=== PATIENT | female | born 1990 | race Hispanic/Latino ===

== ENCOUNTER 2020-05-08 03:12 | Inpatient (IN) | payer SELFPAY ==
[2020-05-08 03:58] LABS: Urine Blood NEGATIVE (NEG); Urine Glucose NEGATIVE (NEG); Urine Protein NEGATIVE (NEG); Urine Specific Gravity 1.025 (1.005-1.030)
[2020-05-08] MEDS ORDERED: ONDANSETRON 4 MG/2 ML VIAL ONE ×3 (05:06→11:17)
[2020-05-08] MEDS ORDERED: NA CHLORIDE 0.9% 1,000 ML ONE ×2 (05:06→07:31)
[2020-05-08] MEDS ORDERED: MORPHINE 4 MG/ML SYR ONE (05:06)
[2020-05-08 05:09] LABS: Absolute Lymphocytes (CBC) 1.4 K/uL (0.7-4.9); Basophils % 1.4 % (0-1.3); Hematocrit 41.4 % (36.0-45.0); Lymphocytes % 8.1 % (15.3-44.8); MPV 8.5 fL (7.6-11.3); RBC Red Blood Cell Count 4.55 M/uL (3.86-4.86)
[2020-05-08 05:38] LABS: ALT/SGPT 68 U/L (12-78); AST/SGOT 27 U/L (15-37); Albumin 3.5 g/dL (3.4-5.0); Alkaline Phosphatase 112 U/L (45-117); BUN Blood Urea Nitrogen 8 mg/dL (7-18); Bicarbonate 22 mmol/L (21-32); Bilirubin Direct 0.2 mg/dL (0-0.2); Bilirubin Total 0.8 mg/dL (0.2-1.0); Glucose Level 134 mg/dL (74-106); Lipase 130 U/L (73-393); Potassium 3.3 mmol/L (3.5-5.1); Protein, Total 7.9 g/dL (6.4-8.2); Sodium Level 137 mmol/L (136-145)
[2020-05-08] MEDS ORDERED: CIPROFLOXACIN 400mg IV 400 MG/200 ML BAG IV ONE (07:31)
[2020-05-08] MEDS ORDERED: METRONIDAZOLE 500mg IVPB 500 MG/100 ML BAG IV ONE (07:31)
--- NOTE | 2020-05-08 07:47 | ER ---
Nurse's Notes [facility] Name: Shamika Sam Age: 30 yrs Sex: Female : 1990 Arrival Date: 05/08/2020 Time: 03:15 Bed 7 Private MD: Diagnosis: Abdominal tenderness;Fever, unspecified;Diverticulitis of large intestine without perforation or abscess without bleeding-sigmoid;Obesity, unspecified;Elevated white blood cell count Presentation: 05/08 03:27 Chief complaint: Patient states: lower pelvic pain that began 2 days ago; Denies lp1 burning with urination, fever; Reports some episodes of diarrhea. Coronavirus screen: Client denies travel out of the [place] in the last 14 days. At this time, the client does not indicate any symptoms associated with coronavirus-19. Ebola Screen: No symptoms or risks identified at this time. Risk Assessment: Do you want to hurt yourself or someone else? Patient reports no desire to harm self or others. Onset of symptoms was May 06, 2020. 03:27 Method Of Arrival: Ambulatory lp1 03:27 Acuity: JEANNETTE 3 lp1 03:32 Initial Sepsis Screen: Does the patient meet any 2 criteria? HR > 90 bpm. Does the lp1 patient have a suspected source of infection? No. Patient's initial sepsis screen is negative. 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 - Social history:: Smoking status: Patient denies any tobacco usage or history of. Screenin:35 Abuse screen: Denies threats or abuse. Denies injuries from another. Nutritional lp1 screening: No deficits noted. Tuberculosis screening: No symptoms or risk factors identified. Fall Risk None identified. Assessment: 04:55 General: Appears in no apparent distress. comfortable, Behavior is calm, cooperative. mg2 Pain: Complains of pain in left lower quadrant and suprapubic area Pain does not radiate. Pain currently is 8 out of 10 on a pain scale. Neuro: Level of Consciousness is awake, alert, obeys commands, Oriented to person, place, time, situation. Cardiovascular: Capillary refill < 3 seconds Patient's skin is warm and dry. Respiratory: Airway is patent Respiratory effort is even, unlabored, Respiratory pattern is regular, symmetrical. GI: Bowel sounds present X 4 quads. Abd is soft Reports lower abdominal pain. : Reports pain in suprapubic area. EENT: No signs and/or symptoms were reported regarding the EENT system. Derm: Skin is intact, is healthy with good turgor, Skin is pink, warm \T\ dry. normal. Musculoskeletal: Circulation, motion, and sensation intact. Capillary refill < 3 seconds. 05:47 Reassessment: Patient appears in no apparent distress at this time. Patient and/or mg2 family updated on plan of care and expected duration. Pain level reassessed. Patient is alert, oriented x 3, equal unlabored respirations, skin warm/dry/pink. 07:30 General: Appears in no apparent distress. uncomfortable, Behavior is calm, cooperative. em Pain: Complains of pain in right lower quadrant and left lower quadrant Pain currently is 9 out of 10 on a pain scale. Neuro: Level of Consciousness is awake, alert, obeys commands, Oriented to person, place, time, situation, Appropriate for age. Cardiovascular: Capillary refill < 3 seconds Patient's skin is warm and dry. Respiratory: Airway is patent Respiratory effort is even, unlabored, Respiratory pattern is regular, symmetrical. GI: Abdomen is round non-distended. Derm: Skin is intact, is healthy with good turgor, Skin is pink, warm \T\ dry. Musculoskeletal: Capillary refill < 3 seconds, Range of motion: intact in all extremities. 08:25 Reassessment: Patient appears in no apparent distress at this time. Patient and/or em family updated on plan of care and expected duration. Pain level reassessed. Patient is alert, oriented x 3, equal unlabored respirations, skin warm/dry/pink. 11:00 Reassessment: Patient appears in no apparent distress at this time. Patient and/or em family updated on plan of care and expected duration. Pain level reassessed. Patient is alert, oriented x 3, equal unlabored respirations, skin warm/dry/pink. reports pain is coming back, Dr. Valdez notified, received VO to repeat Zofran and Dilaudid. Vital Signs: 03:32 BP 155 / 101; Pulse 130; Resp 20; Temp 99.7(O); Pulse Ox 100% on R/A; Weight 122.47 kg lp1 (R); Height 5 ft. 1 in. (154.94 cm); Pain 9/10; 05:47 BP 133 / 94; Pulse 106; Resp 18; Pulse Ox 100% on R/A; mg2 05:48 BP 136 / 85; Pulse 109; Resp 18; Pulse Ox 96% on R/A; ea 07:30 BP 124 / 73; Pulse 103; Resp 20; Pulse Ox 98% on R/A; Pain 9/10; em 09:00 BP 126 / 82; Pulse 101; Resp 20; Pulse Ox 98% on R/A; Pain 6/10; em 10:30 BP 126 / 82; Pulse 97; Resp 18; Temp 98.2; Pulse Ox 97% on R/A; Pain 8/10; em 03:32 Body Mass Index 51.02 (122.47 kg, 154.94 cm) lp1 ED Course: 03:15 Patient arrived in ED. am2 03:31 Triage completed. lp1 03:31 Arm band placed on. lp1 04:29 Enrike Oates MD is Attending Physician. 7 04:36 Rola Núñez, CAT is Primary Nurse. ea 04:45 Inserted saline lock: 22 gauge in right forearm, using aseptic technique. Blood ds4 collected. 04:56 Patient has correct armband on for positive identification. Pulse ox on. NIBP on. mg2 04:56 No provider procedures requiring assistance completed. mg2 06:13 CT Abd/Pelvis - IV Contrast Only In Process Unspecified. EDMS 07:17 Attending Physician role handed off by Enrike Oates MD faisal 07:17 Francis Valdez MD is Attending Physician. faisal 07:44 Baljeet Raymundo MD is Hospitalizing Provider. faisal 11:08 Patient admitted, IV remains in place. em Administered Medications: 04:54 Drug: morphine 4 mg Route: IVP; Site: right forearm; mg2 05:47 Follow up: Response: No adverse reaction; Marked relief of symptoms mg2 04:54 Drug: Zofran (Ondansetron) 4 mg Route: IVP; Site: right forearm; mg2 05:47 Follow up: Response: No adverse reaction; Marked relief of symptoms mg2 04:55 Drug: NS 0.9% 1000 ml Route: IV; Rate: 1000 ml; Site: right forearm; mg2 05:45 Follow up: Response: No adverse reaction; IV Status: Completed infusion; IV Intake: mg2 1000ml 07:29 Drug: Flagyl 500 mg Volume: 100 ml; Route: IVPB; Rate: 200 ml/hr; Infused Over: 30 em mins; Site: right antecubital; 08:02 Follow up: Response: No adverse reaction; IV Status: Completed infusion; IV Intake: em 100ml 07:29 Drug: NS 0.9% 1000 ml Route: IV; Rate: 1000 ml; Site: right antecubital; em 09:47 Follow up: IV Status: Completed infusion; IV Intake: 1000ml em 07:42 Drug: Zofran (Ondansetron) 4 mg Route: IVP; Site: right antecubital; em 08:30 Follow up: Response: No adverse reaction em 07:45 Drug: Dilaudid 1 mg Route: IVP; Site: right antecubital; em 08:30 Follow up: Response: No adverse reaction; Marked relief of symptoms; Pain is decreased; em RASS: Alert and Calm (0) 08:03 Drug: Cipro 400 mg Volume: 200 ml; Route: IVPB; Infused Over: 60 mins; Site: right em antecubital; 09:46 Follow up: Response: No adverse reaction; IV Status: Completed infusion; IV Intake: em 200ml 09:46 Drug: Rocephin 2 grams Route: IV; Rate: per protocol; Site: right antecubital; em 10:30 Follow up: Response: No adverse reaction; IV Status: Completed infusion; IV Intake: 20mlem 11:08 Drug: Zofran (Ondansetron) 4 mg Route: IVP; Site: right antecubital; em 11:23 Follow up: Response: No adverse reaction em 11:10 Drug: Dilaudid 1 mg Route: IVP; Site: right antecubital; em 11:23 Follow up: Response: No adverse reaction em Intake: 05:45 IV: 1000ml; Total: 1000ml. mg2 08:02 IV: 100ml; Total: 1100ml. em 09:46 IV: 200ml; Total: 1300ml. em 09:47 IV: 1000ml; Total: 2300ml. em 10:30 IV: 20ml; Total: 2320ml. em Outcome: 07:47 Decision to Hospitalize by Provider. [facility] 11:07 Admitted to Med/surg accompanied by tech, via wheelchair, room 206, Report called to zeyad Martin RN 11:07 Condition: stable 11:07 Instructed on the need for admit, Demonstrated understanding of instructions. 11:23 Patient left the ED. em Signatures: Dispatcher [employer] EDFrancis Aguayo MD MD cha Munoz, Edgar, RN RN María Colon RN RN lp1 Zac Schulz ds4 Ana Paula Hassan Elena RN Aftab Andres ea, RN RN mg2 Holmes, Maurice, MD MD 7
--- NOTE | 2020-05-08 07:48 | EDPHYS ---
Physician Documentation [facility] Name: Shamika Sam Age: 30 yrs Sex: Female : 1990 Arrival Date: 05/08/2020 Time: 03:15 Bed 7 Private MD: ED Physician Francis Valdez HPI: 05/08 04:43 This 30 yrs old Female presents to ER via Ambulatory with complaints of mh7 Abdominal Pain - low, Pain With Urination. 04:43 The patient presents with abdominal pain in the lower abdomen. Onset: The mh7 symptoms/episode began/occurred 2 day(s) ago. The symptoms do not radiate. Associated signs and symptoms: Pertinent negatives: nausea, vomiting, and diarrhea, anorexia, blood in stools, chest pain, constipation, diarrhea, dysuria, fever, headache, hematuria, nausea, palpitations, shortness of breath, vaginal discharge, vomiting, vomiting blood. The symptoms are described as intermittent, vague, waxing/waning. Modifying factors: The symptoms are alleviated by nothing, the symptoms are aggravated by movement. Severity of pain: At its worst the pain was moderate yesterday, in the emergency department the pain is unchanged. 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 - Social history:: Smoking status: Patient denies any tobacco usage or history of. ROS: 04:43 Constitutional: Negative for fever, chills, and weight loss, Eyes: Negative for injury, mh7 pain, redness, and discharge, ENT: Negative for injury, pain, and discharge, Neck: Negative for injury, pain, and swelling, Cardiovascular: Negative for chest pain, palpitations, and edema, Respiratory: Negative for shortness of breath, cough, wheezing, and pleuritic chest pain, Back: Negative for injury and pain, : Negative for injury, bleeding, discharge, and swelling, MS/Extremity: Negative for injury and deformity, Skin: Negative for injury, rash, and discoloration, Neuro: Negative for headache, weakness, numbness, tingling, and seizure, Psych: Negative for depression, anxiety, suicide ideation, homicidal ideation, and hallucinations, Allergy/Immunology: Negative for hives, rash, and allergies, Endocrine: Negative for neck swelling, polydipsia, polyuria, polyphagia, and marked weight changes, Hematologic/Lymphatic: Negative for swollen nodes, abnormal bleeding, and unusual bruising. Exam: 04:43 Head/Face: Normocephalic, atraumatic. Eyes: Pupils equal round and reactive to light, mh7 extra-ocular motions intact. Lids and lashes normal. Conjunctiva and sclera are non-icteric and not injected. Cornea within normal limits. Periorbital areas with no swelling, redness, or edema. Neck: Trachea midline, no thyromegaly or masses palpated, and no cervical lymphadenopathy. Supple, full range of motion without nuchal rigidity, or vertebral point tenderness. No Meningismus. Chest/axilla: Normal chest wall appearance and motion. Nontender with no deformity. No lesions are appreciated. Cardiovascular: Regular rate and rhythm with a normal S1 and S2. No gallops, murmurs, or rubs. Normal PMI, no JVD. No pulse deficits. Respiratory: Lungs have equal breath sounds bilaterally, clear to auscultation and percussion. No rales, rhonchi or wheezes noted. No increased work of breathing, no retractions or nasal flaring. 04:43 Back: No spinal tenderness. No costovertebral tenderness. Full range of motion. Skin: Warm, dry with normal turgor. Normal color with no rashes, no lesions, and no evidence of cellulitis. MS/ Extremity: Pulses equal, no cyanosis. Neurovascular intact. Full, normal range of motion. Neuro: Awake and alert, GCS 15, oriented to person, place, time, and situation. Cranial nerves II-XII grossly intact. Motor strength 5/5 in all extremities. Sensory grossly intact. Cerebellar exam normal. Normal gait. Psych: Awake, alert, with orientation to person, place and time. Behavior, mood, and affect are within normal limits. 04:43 Constitutional: The patient appears in no acute distress, alert, awake, uncomfortable. 04:43 Abdomen/GI: Inspection: obese Bowel sounds: normal, in all quadrants, Palpation: moderate abdominal tenderness, in the suprapubic area and left lower quadrant, Rectal exam: the exam is deferred, because of patient request, Indicators: McBurney's point is not tender, Vidales's sign is negative, Rovsing's sign is negative, Obturator sign is negative, Psoas sign is negative, Liver: no appreciated palpable abnormalities, Hernia: not appreciated. Vital Signs: 03:32 BP 155 / 101; Pulse 130; Resp 20; Temp 99.7(O); Pulse Ox 100% on R/A; Weight 122.47 kg lp1 (R); Height 5 ft. 1 in. (154.94 cm); Pain 9/10; 05:47 BP 133 / 94; Pulse 106; Resp 18; Pulse Ox 100% on R/A; mg2 05:48 BP 136 / 85; Pulse 109; Resp 18; Pulse Ox 96% on R/A; ea 07:30 BP 124 / 73; Pulse 103; Resp 20; Pulse Ox 98% on R/A; Pain 9/10; em 09:00 BP 126 / 82; Pulse 101; Resp 20; Pulse Ox 98% on R/A; Pain 6/10; em 10:30 BP 126 / 82; Pulse 97; Resp 18; Temp 98.2; Pulse Ox 97% on R/A; Pain 8/10; em 03:32 Body Mass Index 51.02 (122.47 kg, 154.94 cm) lp1 MDM: 07:17 Patient medically screened. faisal 07:26 Differential diagnosis: bowel obstruction, diverticulitis, Irritable bowel syndrome, faisal non-specific abd pain, pancreatitis, Peritonitis, Ureterolithiasis, urinary tract infection. Data reviewed: vital signs, nurses notes, lab test result(s), EKG, radiologic studies, CT scan. Data interpreted: front desk monitor: rate is 109 beats/min, rhythm is regular, Pulse oximetry: on room air is 96 %. Test interpretation: by ED physician or midlevel provider:. Counseling: I had a detailed discussion with the patient and/or guardian regarding: the historical points, exam findings, and any diagnostic results supporting the discharge/admit diagnosis, lab results, radiology results. 05/08 03:44 Order name: Urine --Ancillary (enter results); Complete Time: 04:30 tt3 05/08 03:44 Order name: Urine Dipstick--Ancillary (enter results); Complete Time: 04:30 tt3 05/08 04:36 Order name: Basic Metabolic Panel; Complete Time: 05:47 ea 05/08 04:36 Order name: CBC with Diff 05/08 04:36 Order name: Hepatic Function; Complete Time: 05:47 ea 05/08 04:36 Order name: Lipase; Complete Time: 05:47 ea 05/08 04:42 Order name: CT Abd/Pelvis - IV Contrast Only [facility] 05/08 05:26 Order name: Manual Differential EDMS 05/08 05:53 Order name: Lactate; Complete Time: 07:03 [facility] 05/08 05:53 Order name: Procalcitonin; Complete Time: 07:03 [facility] 05/08 03:44 Order name: Urine Dipstick-Ancillary (obtain specimen); Complete Time: 03:47 tt3 05/08 03:44 Order name: Urine Test (obtain specimen); Complete Time: 03:47 tt3 05/08 04:36 Order name: IV Saline Lock; Complete Time: 04:49 05/08 04:36 Order name: Labs collected and sent; Complete Time: 04:49 ea Administered Medications: 04:54 Drug: morphine 4 mg Route: IVP; Site: right forearm; mg2 05:47 Follow up: Response: No adverse reaction; Marked relief of symptoms mg2 04:54 Drug: Zofran (Ondansetron) 4 mg Route: IVP; Site: right forearm; mg2 05:47 Follow up: Response: No adverse reaction; Marked relief of symptoms mg2 04:55 Drug: NS 0.9% 1000 ml Route: IV; Rate: 1000 ml; Site: right forearm; mg2 05:45 Follow up: Response: No adverse reaction; IV Status: Completed infusion; IV Intake: mg2 1000ml 07:29 Drug: Flagyl 500 mg Volume: 100 ml; Route: IVPB; Rate: 200 ml/hr; Infused Over: 30 em mins; Site: right antecubital; 08:02 Follow up: Response: No adverse reaction; IV Status: Completed infusion; IV Intake: em 100ml 07:29 Drug: NS 0.9% 1000 ml Route: IV; Rate: 1000 ml; Site: right antecubital; em 09:47 Follow up: IV Status: Completed infusion; IV Intake: 1000ml em 07:42 Drug: Zofran (Ondansetron) 4 mg Route: IVP; Site: right antecubital; em 08:30 Follow up: Response: No adverse reaction em 07:45 Drug: Dilaudid 1 mg Route: IVP; Site: right antecubital; em 08:30 Follow up: Response: No adverse reaction; Marked relief of symptoms; Pain is decreased; em RASS: Alert and Calm (0) 08:03 Drug: Cipro 400 mg Volume: 200 ml; Route: IVPB; Infused Over: 60 mins; Site: right em antecubital; 09:46 Follow up: Response: No adverse reaction; IV Status: Completed infusion; IV Intake: em 200ml 09:46 Drug: Rocephin 2 grams Route: IV; Rate: per protocol; Site: right antecubital; em 10:30 Follow up: Response: No adverse reaction; IV Status: Completed infusion; IV Intake: 20mlem 11:08 Drug: Zofran (Ondansetron) 4 mg Route: IVP; Site: right antecubital; em 11:23 Follow up: Response: No adverse reaction em 11:10 Drug: Dilaudid 1 mg Route: IVP; Site: right antecubital; em 11:23 Follow up: Response: No adverse reaction em Disposition: 05/08/20 07:47 Hospitalization ordered by Baljeet Raymundo for Inpatient Admission. Preliminary diagnosis are Abdominal tenderness, Fever, unspecified, Diverticulitis of large intestine without perforation or abscess without bleeding - sigmoid, Obesity, unspecified, Elevated white blood cell count. - Bed requested for Telemetry/MedSurg (Inpatient). - Status is Inpatient Admission. em - Condition is Stable. - Problem is new. - Symptoms have improved. Signatures: Dispatcher [employer] EDUT Francis Valdez MD MD cha Munoz, Edgar RN María Johnson RN RN lp1 Rola Núñez RN Jose Sanz ea, RN RN ja1 Aftab Limon RN RN mg2 Holmes, Maurice, MD MD mh7 Trim, Tyler tt3 Corrections: (The following items were deleted from the chart) 10:25 07:47 Hospitalization Ordered by Baljeet Raymundo MD for Inpatient Admission. Preliminary ja1 diagnosis is Abdominal tenderness; Fever, unspecified; Diverticulitis of large intestine without perforation or abscess without bleeding - sigmoid; Obesity, unspecified; Elevated white blood cell count. Bed requested for Telemetry/MedSurg (Inpatient). Status is Inpatient Admission. Condition is Stable. Problem is new. Symptoms have improved. faisal 11:23 10:25 05/08/2020 07:47 Hospitalization Ordered by Baljeet Raymundo MD for Inpatient em Admission. Preliminary diagnosis is Abdominal tenderness; Fever, unspecified; Diverticulitis of large intestine without perforation or abscess without bleeding - sigmoid; Obesity, unspecified; Elevated white blood cell count. Bed requested for Telemetry/MedSurg (Inpatient). Status is Inpatient Admission. Condition is Stable. Problem is new. Symptoms have improved. ja1
[2020-05-08] MEDS ORDERED: CEFTRIAXONE/SWI 1gm 2 GM/20 ML SYR ONE (07:53)
[2020-05-08] MEDS ORDERED: HYDROMORPHONE HCL 1 MG/ML INJ ONE ×2 (07:53→11:17)
--- NOTE | 2020-05-08 08:35 | P.HP ---
Certification for Inpatient Patient admitted to: Inpatient With expected LOS: >2 Midnights Practitioner: I am a practitioner with admitting privileges, knowledge of patient current condition, hospital course, and medical plan of care. Services: Services provided to patient in accordance with Admission requirements found in Title 42 Section 412.3 of the Code of Federal Regulations Patient History Date of Service: 05/08/20 Primary Care Provider: none Reason for admission: acute diverticulitis History of Present Illness: 30yo morbidly obese female, no significant PMH presents to ED with 2-3 days of worsening lower abdominal pain, associated with chills and nausea. Pain is worsened with movement and becomes nauseous when pain is severe. Most severe in LLQ. She reports otherwise in her usual state of health before this occurred. No recent illness / sick contacts, no diarrhea. CT abd/pelvis in ED revealed acute diverticulitis without perforation, leukocytosis: 16k. Patient does not appear septic. She was given pain medication but continued with pain and some nausea. Allergies No Known Allergie Allergy (Uncoded 11/22/16 14:48) Unknown Home medications list reviewed: Yes - Past Medical/Surgical History Diabetic: No Past Medical History: Patient denies medical history -: umbilical hernia repaired - Family History Family History: Reviewed- Non-Contributory (denies immediate family history - 2 maternal aunts with h/o diverticulitis) - Social History Smoking Status: Never smoker Alcohol use: Yes Place of Residence: Home Review of Systems 10-point ROS is otherwise unremarkable Physical Examination - Physical Exam General: Alert, Mild distress, Obese HEENT: Sclerae nonicteric Neck: Supple Respiratory: Clear to auscultation bilaterally Cardiovascular: No edema, Regular rate/rhythm, No murmurs Gastrointestinal: Non-distended, Tenderness (left-side, most severe in LLQ, +guarding) Musculoskeletal: No tenderness Integumentary: No rashes, No significant lesion Neurological: Normal speech, Normal affect - Studies Laboratory Data (last 24 hrs) 05/08/20 04:46: WBC 16.9 H, Hgb 13.8, Hct 41.4, Plt Count 327 05/08/20 04:46: Sodium 137, Potassium 3.3 L, BUN 8, Creatinine 0.64, Glucose 134 H, Total Bilirubin 0.8, AST 27, ALT 68, Alkaline Phosphatase 112, Lipase 130 Assessment and Plan - Advance Directives Does patient have a Living Will: No Does patient have a Durable POA for Healthcare: No Physician Review Additional Text: Acute Sigmoid Diverticulitis SIRS 2/4 - tachycardia, leukocytosis, afebrile, no tachypnea; qSOFA: 0 tachycardia secondary to acute sigmoid diverticulitis. improved with IVF bolus no evidence of perforation on exam continues with significant pain NPO with sips/ice chips, IVF pain control serial abdominal exams VTE: heparin Dispo: anticipate discharge home in ~48hrs Time Spent Managing Pts Care (In Minutes): 55
[2020-05-08 09:42] LABS: Blood Morphology Comment NOT SEEN (NOT SEEN); Platelet Estimate ADEQ
[2020-05-08 11:52] VITALS: BMI 51.0
[2020-05-08] MEDS: NA CHLORIDE 0.9% 1,000 ML IV SCH (12:08)
[2020-05-08] MEDS: HEPARIN 5000 UNIT/ML 1 ML VIAL SQ SCH ×2 (12:58→17:27)
--- NOTE | 2020-05-08 13:38 | RAD REPORT ---
EXAM DESCRIPTION: CT abdomen and pelvis with IV contrast CLINICAL HISTORY: 30 years Female ABD PAIN, lower pelvic pain that began 2 days ago TECHNIQUE: Axial CT imaging of the abdomen and pelvis was performed following the administration of intravenous contrast.. Oral contrast was not administered. Sagittal and coronal reconstructed image s were then performed. The CT study is performed according to ALARA (as low as reasonably achievabl e) or ALARA/IMAGE GENTLY, with automatic adjustment of mA and/or kV according to patient size. Performed on: 05/08/2020 at 6:02 AM. COMPARISON: No prior studies were available for comparison. FINDINGS: Lung bases: The lung bases are clear. There is minimal bibasilar atelectasis and/or fibros is. Liver: The liver is enlarged and measures 20 cm in craniocaudal dimension. No focal hepatic abnormali ties are identified. There is decreased attenuation of the liver which is commonly due to fatty infil tration. The hepatic and portal veins are patent. Spleen: The spleen is normal is size, configuration and attenuation. Gallbladder and bile duct: The gallbladder is well distended and unremarkable. There is no biliary ductal dilatation. Pancreas: The pancreas is grossly normal in size and configuration. Adrenal Glands: The adrenal glands are normal in size and configuration. Kidneys: The kidneys are normal in size and configuration. There is no evidence of hydronephrosis. Th ere is a punctate nonobstructing left renal calculus. No definite solid or cystic renal mass lesions are identified. Stomach: The stomach is grossly normal. There is no definite hiatal hernia. Bowel: The bowel gas pattern is non specific and non obstructive. There is mild colonic wall thickeni ng involving the sigmoid portion of the colon with surrounding pericolonic inflammation and edema lik katie due to acute diverticulitis. There is minimal colonic diverticulosis. There is no evidence of per foration or peridiverticular abscess. Appendix: The appendix is normal. Free air: There is no evidence of free air. Free fluid: There is no evidence of free fluid. Vasculature: The aorta is normal in caliber and contour. The inferior vena cava is grossly unremarkab le. Lymphadenopathy: No pathologic lymphadenopathy is identified. Bladder: The bladder is well distended and smooth in contour. Reproductive: The uterus is grossly within normal limits. The adnexal regions are grossly unremarkabl e. Bones: No acute osseous abnormalities are identified. Soft tissues: No acute soft tissue abnormalities are identified. There is a small fat-containing vent ral umbilical hernia. IMPRESSION: 1. CT findings most consistent with acute sigmoid colon diverticulitis without evidence of perforation or peridiverticular abscess. 2. Punctate nonobstructing left renal calculus. 3. Hepatomegaly and decreased attenuation of the liver commonly due to fatty infiltration. 4. Small fat-containing ventral umbilical hernia. Electronically signed by: Yessenia Mobley DO 05/08/2020 6:36 AM [employer] Due to temporary technical issues with the PACS/Fluency reporting system, reports are being signed by the in house radiologists without review as a courtesy to insure prompt reporting. The interpreting radiologist is fully responsible for the content of the report.
[2020-05-08] MEDS ORDERED: POTASSIUM CL SA 10 MEQ TAB PO ONE (14:00)
[2020-05-08] MEDS: MORPHINE 4 MG/ML SYR IV PRN ×2 (14:32→23:57)
[2020-05-08] MEDS: METRONIDAZOLE 500mg IVPB 500 MG/100 ML BAG IV SCH (17:26)
[2020-05-08] MEDS: CIPROFLOXACIN 400mg IV 400 MG/200 ML BAG IV SCH (20:20)
[2020-05-09] MEDS: METRONIDAZOLE 500mg IVPB 500 MG/100 ML BAG IV SCH ×3 (00:19→16:57)
[2020-05-09] MEDS: HEPARIN 5000 UNIT/ML 1 ML VIAL SQ SCH ×3 (00:19→16:58)
[2020-05-09] MEDS: ONDANSETRON 4 MG/2 ML VIAL IV PRN (00:23)
[2020-05-09] MEDS: NA CHLORIDE 0.9% 1,000 ML IV SCH ×3 (04:53→15:27)
[2020-05-09 05:27] LABS: Absolute Lymphocytes (CBC) 1.9 K/uL (0.7-4.9); Basophils % 0.5 % (0-1.3); Hematocrit 36.3 % (36.0-45.0); MPV 8.9 fL (7.6-11.3); RBC Red Blood Cell Count 3.98 M/uL (3.86-4.86)
[2020-05-09 05:49] LABS: ALT/SGPT 45 U/L (12-78); AST/SGOT 16 U/L (15-37); Albumin 2.9 g/dL (3.4-5.0); Alkaline Phosphatase 97 U/L (45-117); BUN Blood Urea Nitrogen 5 mg/dL (7-18); Bicarbonate 24 mmol/L (21-32); Bilirubin Total 0.8 mg/dL (0.2-1.0); Glucose Level 104 mg/dL (74-106); Potassium 3.4 mmol/L (3.5-5.1); Protein, Total 6.9 g/dL (6.4-8.2); Sodium Level 139 mmol/L (136-145)
[2020-05-09] MEDS: CIPROFLOXACIN 400mg IV 400 MG/200 ML BAG IV SCH ×2 (08:42→21:00)
[2020-05-09] MEDS: KCL 20 MEQ/100 mL IVPB 20 MEQ/100 ML BAG IV SCH ×2 (09:53→12:00)
--- NOTE | 2020-05-09 12:32 | P.PN ---
Subjective Date of Service: 05/09/20 Primary Care Provider: none Chief Complaint: acute diverticulitis Subjective: Improving (reports some improvement in pain. no nausea/vomiting. had BM yesterday, was loose. continues with LLQ pain, requiring pain medication. tolerating sips of water / ice chips) Review of Systems 10-point ROS is otherwise unremarkable Physical Examination - Vital Signs Temperature: 98.3 F Blood Pressure: 110/55 Pulse: 98 Respirations: 18 Pulse Ox (%): 97 - Physical Exam General: Alert, In no apparent distress HEENT: Sclerae nonicteric Respiratory: Clear to auscultation bilaterally Cardiovascular: No edema, Regular rate/rhythm Gastrointestinal: Soft and benign, Non-distended, No rebound, No guarding, Tenderness (LLQ) Musculoskeletal: No tenderness Integumentary: No rashes Neurological: Normal speech, Normal affect Assessment & Plan Physician Review Additional Text: Acute Sigmoid Diverticulitis SIRS 2/4 - tachycardia, leukocytosis, afebrile, no tachypnea; qSOFA: 0 - on admission patient with some improvement overnight WBC improved continue IV cipro & flagyl continue IVF, will advance to [facility] for dinner pain control with morphine continue serial abdominal exams VTE: heparin Dispo: anticipate discharge home in ~24-48hrs Time Spent Managing Pts Care (In Minutes): 35
[2020-05-09 22:32] VITALS: O2SAT 99
[2020-05-10] MEDS: METRONIDAZOLE 500mg IVPB 500 MG/100 ML BAG IV SCH ×2 (00:59→08:13)
[2020-05-10] MEDS: HEPARIN 5000 UNIT/ML 1 ML VIAL SQ SCH ×2 (00:59→08:14)
[2020-05-10] MEDS ORDERED: ACETAMINOPHEN 500 MG TAB PO ONE (01:32)
[2020-05-10] MEDS: ONDANSETRON 4 MG/2 ML VIAL IV PRN (01:40)
[2020-05-10 06:01] LABS: Absolute Lymphocytes (CBC) 1.6 K/uL (0.7-4.9); Basophils % 0.5 % (0-1.3); Hematocrit 37.4 % (36.0-45.0); Lymphocytes % 16.7 % (15.3-44.8); MPV 8.3 fL (7.6-11.3); RBC Red Blood Cell Count 4.11 M/uL (3.86-4.86)
[2020-05-10] MEDS: NA CHLORIDE 0.9% 1,000 ML IV SCH ×2 (06:03→12:18)
[2020-05-10 06:25] LABS: ALT/SGPT 47 U/L (12-78); AST/SGOT 29 U/L (15-37); Albumin 3.1 g/dL (3.4-5.0); Alkaline Phosphatase 124 U/L (45-117); BUN Blood Urea Nitrogen 5 mg/dL (7-18); Bicarbonate 24 mmol/L (21-32); Bilirubin Total 0.6 mg/dL (0.2-1.0); Glucose Level 102 mg/dL (74-106); Magnesium 2.3 mg/dL (1.8-2.4); Potassium 3.4 mmol/L (3.5-5.1); Protein, Total 7.6 g/dL (6.4-8.2); Sodium Level 140 mmol/L (136-145)
[2020-05-10] MEDS: CIPROFLOXACIN 400mg IV 400 MG/200 ML BAG IV SCH (08:14)
[2020-05-10] MEDS ORDERED: POTASSIUM CL SA 10 MEQ TAB PO ONE (09:00)
[2020-05-10 12:51] VITALS: BP 144/98; TEMP 97.4
--- NOTE | 2020-05-10 14:30 | P.DS ---
Admission Date: 05/08/20 Discharge Date: 05/10/20 Primary Care Provider: none Disposition: ROUTINE DISCHARGE Discharge Condition: GOOD Reason for Admission: acute diverticulitis Procedures: CT Abd/ Pelvis (05/08): findings most consistent with acute sigmoid colon diverticulitis without evidence of perforation or pediverticular abscess. Punctate nonobstructing left renal calculus. Hepatomegaly and decreased a ttenuation of the liver commony due to fatty infiltration. Small fat-containing ventral umbilical hernia Problem List Acute Sigmoid Diverticulitis Morbid Obesity Brief History of Present Illness: 30yo morbidly obese female, no significant PMH presents to ED with 2-3 days of worsening lower abdominal pain, associated with chills and nausea. Pain is worsened with movement and becomes nauseous when pain is severe. Most severe in LLQ. She reports otherwise in her usual state of health before this occurred. No recent illness / sick contacts, no diarrhea. CT abd/pelvis in ED revealed acute diverticulitis without perforation, leukocytosis: 16k. Patient does not appear septic. She was given pain medication but continued with pain and some nausea in the ED so she was admitted for further management. Hospital Course: She was treated with IV Antibiotics, IVF, and diet was slowly advanced. Her symptoms significantly improved throughout her hospitalization. On day of discharge her pain was 0-1/10, she did not require any pain medication, tolerated a soft diet without nausea, and was having formed bowel movements. She was discharged home to continue Cipro & Flagyl PO for 10 days. She was instructed to follow up with PCP and consider seeing GI given family history of colitis/diverticulitis. Vital Signs/Physical Exam: Temp Pulse Resp BP Pulse Ox 97.4 F 95 H 16 144/98 H 95 05/10/20 12:00 05/10/20 12:00 05/10/20 12:00 05/10/20 12:00 05/10/20 12:00 General: Alert, In no apparent distress, Obese HEENT: Sclerae nonicteric Respiratory: Clear to auscultation bilaterally, Normal air movement Cardiovascular: No edema, Regular rate/rhythm Gastrointestinal: Soft and benign, Non-distended, No tenderness Musculoskeletal: No tenderness Integumentary: No rashes Neurological: Normal speech, Normal affect Laboratory Data at Discharge: WBC 9.8 K/uL (4.3-10.9) D 05/10/20 05:39 Hgb 12.6 g/dL (12.0-15.0) 05/10/20 05:39 Hct 37.4 % (36.0-45.0) 05/10/20 05:39 Plt Count 343 K/uL (152-406) D 05/10/20 05:39 Sodium 140 mmol/L (136-145) 05/10/20 05:39 Potassium 3.4 mmol/L (3.5-5.1) L 05/10/20 05:39 BUN 5 mg/dL (7-18) L 05/10/20 05:39 Creatinine 0.54 mg/dL (0.55-1.3) L 05/10/20 05:39 Glucose 102 mg/dL (74-106) 05/10/20 05:39 Magnesium 2.3 mg/dL (1.8-2.4) 05/10/20 05:39 Total Bilirubin 0.6 mg/dL (0.2-1.0) 05/10/20 05:39 AST 29 U/L (15-37) 05/10/20 05:39 ALT 47 U/L (12-78) 05/10/20 05:39 Alkaline Phosphatase 124 U/L (45-117) H 05/10/20 05:39 Lipase 130 U/L (73-393) 05/08/20 04:46 Home Medications: Ciprofloxacin HCl [Cipro 500 MG Tablet] 500 mg PO BID 10 Days #20 tab 05/10/20 Ondansetron [Zofran] 4 mg PO Q6H PRN #10 tab 05/10/20 metroNIDAZOLE [Flagyl] 500 mg PO Q8H 10 Days #30 tablet 05/10/20 New Medications: Ciprofloxacin HCl [Cipro 500 MG Tablet] 500 mg PO BID 10 Days #20 tab metroNIDAZOLE [Flagyl] 500 mg PO Q8H 10 Days #30 tablet Ondansetron [Zofran] 4 mg PO Q6H PRN #10 tab PRN Reason: Nausea / Vomiting Patient Discharge Instructions: You had acute diverticulitis, new medications on discharge: 10 days of ciprofloxacin and metronidazole (antibiotics). Continues with bland diet for next few days. Follow up with your PCP within 1 week. Consider following up with GI doctor as well. Diet: Cullen Activity: Ad teresita Followup: NONE,NONE [Primary Care Provider] - Dru Abraham MD [ASSOCIATE-ACTIVE - CAN ADMIT] - Time spent managing pt's care (in minutes): 40
== END 2020-05-10 15:30 | disposition home or self-care (01) | DRG 392 ==
LOC: ER 03:12 → ERHOLD 08:25 → 2ND 11:16
PROVIDERS: ADMIT Hospitalist; ATTEND Hospitalist
DX: K57.32 Diverticulitis of large intestine without perforation or abscess without bleeding (principal); Z68.43 Body mass index [BMI] 50.0-59.9, adult; E66.01 Morbid (severe) obesity due to excess calories; Z79.899 Other long term (current) drug therapy; Z20.828 Contact with and (suspected) exposure to other viral communicable diseases
CPT/HCPCS: 36415; 74177; 80048; 80053; 80076; 81003; 81025; 82947; 83605; 83690; 83735; 84132; 84145; 85025; 94760; 99285; J0696; J0744; J1170; J1644; J2405; J3480; J7030; Q9967; U0002

== ENCOUNTER 2021-04-03 11:07 | Inpatient (IN) | payer SELFPAY ==
--- OUTSIDE RECORDS SUMMARY | 2021-04-03 11:11 | XMS REPORT | Continuity of Care Document ---
:1990 Author Organization [facility] t Address [address] [place] [address] Care Team Providers Name Role Phone Pcp, Does Not Have A Primary Care Physician Avni REILLY Attending Clinician Ivan CARLOS Attending Clinician Mike GUTIERREZ Attending Clinician Doctor Unassigned, Name Attending Clinician Unavailable Mike GUTIERREZ Admitting Clinician Payers Payer Name Policy Type Policy Number Effective Date Expiration Date S ource Problems Condition Condition Condition Status Onset Resolution Last Treating Co mments Source Name Details Category Date Date Treatment Clinician Date Perforated 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 0-15 it y of um of um of 00:00: [place] large large 00 Medical intestine intestine Bran ch BV BV Disease Active Univers (bacterial (bacterial 6-10 it y of vaginosis) vaginosis[place] 00 [place] Yeast Yeast Disease Active Univers infection infection 6-10 ity of of the of the 00:00: [place] vagina vagina 00 Medical Branch Morbid Morbid Disease Active Univers obesity obesity 6-10 ity of 00:00: [place] [address] Medical Branch Absence of Absence of Disease Active U nivers menstruati menstruati 6-10 it y of on on 00:00: [place] [address] Medical Branch Dyspareuni Dyspareuni Disease Active U nivers a a 6-10 ity of 00:00: [place] 00 Medical Branch Allergies, Adverse Reactions, Alerts Allergy Allergy Status Severity Reaction(s) Onset Inactive Treating Comm ents Source Name Type Date Date Clinician NO KNOWN Drug Active Univers ALLERGIE Class ity of S [facility] Social History Social Habit Start Date Stop Date Quantity Comments Source Exposure to Not sure [facility] SARS-CoV-2 [facility] (event) Branch Alcohol intake 2021-02-25 2021-02-25 Current University of 00:00:00 00:00:00 non-drinker of [facility] alcohol Branch (finding) Sex Ass[birth year] At [birth year] Universit y of 00:00:00 00:00:00 [facility] Smoking Status Start Date Stop Date Source Never smoker [facility] Medications Ordered Filled Start Stop Current Ordering Indication Dosage Frequency Signature Comments Components Source Medication Medication Date Date Medication? Clinician (SIG) Name Name phentermine 2020-05 Yes 37.5mg Take 37.5 Univers 37.5 mg 0-18 mg by ity of capsule 15:00: mouth [place] 43 every Medical morning. Branch phentermine 2020-05 Yes 37.5mg Take 37.5 Univers 37.5 mg 0-18 mg by ity of capsule 15:00: mouth [place] 43 every Medical morning. Branch enoxaparin 2020-05 Yes 40mg 40 mg, Unive rs (LOVENOX) 0-18 Subcutaneo ity of injection 14:15: us, Q24H, Feng as 40 mg 00 First dose Medical on Sun Branch 02/28/21 at 0915, Until Discontinu ed, Routine amoxicillin 2020-05 Yes 1{tbl} 1 tablet, Univers -clavulanat 0-18 Oral, ity of e 13:30: Q12H, [place] (AUGMENTIN) 00 First dose Me dical 875-125 mg on Sun Branch per tablet 02/28/21 1 tablet at 0830, Until Discontinu ed, Routine
Reason for Anti-Infec tive: Documented Infection< br>Documen cholo Infection Site: Abdominal< br>Duratio n of Therapy: 10 days amoxicillin 2020-05 202- Yes [id number] 1{tbl} Take 1 Univers -clavulanat 0-18 10-29 tablet by it y of e 875-125 00:00: 04:59 mouth [place] mg per 00 :00 every 12 Medical tablet (twelve) Branch hours for 10 days. Take one tablet today (02/28/21) in the evening. Starting tomorrow (03/01/21) take 1 tablet every 12 hours (twice daily). amoxicillin 2020-05- Yes [id number] 1{tbl} Take 1 Univers -clavulanat 0-18 10- tablet by it y of e 875-125 00:00: 04:59 mouth [place] mg per 00 :00 every 12 Medical tablet (twelve) Branch hours for 10 days. Take one tablet today (02/28/21) in the evening. Starting tomorrow (03/01/21) take 1 tablet every 12 hours (twice daily). ondansetron 2020-05 Yes 4mg 4 mg, Slow Univers (ZOFRAN 0-16 IV Push, ity of (PF)) 01:01: Q6HPRN, [place] injection 4 46 Starting Medi keith mg on Sun Branch 02/25/21 at 2001, Until Discontinu ed, Routine, Nausea and Vomiting (N/V) acetaminoph 2020-05 Yes 650mg 650 mg, Un luís en 0-15 Oral, Q6H, ity of (TYLENOL) 23:00: [place] tablet 650 00 on Sun Medical mg 02/25/21 Branch at 1800, Until Discontinu ed, Routine ibuprofen 2020-05 Yes 400mg 400 mg, Univ ers (IBU) 0-15 Oral, TID ity of tablet 400 22:00: MEALS, [place] mg 00 First dose Medical on Sun Branch 02/25/21 at 1700, Until Discontinu ed, Routine piperacilli 2020-05- No 3.375g 3.375 g, Univers n-tazobacta 0-15 10-18 IV ity of m (ZOSYN) 21:30: 13:22 [place]back, [place] 3.375 g in 00 :44 Q6H ABX, Medic al NaCl 0.9% First dose Bran ch (NS) 100 mL (after MINI-BAG last modificati on) on Sun02/25/21 at 1630, Until Discontinu ed, Administer over 30 Minutes, 100 mL
Reas on for Anti-Infec tive: Documented Infection< br>Documen cholo Infection Site: Abdominal< br>Duratio n of Therapy: Other (see Comments) D5W 0.45% 2020-05- No IV Univers NaCl 0-15 10-18 Infusion, ity of (1/2NS) 1 L 21:15: 13:15 at 125 [place] as + KCL 20 00 :18 mL/hr, Medical mEq CONTINUOUS Branch , Starting on Sun02/25/21 at 1615, Until Sun02/28/21 at 0815, Routine ASPIRIN/MAHESH 2020-05- No Take by Shaji stiles TAMINOPHEN/ 0-15 10-15 mouth. ity o f CAFFEINE 18:12: 00:00 [place] (EXCEDRIN 36 :00 Medical MIGRAINE Branch ORAL) FENTanyl PF 2020-05- No 100ug 100 mcg, Univers (SUBLIMAZE 0-15 10-15 Slow IV ity o f (PF)) 17:30: 16:24 Push, [place] injection 00 :00 ONCE, 1 Medical 100 mcg dose, On Branch 02/25/21 at 1230, STAT iopamidol 2020-05- No [id number] 120mL 120 mL, Univers (ISOVUE 0-15 10-15 Intravenou ity o f 370-500 mL) 17:00: 15:46 s, ONCE, 1 [place] injection 00 :00 dose, On Medica l 120 mL Fri Branch 02/25/21 at 1200, Routine piperacilli 2020-05- No 3.375g 3.375 g, Univers n-tazobacta 0-15 10-15 IV ity of m (ZOSYN) 16:30: 16:00 [place]back, [place] 3.375 g in 00 :00 ONCE, 1 Medica l NaCl 0.9% dose, On Branch (NS) 100 mL Fri MINI-BAG 02/25/21 at 1130, Administer over 30 Minutes, 100 mL
Reas on for Anti-Infec tive: Documented Infection< br>Documen cholo Infection Site: Abdominal& lt;br>Dura tion of Therapy: Other (see Comments) ondansetron 2020-05- No 4mg 4 mg, Slow Univers (ZOFRAN 0-15 10-15 IV Push, ity of (PF)) 15:45: 14:40 ONCE, 1 [place] injection 4 00 :00 dose, On Medi keith mg Fri Branch 02/25/21 at 1045, CARROL FENTanyl PF 2020-05- No 75ug 75 mcg, Un luís (SUBLIMAZE 0-15 10-15 Slow IV ity o f (PF)) 15:45: 14:41 Push, [place] injection 00 :00 ONCE, 1 Medical 75 mcg dose, On Branch 02/25/21 at 1045, STAT NaCl 0.9% 2020-05- No 1000mL at 999 Uni vers (NS) bolus 0-15 10-15 mL/hr, ity of infusion 15:45: 14:39 1,000 mL, Feng as 1,000 mL 00 :00 IV Medical Infusion, Branch ONCE, 1 dose, On 02/25/21 at 1045, CARROL ASPIRIN/MAHESH 2014- Yes Take by Un luís TAMINOPHEN/ 6-10 mouth. ity of CAFFEINE 09:33: [place] (EXCEDRIN 23 Medical MIGRAINE Branch ORAL) Immunizations Ordered Filled Immunization Date Status Comments [facility] e Immunization Name Name [facility] 2014-10-21 Completed University 00:00:00 [facility] TDAP 2014-10-21 Completed [facility] Com[facility] 00:00:00 [facility] Vital Signs Vital Name Observation Time Observation Value Comments Source Systolic blood 2021-02-28 13:14:00 129 mm[Hg] Univer sity of pressure [facility] Diastolic blood 2021-02-28 13:14:00 84 mm[Hg] Unive rsity of pressure [facility] Heart rate 2021-02-28 13:14:00 85 /min [facility] Body temperature 2021-02-28 13:14:00 36.06 [facility] 2021-02-28 13:14:00 18 /min [facility] Oxygen saturation in 2021-02-28 13:14:00 98 /min [facility] Arterial blood by [place] Medi keith Pulse oximetry Branch Body height 2021-02-25 19:38:00 154.9 cm [facility] Body weight 2021-02-25 19:38:00 114.488 kg [facility] BMI 2021-02-25 19:38:00 47.69 kg/m2 [facility] Procedures Procedure Date / Time Performing Clinician Source Performed BASIC METABOLIC PANEL 2021-02-28 09:15:00 [facility] ([facility], K, CL, CO2, GLUCOSE, Medica l Branch BUN, CREATININE, CA) CBC WITH DIFF 2021-02-28 09:15:00 Corrine [facility] COMP. METABOLIC PANEL 2021-02-27 09:01:00 Manpreet [facility] ([id number]) [facility] Branch CBC WITH DIFF 2021-02-27 09:01:00 Katherine [facility] PHOSPHORUS 2021-02-26 11:56:00 Roque [facility] MAGNESIUM 2021-02-26 11:56:00 Roque [facility] BASIC METABOLIC PANEL 2021-02-26 11:56:00 Roque [facility] (NA, K, CL, CO2, GLUCOSE, Medica l Branch BUN, CREATININE, CA) CBC WITH DIFF 2021-02-26 11:55:00 Roque [facility] CT ABDOMEN PELVIS W 2021-02-25 15:55:32 Fuad Love [facility] CONTRAST [facility] BLOOD CULTURE SCREEN 2021-02-25 15:29:00 Fuad Love [facility] LACTIC ACID WHOLE BLOOD 2021-02-25 15:29:00 Fuad Love [facility] BLOOD CULTURE SCREEN 2021-02-25 15:14:00 Fuad Love [facility] COVID-19 (ID NOW RAPID 2021-02-25 14:37:00 Fuad Love [facility] TESTING) Medical [place] LAB ONLY COVID 2021-02-25 14:37:00 Fuad Love [facility] INTERPRETATION [facility] CBC WITH DIFF 2021-02-25 14:36:00 Fuad Love [facility] PROTHROMBIN TIME / INR 2021-02-25 14:36:00 [facility] ACTIVATED PARTIAL 2021-02-25 14:36:00 Fuad Love [facility] THRMPLAS LIV [facility] URINALYSIS 2021-02-25 14:36:00 Fuad Love [facility] URINE CULTURE 2021-02-25 14:36:00 Fuad Love [facility] LIPASE 2021-02-25 14:36:00 Fuad Love [facility] COMP. METABOLIC PANEL 2021-02-25 14:36:00 Fuad Love [facility] ([id number]) [facility] POCT TEST 2021-02-25 14:35:00 Fuad Love [facility] NOTICE OF PRIVACY 2021-02-25 13:56:50 Doctor Yuliya [facility] PRACTICES [place] [facility] CONSENT/REFUSAL FOR 2021-02-25 13:55:56 Doctor Yuliya [facility] DIAGNOSIS AND TREATMENT [place] [facility] Encounters Start End Encounter Admission Attending Care Care Encounter Source Date/Time Date/Time Type Type Clinicians Facility Department ID 2021-03-01 2021-03-01 Transition Ammon Holly [id number] Univers 00:00:00 00:00:00 of Care Mona Hammer [id number] ity [id number] [id number] [facility] 403 Branch 2021-02-25 2021-02-28 Hospital Fuad Love [place] [id number] Univers 09:14:00 15:00:00 Encounter Miguel Mckeon [id number] ity [id number] [id number] [facility] 081 Branch 2021-02-25 2021-02-25 Emergency X RUST ERT [id number] Univers 08:56:00 08:56:00 ity [facility] 2021-02-25 2021-02-25 Orders Doctor MITCHELL [id number] Univers 00:00:00 00:00:00 Only TiffanissZAID gurrola [id number] ity of [place] [id number] Feng as [id number] Medi keith 009 Branch Results Test Description Test Time Test Comments Results Result Comments Source BASIC METABOLIC PANEL (NA, K, CL, CO2, GLUCOSE, BUN, 2021-02 12:17:07 CREATININE, CA) Test Item Value Reference Range Interpretation Comme nts NA (test code = 8370523946) 140 mmol/L 135-145 K (test code = 0153843625) 4.1 mmol/L 3.5-5.0 CL (test code = 2057765940) 110 mmol/L 98-108 H CO2 TOTAL (test code = 2405290355) 23 mmol/L 23-31 AGAP (test code = 4750455191) 2-16 BUN (test code = 0534455588) 2 mg/dL 7-23 L GLUCOSE (test code = 5319353144) 120 mg/dL 70-110 H CREATININE (test code = 0.52 mg/dL 0.50-1.04 0014191981) CALCIUM (test code = 7537524353) 9.2 mg/dL 8.6-10.6 eGFR (test code = 9156152589) mL/min/1.73m2 BRIAN (test code = BRIAN) Association of Glomerular Filtration Rate (GFR) and Staging of Kidney Disease* + +-------- + ------+| GFR (mL/min/1.73 m2) ?| With Kidney Damage ?| ?Without Kidney Damage+ +-- + +| ?>90 ?| ?Stage one ?| ? Normal ?+ +------- + -------+| ?60-89 ?| ?Stage two ?| ? Decreased GFR ? + +-------- + ------+| ?30-59 ?| ?Stage three ?| ? Stage three ? + +-------- + ------+| ?15-29 ?| ?Stage four ? | ? Stage four ?+ +------- + -------+| ?<15 (or dialysis) ? ?| ?Stage five ? | ? Stage five ?+ +------- + -------+ *Each stage assumes the associated GFR level has been in effect for at least three months. ?Stages 1 to 5, with or without kidney disease, indicate chronic kidney disease. Notes: Determination of stages one and two (with eGFR >59mL/min/1.73 m2) requires estimation of kidney damage for at least three months as defined by structural or functional abnormalities of the kidney, manifested by either:Pathological abnormalities or Markers of kidney damage (including abnormalities in the composition of the blood or urine or abnormalities in imaging tests). Lab Interpretation (test code = Abnormal 09607-8) [facility] WITH [id number] 11:24:33 Test Item Value Reference Range Interpretation Comments WBC (test code = See_Comment [Automated 6690-2) message] The sy stem which generated this result transmitted reference range : 4.30 - 11.10 10*3/?L. The reference range was not used to interpret this result as normal/abnormal . RBC (test code = See_Comment L [Automated 789-8) message] The sy stem which generated this result transmitted reference range : 3.93 - 5.25 10*6/?L. The reference range was not used to interpret this result as normal/abnormal . HGB (test code = 9.9 g/dL 11.6-15.0 L 718-7) HCT (test code = 31.1 % 35.7-45.2 L 4544-3) MCV (test code = 85.4 fL 80.6-95.5 787-2) MCH (test code = 27.2 pg 25.9-32.8 785-6) MCHC (test code = 31.8 g/dL 31.6-35.1 786-4) RDW-SD (test code = 44.0 fL 39.0-49.9 58365-7) RDW-CV (test code = 14.1 % 12.0-15.5 788-0) PLT (test code = See_Comment H [Automated 777-3) message] The sy stem which generated this result transmitted reference range : 166 - 358 10*3/ ?L. The reference r jalen was not used to interpret this result as normal/abnormal . MPV (test code = 10.1 fL 9.5-12.9 64376-8) NRBC/100 WBC (test See_Comment [Automat ed code = 5437764919) message] The system which generated this result transmitted reference range : 0.0 - 10.0 /100 WBCs. The refer ence range was not u sed to interpret th is result as normal/abnormal . NRBC x10^3 (test code <0.01 See_Comment [Auto mated = 4421191181) message] The s ystem which generated this result transmitted reference range : 10*3/?L. The reference range was not used to interpret this result as normal/abnormal . GRAN MAT (NEUT) % 64.2 % (test code = 770-8) IMM GRAN % (test code 0.30 % = 1355875869) LYMPH % (test code = 21.6 % 736-9) MONO % (test code = 10.1 % 5905-5) EOS % (test code = 3.2 % 713-8) BASO % (test code = 0.6 % 706-2) GRAN MAT x10^3(ANC) 4.45 10*3/uL 1.88-7.09 (test code = 7020551144) IMM GRAN x10^3 (test <0.03 0.00-0.06 code = 2945733811) LYMPH x10^3 (test code 1.50 10*3/uL 1.32-3.29 = 731-0) MONO x10^3 (test code 0.70 10*3/uL 0.33-0.92 = 742-7) EOS x10^3 (test code = 0.22 10*3/uL 0.03-0.39 711-2) BASO x10^3 (test code 0.04 10*3/uL 0.01-0.07 = 704-7) Lab Interpretation Abnormal (test code = 58561-2) [facility]6895[facility]20[facility]-27 10:03:46 Test Item Value Reference Range Interpretation Comments NA (test code = 139 mmol/L 135-145 5326497108) K (test code = 4.2 mmol/L 3.5-5.0 7172412615) CL (test code = 111 mmol/L 98-108 H 2997621357) CO2 TOTAL (test code = 23 mmol/L 23-31 9043258173) AGAP (test code = 2-16 5026319719) BUN (test code = 5 mg/dL 7-23 L 5539689334) GLUCOSE (test code = 106 mg/dL 70-110 1709976986) CREATININE (test code = 0.49 mg/dL 0.50-1.04 L 3029781683) TOTAL BILI (test code = 1.1 mg/dL 0.1-1.2 9452243131) CALCIUM (test code = 8.9 mg/dL 8.6-10.6 0640774509) T PROTEIN (test code = 6.3 g/dL 6.3-8.2 8474263501) ALBUMIN (test code = 3.3 g/dL 3.5-5.0 L 0501853666) ALK PHOS (test code = 84 U/L 34-122 5497656768) ALTv (test code = 14 U/L 5-35 1742-6) AST(SGOT) (test code = 21 U/L 13-40 4327161354) eGFR (test code = mL/min/1.73m2 4051663581) BRIAN (test code = BRIAN) Association of Glomerular Filtration Rate (GFR) and Staging of Kidney Disease* + --+ --+ ------+| GFR (mL/min/1.73 m2) ?| With Kidney Damage ?| ?Without Kidney Damage+ --------+ --------+ +| ?>90 ?| ?Stage one ?| ? Normal ?+ ---+ ---+ -------+| ?60-89 ?| ?Stage two ?| ? Decreased GFR ? + --+ --+ ------+| ?30-59 ?| ?Stage three ?| ? Stage three ? + --+ --+ ------+| ?15-29 ?| ?Stage four ? | ? Stage four ?+ ---+ ---+ -------+| ?<15 (or dialysis) ? ?| ?Stage five ? | ? Stage five ?+ ---+ ---+ -------+ *Each stage assumes the associated GFR level has been in effect for at least three months. ?Stages 1 to 5, with or without kidney disease, indicate chronic kidney disease. Notes: Determination of stages one and two (with eGFR >59mL/min/1.73 m2) requires estimation of kidney damage for at least three months as defined by structural or functional abnormalities of the kidney, manifested by either:Pathological abnormalities or Markers of kidney damage (including abnormalities in the composition of the blood or urine or abnormalities in imaging tests). Lab Interpretation Abnormal (test code = 40638-9) [facility] WITH [id number] 09:52:45 Test Item Value Reference Range Interpretation Comments WBC (test code = See_Comment [Automated 6690-2) message] The sy stem which generated this result transmitted reference range : 4.30 - 11.10 10*3/?L. The reference range was not used to interpret this result as normal/abnormal . RBC (test code = See_Comment L [Automated 789-8) message] The sy stem which generated this result transmitted reference range : 3.93 - 5.25 10*6/?L. The reference range was not used to interpret this result as normal/abnormal . HGB (test code = 9.4 g/dL 11.6-15.0 L 718-7) HCT (test code = 30.1 % 35.7-45.2 L 4544-3) MCV (test code = 86.2 fL 80.6-95.5 787-2) MCH (test code = 26.9 pg 25.9-32.8 785-6) MCHC (test code = 31.2 g/dL 31.6-35.1 L 786-4) RDW-SD (test code = 44.8 fL 39.0-49.9 21577-2) RDW-CV (test code = 14.5 % 12.0-15.5 788-0) PLT (test code = See_Comment [Automated 777-3) message] The sy stem which generated this result transmitted reference range : 166 - 358 10*3/ ?L. The reference r jalen was not used to interpret this result as normal/abnormal . MPV (test code = 10.9 fL 9.5-12.9 89594-1) NRBC/100 WBC (test See_Comment [Automat ed code = 8951841844) message] The system which generated this result transmitted reference range : 0.0 - 10.0 /100 WBCs. The refer ence range was not u sed to interpret th is result as normal/abnormal . NRBC x10^3 (test code <0.01 See_Comment [Auto mated = 6827037421) message] The s ystem which generated this result transmitted reference range : 10*3/?L. The reference range was not used to interpret this result as normal/abnormal . GRAN MAT (NEUT) % 67.2 % (test code = 770-8) IMM GRAN % (test code 0.20 % = 8583741630) LYMPH % (test code = 19.5 % 736-9) MONO % (test code = 10.2 % 5905-5) EOS % (test code = 2.4 % 713-8) BASO % (test code = 0.5 % 706-2) GRAN MAT x10^3(ANC) 5.49 10*3/uL 1.88-7.09 (test code = 6137221770) IMM GRAN x10^3 (test <0.03 0.00-0.06 code = 7619055292) LYMPH x10^3 (test code 1.59 10*3/uL 1.32-3.29 = 731-0) MONO x10^3 (test code 0.83 10*3/uL 0.33-0.92 = 742-7) EOS x10^3 (test code = 0.20 10*3/uL 0.03-0.39 711-2) BASO x10^3 (test code 0.04 10*3/uL 0.01-0.07 = 704-7) Lab Interpretation Abnormal (test code = 58170-0) [facility] METABOLIC PANEL (NA, K, CL, CO2, GLUCOSE, BUN, CREATININE, CA)2021-02-26 13:38:52 Test Item Value Reference Range Interpretation Comments NA (test code = 139 mmol/L 135-145 6881747589) K (test code = 3.9 mmol/L 3.5-5.0 3366249833) CL (test code = 109 mmol/L 98-108 H 4280097300) CO2 TOTAL (test code = 25 mmol/L 23-31 9857614537) AGAP (test code = 2-16 9109198906) BUN (test code = 6 mg/dL 7-23 L 5032951043) GLUCOSE (test code = 112 mg/dL 70-110 H 4330153885) CREATININE (test code = 0.53 mg/dL 0.50-1.04 6120753752) CALCIUM (test code = 8.7 mg/dL 8.6-10.6 6132902368) eGFR (test code = mL/min/1.73m2 2993348821) BRIAN (test code = BRIAN) Association of Glomerular Filtration Rate (GFR) and Staging of Kidney Disease* + --+ --+ ------+| GFR (mL/min/1.73 m2) ?| With Kidney Damage ?| ?Without Kidney Damage+ --------+ --------+ +| ?>90 ?| ?Stage one ?| ? Normal ?+ ---+ ---+ -------+| ?60-89 ?| ?Stage two ?| ? Decreased GFR ? + --+ --+ ------+| ?30-59 ?| ?Stage three ?| ? Stage three ? + --+ --+ ------+| ?15-29 ?| ?Stage four ? | ? Stage four ?+ ---+ ---+ -------+| ?<15 (or dialysis) ? ?| ?Stage five ? | ? Stage five ?+ ---+ ---+ -------+ *Each stage assumes the associated GFR level has been in effect for at least three months. ?Stages 1 to 5, with or without kidney disease, indicate chronic kidney disease. Notes: Determination of stages one and two (with eGFR >59mL/min/1.73 m2) requires estimation of kidney damage for at least three months as defined by structural or functional abnormalities of the kidney, manifested by either:Pathological abnormalities or Markers of kidney damage (including abnormalities in the composition of the blood or urine or abnormalities in imaging tests). Lab Interpretation Abnormal (test code = 59439-1) [facility] 13:38:52 Test Item Value Reference Range Interpretation Comments MAGNESIUM (test code = 4698557272) 2.0 mg/dL 1.7-2.4 Lab Interpretation (test code = Normal 10930-2) [facility] 13:38:26 Test Item Value Reference Range Interpretation Comments PHOSPHORUS (test code = 0287412442) 3.4 mg/dL 2.5-5.0 Lab Interpretation (test code = Normal 54492-1) [facility] WITH [id number] 12:44:41 Test Item Value Reference Range Interpretation Comments WBC (test code = See_Comment H [Automated 6690-2) message] The sy stem which generated this result transmitted reference range : 4.30 - 11.10 10*3/?L. The reference range was not used to interpret this result as normal/abnormal . RBC (test code = See_Comment L [Automated 789-8) message] The sy stem which generated this result transmitted reference range : 3.93 - 5.25 10*6/?L. The reference range was not used to interpret this result as normal/abnormal . HGB (test code = 9.7 g/dL 11.6-15.0 L 718-7) HCT (test code = 30.8 % 35.7-45.2 L 4544-3) MCV (test code = 86.0 fL 80.6-95.5 787-2) MCH (test code = 27.1 pg 25.9-32.8 785-6) MCHC (test code = 31.5 g/dL 31.6-35.1 L 786-4) RDW-SD (test code = 45.5 fL 39.0-49.9 32366-9) RDW-CV (test code = 14.6 % 12.0-15.5 788-0) PLT (test code = See_Comment [Automated 777-3) message] The sy stem which generated this result transmitted reference range : 166 - 358 10*3/ ?L. The reference r jalen was not used to interpret this result as normal/abnormal . MPV (test code = 10.4 fL 9.5-12.9 90742-0) NRBC/100 WBC (test See_Comment [Automat ed code = 3693983066) message] The system which generated this result transmitted reference range : 0.0 - 10.0 /100 WBCs. The refer ence range was not u sed to interpret th is result as normal/abnormal . NRBC x10^3 (test code <0.01 See_Comment [Auto mated = 5233231092) message] The s ystem which generated this result transmitted reference range : 10*3/?L. The reference range was not used to interpret this result as normal/abnormal . GRAN MAT (NEUT) % 77.3 % (test code = 770-8) IMM GRAN % (test code 0.30 % = 5001839029) LYMPH % (test code = 11.3 % 736-9) MONO % (test code = 10.0 % 5905-5) EOS % (test code = 0.8 % 713-8) BASO % (test code = 0.3 % 706-2) GRAN MAT x10^3(ANC) 8.99 10*3/uL 1.88-7.09 H (test code = 1697243740) IMM GRAN x10^3 (test 0.04 10*3/uL 0.00-0.06 code = 1674774932) LYMPH x10^3 (test code 1.31 10*3/uL 1.32-3.29 L = 731-0) MONO x10^3 (test code 1.16 10*3/uL 0.33-0.92 H = 742-7) EOS x10^3 (test code = 0.09 10*3/uL 0.03-0.39 711-2) BASO x10^3 (test code 0.04 10*3/uL 0.01-0.07 = 704-7) Lab Interpretation Abnormal (test code = 89921-3) [facility] WITH [id number] 15:19:47 Test Item Value Reference Range Interpretation Comments WBC (test code = See_Comment H [Automated 2090-2) message] The system which generated this result transmit cholo reference range : 4.30 - 11.10 10*3/?L. The reference range was not used to interpret this result as normal/abnormal . RBC (test code = See_Comment [Automated 893-8) message] The system which generated this result transmit cholo reference range : 3.93 - 5.25 10*6/?L. The reference range was not used to interpret this result as normal/abnormal . HGB (test code = 11.8 g/dL 11.6-15.0 718-7) HCT (test code = 36.0 % 35.7-45.2 4544-3) MCV (test code = 82.8 fL 80.6-95.5 787-2) MCH (test code = 27.1 pg 25.9-32.8 785-6) MCHC (test code = 32.8 g/dL 31.6-35.1 786-4) RDW-SD (test code = 42.9 fL 39.0-49.9 05617-4) RDW-CV (test code = 14.3 % 12.0-15.5 788-0) PLT (test code = See_Comment H [Automated 777-3) message] The system which generated this result transmit cholo reference range : 166 - 358 10*3/ ?L. The reference range was not u sed to interpret th is result as normal/abnormal . MPV (test code = 9.5 fL 9.5-12.9 86970-1) NRBC/100 WBC (test See_Comment [Automat ed code = 2907687127) message] The system which generated this result transmit cholo reference range : 0.0 - 10.0 /100 WBCs. The reference range was not used to interpret this result as normal/abnormal . NRBC x10^3 (test code <0.01 See_Comment [Auto mated = 1987001287) message] The system which generated this result transmit cholo reference range : 10*3/?L. The reference range was not used to interpret this result as normal/abnormal . GRAN MAT (NEUT) % 82.4 % (test code = 770-8) IMM GRAN % (test code 0.40 % = 4476417415) LYMPH % (test code = 8.7 % 736-9) MONO % (test code = 8.1 % 5905-5) EOS % (test code = 0.1 % 713-8) BASO % (test code = 0.3 % 706-2) GRAN MAT x10^3(ANC) 15.71 10*3/uL 1.88-7.09 H (test code = 5936634672) IMM GRAN x10^3 (test 0.08 10*3/uL 0.00-0.06 H code = 9461083382) LYMPH x10^3 (test code 1.66 10*3/uL 1.32-3.29 = 731-0) MONO x10^3 (test code 1.54 10*3/uL 0.33-0.92 H = 742-7) EOS x10^3 (test code = <0.03 0.03-0.39 L 711-2) BASO x10^3 (test code 0.06 10*3/uL 0.01-0.07 = 704-7) Lab Interpretation Abnormal (test code = 33599-1) [facility]. METABOLIC PANEL (70543)2021-02-25 15:12:40 Test Item Value Reference Range Interpretation Comments NA (test code = 138 mmol/L 135-145 4123250909) K (test code = 4.0 mmol/L 3.5-5.0 6094040490) CL (test code = 105 mmol/L 98-108 9023293222) CO2 TOTAL (test code = 23 mmol/L 23-31 2920594437) AGAP (test code = 2-16 9006207655) BUN (test code = 9 mg/dL 7-23 0034786538) GLUCOSE (test code = 143 mg/dL 70-110 H 2448806860) CREATININE (test code = 0.55 mg/dL 0.50-1.04 9722739386) TOTAL BILI (test code = 1.7 mg/dL 0.1-1.1 H 6708311576) CALCIUM (test code = 9.8 mg/dL 8.6-10.6 6832213748) T PROTEIN (test code = 7.8 g/dL 6.3-8.2 8110321762) ALBUMIN (test code = 4.4 g/dL 3.5-5.0 2794548635) ALK PHOS (test code = 86 U/L 34-122 0605240272) ALTv (test code = 18 U/L 5-35 1742-6) AST(SGOT) (test code = 20 U/L 13-40 3256799322) eGFR (test code = mL/min/1.73m2 8536257534) BRIAN (test code = BRIAN) Association of Glomerular Filtration Rate (GFR) and Staging of Kidney Disease* + --+ --+ ------+| GFR (mL/min/1.73 m2) ?| With Kidney Damage ?| ?Without Kidney Damage+ --------+ --------+ +| ?>90 ?| ?Stage one ?| ? Normal ?+ ---+ ---+ -------+| ?60-89 ?| ?Stage two ?| ? Decreased GFR ? + --+ --+ ------+| ?30-59 ?| ?Stage three ?| ? Stage three ? + --+ --+ ------+| ?15-29 ?| ?Stage four ? | ? Stage four ?+ ---+ ---+ -------+| ?<15 (or dialysis) ? ?| ?Stage five ? | ? Stage five ?+ ---+ ---+ -------+ *Each stage assumes the associated GFR level has been in effect for at least three months. ?Stages 1 to 5, with or without kidney disease, indicate chronic kidney disease. Notes: Determination of stages one and two (with eGFR >59mL/min/1.73 m2) requires estimation of kidney damage for at least three months as defined by structural or functional abnormalities of the kidney, manifested by either:Pathological abnormalities or Markers of kidney damage (including abnormalities in the composition of the blood or urine or abnormalities in imaging tests). Lab Interpretation Abnormal (test code = 20964-3) [facility] Test Item Value Reference Range Interpretation Comments LIPASE (test code = 9143966035) 102 U/L 0-220 Lab Interpretation (test code = Normal 43357-9) [facility] [id number] 14:56:54 Test Item Value Reference Range Interpretation Comments APTT Patient (test See_Comment [Automat ed code = 3173-2) message] The system which generated this result transmitted reference range : 23 - 38 Seconds . The reference range was not used to interpr et this result as normal/abnormal . BRIAN (test code = BRIAN) The RUST patient population mean normal value for aPTT is 30 seconds. Lab Interpretation Normal (test code = 08162-1) [facility] / [id number] 14:54:37 Test Item Value Reference Range Interpretation Comments PROTIME PATIENT (test See_Comment [Auto mated message] code = 5964-2) The system wh ich generated this result transmitted ref erence range: 12.0 - 1 4.7 Seconds. The re ference range was not u sed to interpret this result as normal/abnor mal. INR (test code = 6301-6) Nor mal INR <1.1; Warfarin Therap eutic range 2.0 to 3. 0 or 2.5 to 3.5, dep ending upon the indica tions. Lab Interpretation (test Normal code = 35804-6) [facility] [id number] 14:35:00 Test Item Value Reference Range Interpretation Comments POCT PREG (test code = 1605) negative On board controls acceptable with C present Line (test code = 3574) Lab Interpretation (test code = Normal 17163-0) [facility]"
[2021-04-03 11:39] LABS: Urine Blood Negative (Negative); Urine Glucose Negative (Negative); Urine Protein Negative (Negative)
[2021-04-03 12:00] LABS: Urine Bacteria NONE SEEN /HPF (<20); Urine RBC <5 /HPF (NONE SEEN)
[2021-04-03] MEDS ORDERED: NA CHLORIDE 0.9% 1,000 ML ONE ×2 (12:06→15:36)
[2021-04-03] MEDS ORDERED: MEPERIDINE HCL 25 MG/ML SYR ONE ×2 (12:06→14:39)
[2021-04-03] MEDS ORDERED: ONDANSETRON 4 MG/2 ML VIAL ONE ×2 (12:06→17:49)
[2021-04-03 12:12] LABS: Absolute Lymphocytes (CBC) 1.5 K/uL (0.7-4.9); Basophils % 0.3 % (0-1.3); Hematocrit 38.8 % (36.0-45.0); Lymphocytes % 8.6 % (15.3-44.8); MPV 7.7 fL (7.6-11.3); RBC Red Blood Cell Count 4.76 M/uL (3.86-4.86)
[2021-04-03 12:30] LABS: ALT/SGPT 24 U/L (12-78); AST/SGOT 16 U/L (15-37); Albumin 3.3 g/dL (3.4-5.0); Alkaline Phosphatase 90 U/L (45-117); BUN Blood Urea Nitrogen 8 mg/dL (7-18); Bicarbonate 21 mmol/L (21-32); Bilirubin Direct 0.1 mg/dL (0-0.2); Bilirubin Total 0.6 mg/dL (0.2-1.0); Glucose Level 107 mg/dL (74-106); Lipase 101 U/L (73-393); Potassium 3.6 mmol/L (3.5-5.1); Protein, Total 7.7 g/dL (6.4-8.2); Sodium Level 138 mmol/L (136-145)
--- NOTE | 2021-04-03 12:54 | RAD REPORT ---
EXAM DESCRIPTION: CT - Abdomen Pelvis W Contrast - 04/03/2021 12:17 pm CLINICAL HISTORY: LLQ abd pain, recurrent diverticulitis, microperf ;Abd pain COMPARISON: Abdomen Pelvis W Contrast dated 05/08/2020 TECHNIQUE: Biphasic, helical CT imaging of the abdomen and pelvis was performed following 100 ml non -ionic IV contrast. No oral contrast administered. All CT scans are performed using dose optimization technique as appropriate and may include automated exposure control or mA/KV adjustment according to patient size. FINDINGS: No suspicious findings in the lung bases. The liver, spleen, and pancreas show no suspicious findings. Liver is borderline fatty infiltrated . No gallbladder or biliary tree abnormality. Symmetric renal function is seen with no hydronephrosis or suspicious renal mass. No pyelonephritis o r acute parenchymal process. Contracted bladder shows no gross abnormality. No adrenal abnormalities. Uterus and ovaries show no primary abnormality. No stomach or small bowel abnormality. Appendix is normal. Colon from cecum to splenic flexure shows no acute findings. There is mild wall thickening along the descending colon with trace amount of stra nding in the adjacent fat. Patient has a 12 centimeter long segment of sigmoid colon showing prominen t circumferential wall thickening with edema and stranding in the adjacent fat. Stranding abuts the a nterior margin of the left ovary and there could be secondary involvement by the inflammatory process with the left ovary. No fallopian tube dilatation. Two punctate air densities are present outside of the lumen of the colon position between colon and left ovary. No abscess is identified. No distant f ree air. No bowel pneumatosis identified. Patient has a few sigmoid diverticula present. Acute diver ticulitis is favored over a nonspecific colitis. No hernia, mass or bulky lymphadenopathy. No suspicious bony findings. IMPRESSION: Mildly prominent acute sigmoid diverticulitis with 2 punctate air densities in the extra luminal fat between the involved colon and the left ovary. No abscess or drainable fluid collections seen. No distant free air or other surgically emergent find ing. There is significant stranding in the surrounding fatty tissues with the inflammatory stranding abutt ing the anterior margin of the left ovary.
--- NOTE | 2021-04-03 13:12 | EDPHYS ---
Physician Documentation [facility] Name: Sahmika Sam Age: 31 yrs Sex: Female : 1990 Arrival Date: 04/03/2021 Time: 11:10 Bed 23 Private MD: ED Physician Juve Raymundo HPI: 04/03 11:38 This 31 yrs old Female presents to ER via Ambulatory with complaints of rn Abdominal Pain. 11:38 The patient presents with abdominal pain in the left lower quadrant. rn 11:38 Onset: The symptoms/episode began/occurred last night. The symptoms do not radiate. rn Associated signs and symptoms: Pertinent positives: constipation, nausea, Pertinent negatives: blood in stools, fever. The symptoms are described as sharp, stabbing. Modifying factors: The symptoms are alleviated by nothing, the symptoms are aggravated by movement, touching the area. Severity of pain: At its worst the pain was moderate in the emergency department the pain is unchanged. The patient has experienced similar episodes in the past. The patient has been recently seen by a physician:. Patient reports left lower quadrant abdominal pain that began last night. Reports recent admission a month ago at [facility] for perforated diverticulitis that was not operated on. No current antibiotics or medication. No history of inflammatory bowel disease. States has had 3 or 4 episodes of diverticulitis in the past and this feels similar. No fever. No blood in stool. No trauma.. 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 - Social history:: Smoking status: Patient denies any tobacco usage or history of. - Family history:: not pertinent. - Hospitalizations: : Patient was recently seen at. ROS: 11:38 Constitutional: Negative for fever, chills, and weight loss, Eyes: Negative for injury, rn pain, redness, and discharge, Neck: Negative for injury, pain, and swelling, Cardiovascular: Negative for chest pain, palpitations, and edema, Respiratory: Negative for shortness of breath, cough, wheezing, and pleuritic chest pain, Abdomen/GI: Positive for abdominal pain and nausea Back: Negative for injury and pain, : Negative for injury, bleeding, discharge, and swelling, MS/Extremity: Negative for injury and deformity, Skin: Negative for injury, rash, and discoloration, Neuro: Negative for headache, weakness, numbness, tingling, and seizure. Exam: 11:38 Constitutional: This is a well developed, well nourished patient who is awake, alert, rn appears uncomfortable Head/Face: Normocephalic, atraumatic. Eyes: Periorbital areas with no swelling, redness, or edema. Cardiovascular: Tachycardic, regular. No pulse deficits. Respiratory: No increased work of breathing, no retractions or nasal flaring. Abdomen/GI: Soft, mild left lower quadrant tenderness. No rebound. Skin: Warm, dry MS/ Extremity: Pulses equal, no cyanosis. Neuro: Awake and alert, GCS 15 Vital Signs: 11:19 BP 131 / 83; Pulse 115; Resp 18; Temp 98.8(O); Pulse Ox 100% ; Weight 113.4 kg; Height vg1 5 ft. 1 in. (154.94 cm); Pain 8/10; 12:58 BP 140 / 88; Pulse 65; Resp 18 S; Pulse Ox 97% on R/A; as6 14:44 BP 145 / 85; Pulse 100; Resp 18 S; Pulse Ox 99% on R/A; as6 11:19 Body Mass Index 47.24 (113.40 kg, 154.94 cm) vg1 MDM: 11:24 Patient medically screened. rn 13:08 Differential diagnosis: bowel obstruction, diverticulitis, Endometriosis, non-specific rn abd pain, Ureterolithiasis, urinary tract infection. Data reviewed: vital signs, nurses notes, lab test result(s), radiologic studies, CT scan, and as a result, I will admit patient. Counseling: I had a detailed discussion with the patient and/or guardian regarding: the historical points, exam findings, and any diagnostic results supporting the discharge/admit diagnosis, lab results, radiology results, the need for further work-up and treatment in the hospital. Response to treatment: the patient's symptoms have mildly improved after treatment, and as a result, I will admit patient. Admission orders: after a detailed discussion of the patient's condition and case, the admit orders are written by me. ED course: Consulted with Dr. Hartman, will admit to hospitalist service under Dr. Hubbard with IV antibiotics and surgical consult. No free fluid or abscess, not likely surgical at this point.. 04/03 11:29 Order name: Basic Metabolic Panel rn 04/03 11:29 Order name: CBC with Diff; Complete Time: 13: rn 04/03 11:29 Order name: Hepatic Function; Complete Time: 13: rn 04/03 11:29 Order name: Lipase; Complete Time: 13: rn 04/03 11:29 Order name: Urine Microscopic Only; Complete Time: 13: rn 04/03 11:29 Order name: Basic Metabolic Panel; Complete Time: 13: EDNY 04/03 11:40 Order name: Urine Dipstick-Ancillary; Complete Time: 13: EDNY 04/03 11:41 Order name: Urine --Ancillary (enter results); Complete Time: 13: bd 04/03 14:36 Order name: SARS-COV-2 RT PCR EDNY 04/03 14:48 Order name: Comprehensive Metabolic Panel EDNY 04/03 14:48 Order name: Comprehensive Metabolic Panel EDNY 04/03 14:49 Order name: CBC with Automated Diff EDNY 04/03 14:49 Order name: CBC with Automated Diff EDNY 04/03 11:37 Order name: CT Abd/Pelvis - IV Contrast Only; Complete Time: 13: rn 04/03 14:49 Order name: CONS Physician Consult EDNY 04/03 14:49 Order name: Lactate EDNY 04/03 14:49 Order name: Lactate EDMS 04/03 14:49 Order name: Magnesium EDMS 04/03 14:49 Order name: Magnesium EDMS 04/03 14:49 Order name: NT PRO-BNP EDNY 04/03 14:49 Order name: NT PRO-BNP EDNY 04/03 14:49 Order name: Phosphorus EDMS 04/03 14:49 Order name: Phosphorus EDMS 04/03 14:49 Order name: Urinalysis EDNY 04/03 11:29 Order name: IV Saline Lock; Complete Time: 11:59 rn 04/03 11:29 Order name: Labs collected and sent; Complete Time: 11:59 rn 04/03 11:29 Order name: Urine Dipstick-Ancillary (obtain specimen); Complete Time: 11:41 rn 04/03 11:29 Order name: Urine Test (obtain specimen); Complete Time: 11:41 rn 04/03 14:49 Order name: Heart Healthy EDMS Administered Medications: 12:34 Drug: Zofran (Ondansetron) 4 mg Route: IVP; Site: right antecubital; jd3 13:34 Follow up: Response: No adverse reaction as6 12:34 Drug: NS 0.9% 1000 ml Route: IV; Rate: 1000 ml; Site: right antecubital; jd3 13:34 Follow up: Response: No adverse reaction; IV Status: Completed infusion; IV Intake: as6 1000ml 12:35 Drug: Demerol (meperidine) 25 mg Route: IVP; Site: right antecubital; jd3 13:34 Follow up: Response: No adverse reaction; RASS: Alert and Calm (0) as6 13:24 Drug: Zosyn (piperacillin-tazobactam) 3.375 grams Route: IVPB; Infused Over: 60 mins; as6 Site: right forearm; 14:13 Follow up: Response: No adverse reaction; IV Status: Completed infusion; IV Intake: as6 100ml 14:44 Drug: Demerol (meperidine) 25 mg Route: IVP; Site: right forearm; as6 14:45 Follow up: Response: No adverse reaction; RASS: Alert and Calm (0) as6 Disposition Summary: 04/03/21 13:11 Hospitalization Ordered Hospitalization Status: Inpatient Admission rn Provider: Felipa Hubbard rn Condition: Stable rn Problem: new rn Symptoms: have improved rn Bed/Room Type: Standard rn Location: Telemetry/MedSurg (Inpatient)(04/03/21 18:51) dw Room Assignment: 223(04/03/21 18:51) dw Diagnosis - Acute diverticulitis with perforation, no abscess rn Forms: - Medication Reconciliation Form rn - SBAR form rn Signatures: Dispatcher [employer] EDRomina Fields RN Juve Callejas MD MD rn Calderon, Audri, RN RN [email or web address] Alon Ivory RN RN Charlotte Kilpatrick, RN RN [email or web address] Gonzalo Pino RN RN as6 Corrections: (The following items were deleted from the chart) 14:36 14:15 CORONAVIRUS+ ordered. EDMS EDMS 15:45 13:11 Telemetry/MedSurg (Inpatient) rn aa5 15:45 13:11 rn aa5 18:51 15:[address] [facility] ER HOLD aa5 dw 18:51 15:45 ERHOLD- aa5 dw
--- NOTE | 2021-04-03 13:12 | ER ---
Nurse's Notes [facility] Name: Shamika Sam Age: 31 yrs Sex: Female : 1990 Arrival Date: 04/03/2021 Time: 11:10 Bed 23 Private MD: Diagnosis: Acute diverticulitis with perforation, no abscess Presentation: 04/03 11:19 Chief complaint: Patient states: Lower ABD pain began last night, states pain is vg1 pressure and at times sharp pain. States nausea and diarrhea, denies vomiting. Also states urine frequency. Coronavirus screen: Vaccine status: Patient reports being unvaccinated. Client denies travel out of the [place] in the last 14 days. Ebola Screen: Patient negative for fever greater than or equal to 101.5 degrees Fahrenheit, and additional compatible Ebola Virus Disease symptoms. Initial Sepsis Screen: Does the patient meet any 2 criteria? HR > 90 bpm. Yes Does the patient have a suspected source of infection? No. Patient's initial sepsis screen is negative. Risk Assessment: Do you want to hurt yourself or someone else? Patient reports no desire to harm self or others. Onset of symptoms was April 02, 2021. 11:19 Method Of Arrival: Ambulatory vg1 11:19 Acuity: JEANNETTE 3 vg1 Triage Assessment: 11:22 General: Appears in no apparent distress. uncomfortable, Behavior is calm, cooperative, vg1 crying. Pain: Complains of pain in right lower quadrant and left lower quadrant Pain currently is 8 out of 10 on a pain scale. Pain began 1 day ago. Also complains of nausea. GI: Abdomen is round non-distended, obese, Reports diarrhea, nausea. 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 - Social history:: Smoking status: Patient denies any tobacco usage or history of. - Family history:: not pertinent. - Hospitalizations: : Patient was recently seen at. Screenin:02 Abuse screen: Denies threats or abuse. Nutritional screening: No deficits noted. as6 Tuberculosis screening: No symptoms or risk factors identified. Fall Risk None identified. Assessment: 12:00 General: Appears in no apparent distress. uncomfortable, Behavior is calm, cooperative. as6 Pain: Complains of pain in left lower quadrant. Neuro: Level of Consciousness is awake, alert, obeys commands, Oriented to person, place, time, situation. Cardiovascular: Capillary refill < 3 seconds Patient's skin is warm and dry. Respiratory: Airway is patent Trachea midline Respiratory effort is even, unlabored, Respiratory pattern is regular, symmetrical. GI: Abdomen is tender to palpation in left lower quadrant Reports lower abdominal pain, diarrhea, nausea. : Reports urinary frequency. Derm: Skin is intact, is healthy with good turgor. 13:06 Reassessment: Patient and/or family updated on plan of care and expected duration. Pain as6 level reassessed. Patient is alert, oriented x 3, equal unlabored respirations, skin warm/dry/pink. Vital Signs: 11:19 BP 131 / 83; Pulse 115; Resp 18; Temp 98.8(O); Pulse Ox 100% ; Weight 113.4 kg; Height vg1 5 ft. 1 in. (154.94 cm); Pain 8/10; 12:58 BP 140 / 88; Pulse 65; Resp 18 S; Pulse Ox 97% on R/A; as6 14:44 BP 145 / 85; Pulse 100; Resp 18 S; Pulse Ox 99% on R/A; as6 11:19 Body Mass Index 47.24 (113.40 kg, 154.94 cm) vg1 ED Course: 11:10 Patient arrived in ED. mr 11:22 Triage completed. vg1 11:22 Arm band placed on. vg1 11:24 Juve Raymundo MD is Attending Physician. rn 11:30 Gonzalo Pino RN is Primary Nurse. as6 12:01 Inserted saline lock: 22 gauge in right forearm, using aseptic technique. Blood as6 collected. Missed attempt(s): 22 gauge in left antecubital area. Bleeding controlled, band aid applied, catheter tip intact. 12:02 Placed in gown. Bed in low position. Call light in reach. Side rails up X2. Adult w/ as6 patient. Pulse ox on. NIBP on. 12:18 CT Abd/Pelvis - IV Contrast Only In Process Unspecified. EDMS 13:10 Felipa Hubbard MD is Hospitalizing Provider. rn Administered Medications: 12:34 Drug: Zofran (Ondansetron) 4 mg Route: IVP; Site: right antecubital; jd3 13:34 Follow up: Response: No adverse reaction as6 12:34 Drug: NS 0.9% 1000 ml Route: IV; Rate: 1000 ml; Site: right antecubital; jd3 13:34 Follow up: Response: No adverse reaction; IV Status: Completed infusion; IV Intake: as6 1000ml 12:35 Drug: Demerol (meperidine) 25 mg Route: IVP; Site: right antecubital; jd3 13:34 Follow up: Response: No adverse reaction; RASS: Alert and Calm (0) as6 13:24 Drug: Zosyn (piperacillin-tazobactam) 3.375 grams Route: IVPB; Infused Over: 60 mins; as6 Site: right forearm; 14:13 Follow up: Response: No adverse reaction; IV Status: Completed infusion; IV Intake: as6 100ml 14:44 Drug: Demerol (meperidine) 25 mg Route: IVP; Site: right forearm; as6 14:45 Follow up: Response: No adverse reaction; RASS: Alert and Calm (0) as6 Intake: 13:34 IV: 1000ml; Total: 1000ml. as6 14:13 IV: 100ml; Total: 1100ml. as6 Outcome: 13:11 Decision to Hospitalize by Provider. rn 20:09 Patient left the ED. lp1 Signatures: Dispatcher [employer] EDVA Olena Silveira Roman, MD MD rn Pena, Laura, RN RN lp1 Alon Ivory RN RN Charlotte Kilpatrick RN RN vg1 Gonzalo Pino RN RN as6
[2021-04-03] MEDS ORDERED: PIPERACIL/TAZO 3.375 GM VIAL IV ONE (13:13)
[2021-04-03] MEDS ORDERED: NA CHLORIDE 0.9% 100 ML ONE (13:13)
[2021-04-03] MEDS ORDERED: MEPERIDINE HCL 50 MG/ML IV PRN (14:44)
[2021-04-03] MEDS ORDERED: ZOLPIDEM TARTRATE 5 MG TABLET PO PRN (14:44)
[2021-04-03 15:14] VITALS: BMI 47.2
[2021-04-03] MEDS: Levofloxacin500mg IV 500 MG/100 ML BAG IV SCH (15:54)
[2021-04-03] MEDS: NA CHLORIDE 0.9% 1,000 ML IV SCH ×2 (15:55→21:02)
[2021-04-03] MEDS: METRONIDAZOLE 500mg IVPB 500 MG/100 ML BAG IV SCH (16:53)
--- NOTE | 2021-04-03 17:47 | P.HP ---
Certification for Inpatient Patient admitted to: Inpatient With expected LOS: >2 Midnights Patient will require the following post-hospital care: None Practitioner: I am a practitioner with admitting privileges, knowledge of patient current condition, hospital course, and medical plan of care. Services: Services provided to patient in accordance with Admission requirements found in Title 42 Section 412.3 of the Code of Federal Regulations Patient History Date of Service: 04/03/21 Reason for admission: Diverticulitis with microperforation History of Present Illness: Patient is a 31-year-old female came to the hospital with abdominal pain. She has a diagnosis of diverticulitis about a year ago. She never followed up for colonoscopy. About a month ago she had a an acute flare up. She went to [facility]. While she was there she had been started on antibiotics. Patient was in the hospital for about a week. She was discharged on oral antibiotics. She was feeling better but her symptoms worsened once again so she came back into our hospital for further evaluation. Patient had a CT performed once again which showed microperforation. Patient be admitted to the hospital for IV antibiotic therapy. We will get General surgery consultation as well. Allergies No Known Allergies Allergy (Verified 04/03/21 15:08) Home Medications: Dicyclomine [Bentyl] 20 mg PO TID 04/03/21 - Past Medical/Surgical History Has patient received pneumonia vaccine in the past: No Diabetic: No -: Diverticulitis -: Irregular menstrual cycle -: Umbilical hernia -: umbilical hernia repaired - Family History Father Family History: Reviewed- Non-Contributory - Social History Smoking Status: Never smoker Alcohol use: Yes CD- Drugs: No Caffeine use: No Place of Residence: Home Review of Systems 10-point ROS is otherwise unremarkable Physical Examination - Vital Signs Temperature: 99 F Blood Pressure: 110/80 Pulse: 101 Respirations: 22 Pulse Ox (%): 98 - Physical Exam General: Alert, In no apparent distress, Oriented x3 HEENT: Atraumatic, PERRLA, Mucous membr. moist/pink, EOMI, Sclerae nonicteric Neck: Supple, 2+ carotid pulse no bruit, No LAD, Without JVD or thyroid abnormality Respiratory: Clear to auscultation bilaterally, Normal air movement Cardiovascular: Regular rate/rhythm, Normal S1 S2 Gastrointestinal: Normal bowel sounds, Soft and benign, Non-distended, Tendern ess, Rebound Musculoskeletal: No clubbing, No swelling, No tenderness Integumentary: No rashes Neurological: Normal gait, Normal speech, Normal strength at 5/5 x4 extr, Normal tone, Sensation intact, Cranial nerves 3-12 intact, Normal affect Lymphatics: No axilla or inguinal lymphadenopathy - Studies Laboratory Data (last 24 hrs) 04/03/21 11:56: WBC 17.60 H, Hgb 12.6, Hct 38.8, Plt Count 386 04/03/21 11:56: Sodium 138, Potassium 3.6, BUN 8, Creatinine 0.71, Glucose 107 H, Total Bilirubin 0.6, AST 16, ALT 24, Alkaline Phosphatase 90, Lipase 101 Assessment & Plan - Problems (Diagnosis) (1) Diverticulitis of colon with perforation Current Visit: Yes Status: Acute - Plan 1. Continue with IV hydration 2. Continue with IV antibiotics 3. Continue with pain control 4. NPO 5. General surgery consultation; outpatient colonoscopy in 6-12 weeks 6. Serial H&H, and we will monitor CBC, BMP, LFTs and lipase along with electrolytes. 7. GI and DVT prophylaxis Discharge Plan: Home Plan to discharge in: Greater than 2 days - Advance Directives Does patient have a Living Will: No Does patient have a Durable POA for Healthcare: No - Code Status/Comfort Care Code Status Assessed: Yes Code Status: Full Code Critical Care: No Time Spent Managing PTS Care (In Minutes): 45
[2021-04-03] MEDS ORDERED: ACETAMINOPHEN 500 MG TAB ONE (17:49)
[2021-04-03] MEDS: ACETAMINOPHEN 500 MG TAB PO PRN (17:51)
[2021-04-03] MEDS: ONDANSETRON 4 MG/2 ML VIAL IV PRN (17:51)
[2021-04-04] MEDS: METRONIDAZOLE 500mg IVPB 500 MG/100 ML BAG IV SCH ×3 (00:27→16:49)
[2021-04-04] MEDS: ACETAMINOPHEN 500 MG TAB PO PRN (01:53)
[2021-04-04 05:55] LABS: Absolute Lymphocytes (CBC) 1.7 K/uL (0.7-4.9); Basophils % 0.3 % (0-1.3); Hematocrit 32.4 % (36.0-45.0); Lymphocytes % 15.4 % (15.3-44.8); MPV 7.8 fL (7.6-11.3); RBC Red Blood Cell Count 3.95 M/uL (3.86-4.86)
--- NOTE | 2021-04-04 06:12 | P.PN ---
Subjective Date of Service: 04/04/21 Chief Complaint: Diverticulitis with microperforation Subjective: Improving, Other (No further nausea, vomiting or abdominal pain.) Physical Examination - Vital Signs Temperature: 97.9 F Blood Pressure: 111/59 Pulse: 95 Respirations: 19 Pulse Ox (%): 98 - Studies Laboratory Data (last 24 hrs) 04/03/21 11:56: WBC 17.60 H, Hgb 12.6, Hct 38.8, Plt Count 386 04/03/21 11:56: Sodium 138, Potassium 3.6, BUN 8, Creatinine 0.71, Glucose 107 H, Total Bilirubin 0.6, AST 16, ALT 24, Alkaline Phosphatase 90, Lipase 101 Assessment & Plan Discharge Plan: Home Plan to discharge in: 72 Hours Physician Review Additional Text: COVID: negative CT scan: COMPARISON: Abdomen Pelvis W Contrast dated 05/08/2020 TECHNIQUE: Biphasic, helical CT imaging of the abdomen and pelvis was performed following 100 ml non-ionic IV contrast. No oral contrast administered. All CT scans are performed using dose optimization technique as appropriate and may include automated exposure control or mA/KV adjustment according to patient size. FINDINGS: No suspicious findings in the lung bases. The liver, spleen, and pancreas show no suspicious findings. Liver is borderline fatty infiltrated . No gallbladder or biliary tree abnormality. Symmetric renal function is seen with no hydronephrosis or suspicious renal mass. No pyelonephritis or acute parenchymal process. Contracted bladder shows no gross abnormality. No adrenal abnormalities. Uterus and ovaries show no primary abnormality. No stomach or small bowel abnormality. Appendix is normal. Colon from cecum to splenic flexure shows no acute findings. There is mild wall thickening along the descending colon with trace amount of stranding in the adjacent fat. Patient has a 12 centimeter long segment of sigmoid colon showing prominent circumferential wall thickening with edema and stranding in the adjacent fat. Stranding abuts t he anterior margin of the left ovary and there could be secondary involvement by the inflammatory process with the left ovary. No fallopian tube dilatation. Two punctate air densities are present outside of the lumen of the colon position between colon and left ovary. No abscess is identified. No distant free air. No bowel pneumatosis identified. Patient has a few sigmoid diverticula present. Acu te diverticulitis is favored over a nonspecific colitis. No hernia, mass or bulky lymphadenopathy. No suspicious bony findings. IMPRESSION: Mildly prominent acute sigmoid diverticulitis with 2 punctate air densities in the extraluminal fat between the involved colon and the left ovary. No abscess or drainable fluid collections seen. No distant free air or other surgically emergent finding. There is significant stranding in the surrounding fatty tissues with the inflammatory stranding abutting the anterior margin of the left ovary. Physical exam: General: Alert, In no apparent distress, Oriented x3 HEENT: Neck supple Respiratory: Clear to auscultation bilaterally, Normal air movement Cardiovascular: Regular rate/rhythm, Normal S1 S2 Gastrointestinal: Normal bowel sounds, Soft and benign, Non-distended, no significant pain to the left lower quadrant Musculoskeletal: No clubbing, No swelling, No tenderness Integumentary: No rashes Neurological: Normal gait, Normal speech, Normal strength at 5/5 x4 extr, Normal tone, Sensation intact, Cranial nerves 3-12 intact, Normal affect Lymphatics: No axilla or inguinal lymphadenopathy Impression: Acute sigmoid diverticulitis with perforation in the extraluminal fat between the colon and left ovary Plan: Patient has done well. No significant pain today. No nausea or vomiting. Continue with IV antibiotic therapy-Levaquin/Flagyl, IV fluids and IV pain medication. Will check KUB today. Await recommendations by surgery. Likely no need for surgical intervention. Anticipate possible clear liquids today if okay with surgery. Continue to monitor electrolytes closely. Electrolyte protocol in place. Patient will require outpatient colonoscopy in 6 to 8 weeks. Encourage ambulation. Provide incentive spirometer. Anticipate continued improvement over the next 72 hours. DVT prophylaxis: Lovenox CODE STATUS: Full code Advance care [id number] minutes: Home at discharge Time Spent Managing Pts Care (In Minutes): 55
[2021-04-04 06:20] LABS: ALT/SGPT 18 U/L (12-78); AST/SGOT 10 U/L (15-37); Albumin 2.8 g/dL (3.4-5.0); Alkaline Phosphatase 70 U/L (45-117); BUN Blood Urea Nitrogen 8 mg/dL (7-18); Bicarbonate 24 mmol/L (21-32); Bilirubin Total 0.8 mg/dL (0.2-1.0); Glucose Level 112 mg/dL (74-106); Magnesium 2.2 mg/dL (1.8-2.4); NT PRO-BNP 35 pg/mL (<125); Phosphorus 2.3 mg/dL (2.5-4.9); Potassium 3.2 mmol/L (3.5-5.1); Protein, Total 6.6 g/dL (6.4-8.2); Sodium Level 143 mmol/L (136-145)
[2021-04-04] MEDS: NA CHLORIDE 0.9% 1,000 ML IV SCH (06:55)
[2021-04-04] MEDS: ENOXAPARIN 40 MG/0.4 ML SQ SCH (09:00)
[2021-04-04] MEDS: D5 0.45 NS 1,000 ML IV SCH ×2 (10:08→20:30)
[2021-04-04 10:14] LABS: Urine Appearance SL CLOUDY (Clear); Urine Bilirubin NEGATIVE (Negative); Urine Blood NEGATIVE (Negative); Urine Color YELLOW (Yellow); Urine Glucose NEGATIVE (Negative); Urine Microscopic Reflex ORDER UMIC; Urine Protein NEGATIVE (Negative); Urine Specific Gravity >1.030 (1.005-1.030); Urine Urobilinogen 0.2 mg/dL (0.2-1.0)
[2021-04-04 10:38] LABS: Urine Bacteria NONE SEEN /HPF (<20); Urine RBC <5 /HPF (NONE SEEN); Urine Yeast FEW (NONE SEEN)
--- NOTE | 2021-04-04 10:52 | RAD REPORT ---
EXAM DESCRIPTION: RAD - Abdomen 1 View (KUB) - 04/04/2021 10:24 am CLINICAL HISTORY: follow up perforated diverticulitis Pain COMPARISON: No comparisons FINDINGS: The bowel gas pattern is non-obstructive. No evidence of free air or pneumatosis. No suspi cious calcifications. No significant bony findings. IMPRESSION: Negative examination.
--- NOTE | 2021-04-04 14:33 | P.CNS ---
Date of Consult: 04/04/21 PC: I was asked to see this 31-year-old female in regards to her left lower quadrant abdominal pain HPC: Patient has had previous episodes of diverticulitis. She has had 2 in the last year. At this point she realized what was starting to go on that she was having pain in the left lower quadrant it was increasing in intensity and she came to the ER for evaluation and treatment. PSHx: Negative PMHx: Negative Social Hx: No known allergies, does not drink alcohol anymore, has lost about 50 pounds this year Sys R: No cough, wheeze, shortness of breath. No chest pain or palpitations. No urinary complaints O/E: Awake alert vital signs are stable, afebrile and comfortable at the moment HEENT: Normal limits Chest: Air entry equal bilaterally Abd: Today her abdomen is soft, minimal tenderness in the left lower quadrant no evidence of guarding or rebound [place]: Intact Data: White cell coming down Impression: On CT scan patient has a small microperforation. Apparently on presentation she was quite tender in that area. Today her abdomen is soft, minimal tenderness, and her white cell count is coming down. Appears she was responding to antibiotic therapy. Plan: I do not feel this patient is going to require surgical intervention at this time. I have discussed with her her pathology. I have recommended that the she may want to see a surgeon experienced in laparoscopic colon resections. She could be a candidate for an elective resection due to the increasing frequency and intensity of her diverticular attacks.
[2021-04-04] MEDS: Levofloxacin500mg IV 500 MG/100 ML BAG IV SCH (14:34)
[2021-04-05] MEDS: METRONIDAZOLE 500mg IVPB 500 MG/100 ML BAG IV SCH ×3 (01:14→17:22)
[2021-04-05] MEDS: D5 0.45 NS 1,000 ML IV SCH ×3 (05:33→21:07)
[2021-04-05 05:41] LABS: Absolute Lymphocytes (CBC) 1.2 K/uL (0.7-4.9); Basophils % 0.4 % (0-1.3); Hematocrit 31.7 % (36.0-45.0); Lymphocytes % 12.6 % (15.3-44.8); MPV 7.6 fL (7.6-11.3); RBC Red Blood Cell Count 3.82 M/uL (3.86-4.86)
[2021-04-05 05:50] LABS: BUN Blood Urea Nitrogen 5 mg/dL (7-18); Bicarbonate 24 mmol/L (21-32); Glucose Level 125 mg/dL (74-106); Magnesium 2.3 mg/dL (1.8-2.4); Potassium 3.1 mmol/L (3.5-5.1); Sodium Level 142 mmol/L (136-145)
--- NOTE | 2021-04-05 05:55 | P.PN ---
Subjective Date of Service: 04/05/21 Chief Complaint: Diverticulitis with microperforation Subjective: Improving (Patient is passing gas. Still no bowel movement. Pain much improved.) Physical Examination - Vital Signs Temperature: 98.4 F Blood Pressure: 136/77 Pulse: 94 Respirations: 18 Pulse Ox (%): 96 Assessment & Plan Discharge Plan: Home Plan to discharge in: 24 Hours Physician Review Additional Text: COVID: negative CT scan: COMPARISON: Abdomen Pelvis W Contrast dated 05/08/2020 TECHNIQUE: Biphasic, helical CT imaging of the abdomen and pelvis was performed following 100 ml non-ionic IV contrast. No oral contrast administered. All CT scans are performed using dose optimization technique as appropriate and may include automated exposure control or mA/KV adjustment according to patient size. FINDINGS: No suspicious findings in the lung bases. The liver, spleen, and pancreas show no suspicious findings. Liver is borderline fatty infiltrated . No gallbladder or biliary tree abnormality. Symmetric renal function is seen with no hydronephrosis or suspicious renal mass. No pyelonephritis or acute parenchymal process. Contracted bladder shows no gross abnormality. No adrenal abnormalities. Uterus and ovaries show no primary abnormality. No stomach or small bowel abnormality. Appendix is normal. Colon from cecum to splenic flexure shows no acute findings. There is mild wall thickening along the descending colon with trace amount of stranding in the adjacent fat. Patient has a 12 centimeter long segment of sigmoid colon showing prominent circumferential wall thickening with edema and stranding in the adjacent fat. Stranding abuts the anterior margin of the left ovary and there could be secondary involvement by the inflammatory process with the left ovary. No fallopian tube dilatation. Two punctate air densities are present outside of the lumen of the colon position between colon and left ovary. No abscess is identified. No distant free air. No bowel pneumatosis identified. Patient has a few sigmoid diverticula present. Acute diverticulitis is favored over a nonspecific colitis. No hernia, mass or bulky lymphadenopathy. No suspicious bony findings. IMPRESSION: Mildly prominent acute sigmoid diverticulitis with 2 punctate air densities in the extraluminal fat between the involved colon and the left ovary. No abscess or drainable fluid collections seen. No distant free air or other surgically emergent finding. There is significant stranding in the surrounding fatty tissues with the inflammatory stranding abutting the anterior margin of the left ovary. KUB: COMPARISON: No comparisons FINDINGS: The bowel gas pattern is non-obstructive. No evidence of free air or pneumatosis. No suspicious calcifications. No significant bony findings. IMPRESSION: Negative examination. Physical exam: General: Alert, In no apparent distress, Oriented x3 HEENT: Neck supple Respiratory: Clear to auscultation bilaterally, Normal air movement Cardiovascular: Regular rate/rhythm, Normal S1 S2 Gastrointestinal: Normal bowel sounds, Soft and benign, Non-distended, no significant pain to the left lower quadrant Musculoskeletal: No clubbing, No swelling, No tenderness Integumentary: No rashes Neurological: Normal gait, Normal speech, Normal strength at 5/5 x4 extr, Normal tone, Sensation intact, Cranial nerves 3-12 intact, Normal affect Lymphatics: No axilla or inguinal lymphadenopathy Impression: Acute sigmoid diverticulitis with perforation in the extraluminal fat between the colon and left ovary Plan: Patient much improved. No significant pain today. No nausea or vomiting. Patient is passing gas. No bowel movement yet. Will advance diet to clear liquid. Will discuss with surgery about the possibility of advancing her diet within the next 24 hours with possible discharge as early as tomorrow with improvement. Continue IV Levaquin and Flagyl. We will continue to monitor closely. Encourage ambulation. Encourage incentive spirometer. Likely home in the next 24 hours. DVT prophylaxis: Lovenox CODE STATUS: Full code Advance care [id number] minutes: Home at discharge Time Spent Managing Pts Care (In Minutes): 55
[2021-04-05] MEDS ORDERED: POTASSIUM CL SA 10 MEQ TAB PO ONE (09:00)
[2021-04-05 09:44] VITALS: O2SAT 97
[2021-04-05] MEDS: ENOXAPARIN 40 MG/0.4 ML SQ SCH (09:45)
[2021-04-05] MEDS: Levofloxacin500mg IV 500 MG/100 ML BAG IV SCH (15:46)
[2021-04-05] MEDS: ONDANSETRON 4 MG/2 ML VIAL IV PRN (17:25)
[2021-04-06] MEDS: METRONIDAZOLE 500mg IVPB 500 MG/100 ML BAG IV SCH ×2 (00:41→08:42)
[2021-04-06 04:39] VITALS: BP 130/68; TEMP 98.2
[2021-04-06 04:44] LABS: Absolute Lymphocytes (CBC) 1.9 K/uL (0.7-4.9); Basophils % 0.5 % (0-1.3); Hematocrit 30.7 % (36.0-45.0); Lymphocytes % 20.1 % (15.3-44.8); MPV 7.8 fL (7.6-11.3); RBC Red Blood Cell Count 3.73 M/uL (3.86-4.86)
[2021-04-06 04:53] LABS: BUN Blood Urea Nitrogen 4 mg/dL (7-18); Bicarbonate 24 mmol/L (21-32); Glucose Level 118 mg/dL (74-106); Magnesium 2.3 mg/dL (1.8-2.4); Potassium 3.4 mmol/L (3.5-5.1); Sodium Level 140 mmol/L (136-145)
--- NOTE | 2021-04-06 05:58 | P.PN ---
Subjective Date of Service: 04/06/21 Chief Complaint: Diverticulitis with microperforation Subjective: Improving, Other (Patient tolerating full liquid diet. Passage of stool and gas noted.) Physical Examination - Vital Signs Temperature: 98.2 F Blood Pressure: 130/68 Pulse: 92 Respirations: 16 Pulse Ox (%): 99 Assessment & Plan Discharge Plan: Home Plan to discharge in: 24 Hours Physician Review Additional Text: COVID: negative CT scan: COMPARISON: Abdomen Pelvis W Contrast dated 05/08/2020 TECHNIQUE: Biphasic, helical CT imaging of the abdomen and pelvis was performed following 100 ml non-ionic IV contrast. No oral contrast administered. All CT scans are performed using dose optimization technique as appropriate and may include automated exposure control or mA/KV adjustment according to patient size. FINDINGS: No suspicious findings in the lung bases. The liver, spleen, and pancreas show no suspicious findings. Liver is borderline fatty infiltrated . No gallbladder or biliary tree abnormality. Symmetric renal function is seen with no hydronephrosis or suspicious renal mass. No pyelonephritis or acute parenchymal process. Contracted bladder shows no gross abnormality. No adrenal abnormalities. Uterus and ovaries show no primary abnormality. No stomach or small bowel abnormality. Appendix is normal. Colon from cecum to splenic flexure shows no acute findings. There is mild wall thickening along the descending colon with trace amount of stranding in the adjacent fat. Patient has a 12 centimeter long segment of sigmoid colon showing prominent circumferential wall thickening with edema and stranding in the adjacent fat. Stranding abuts the anterior margin of the left ovary and there could be secondary involvement by the inflammatory process with the left ovary. No fallopian tube dilatation. Two punctate air densities are present outside of the lumen of the colon position between colon and left ovary. No abscess is identified. No distant free air. No bowel pneumatosis identified. Patient has a few sigmoid diverticula present. Acute diverticulitis is favored over a nonspecific colitis. No hernia, mass or bulky lymphadenopathy. No suspicious bony findings. IMPRESSION: Mildly prominent acute sigmoid diverticulitis with 2 punctate air densities in the extraluminal fat between the involved colon and the left ovary. No abscess or drainable fluid collections seen. No distant free air or other surgically emergent finding. There is significant stranding in the surrounding fatty tissues with the inflammatory stranding abutting the anterior margin of the left ovary. KUB: COMPARISON: No comparisons FINDINGS: The bowel gas pattern is non-obstructive. No evidence of free air or pneumatosis. No suspicious calcifications. No significant bony findings. IMPRESSION: Negative examination. Physical exam: General: Alert, In no apparent distress, Oriented x3 HEENT: Neck supple Respiratory: Clear to auscultation bilaterally, Normal air movement Cardiovascular: Regular rate/rhythm, Normal S1 S2 Gastrointestinal: Normal bowel sounds, Soft and benign, Non-distended, no signif icant pain to the left lower quadrant Musculoskeletal: No clubbing, No swelling, No tenderness Integumentary: No rashes Neurological: Normal gait, Normal speech, Normal strength at 5/5 x4 extr, Normal tone, Sensation intact, Cranial nerves 3-12 intact, Normal affect Lymphatics: No axilla or inguinal lymphadenopathy Impression: Acute sigmoid diverticulitis with perforation in the extraluminal fat between the colon and left ovary Plan: Patient doing well at this time. No significant pain noted. No nausea, vomi ting. Passage of gas and stool noted. Will advance diet to soft diet this morning. If tolerates diet then patient can be discharged home with Levaquin and Flagyl as an outpatient. Patient will need GI evaluation in 4 to 6 weeks with colonoscopy. Patient will also need surgical evaluation in the future to consider further treatment including colon resection. Surgery recommends Dr. Vazquez in [place], [place]. Will plan to discharge later today once tolerating diet. DVT prophylaxis: Lovenox CODE STATUS: Full code Advance care [id number] minutes: Home at discharge Time Spent Managing Pts Care (In Minutes): 55
[2021-04-06] MEDS: ENOXAPARIN 40 MG/0.4 ML SQ SCH (08:43)
--- NOTE | 2021-04-06 08:46 | P.DS ---
Admission Date: 04/03/21 Discharge Date: 04/06/21 Disposition: ROUTINE DISCHARGE Discharge Condition: GOOD Reason for Admission: Diverticulitis with microperforation Consultations: Surgery-Dr. Hartman Procedures: COVID: negative CT scan: COMPARISON: Abdomen Pelvis W Contrast dated 05/08/2020 TECHNIQUE: Biphasic, helical CT imaging of the abdomen and pelvis was performed following 100 ml non-ionic IV contrast. No oral contrast administered. All CT scans are performed using dose optimization technique as appropriate and may include automated exposure control or mA/KV adjustment according to patient size. FINDINGS: No suspicious findings in the lung bases. The liver, spleen, and pancreas show no suspicious findings. Liver is borderline fatty infiltrated . No gallbladder or biliary tree abnormality. Symmetric renal function is seen with no hydronephrosis or suspicious renal mass. No pyelonephritis or acute parenchymal process. Contracted bladder shows no gross abnormality. No adrenal abnormalities. Uterus and ovaries show no primary abnormality. No stomach or small bowel abnormality. Appendix is normal. Colon from cecum to splenic flexure shows no acute findings. There is mild wall thickening along the descending colon with trace amount of stranding in the adjacent fat. Patient has a 12 centimeter long segment of sigmoid colon showing prominent circumferential wall thickening with edema and stranding in the adjacent fat. Stranding abuts the anterior margin of the left ovary and there could be secondary involvement by the inflammatory process with the left ovary. No fallopian tube dilatation. Two punctate air densities are present outside of the lumen of the colon position between colon and left ovary. No abscess is identified. No distant free air. No bowel pneumatosis identified. Patient has a few sigmoid diverticula present. Acute diverticulitis is favored over a nonspecific colitis. No hernia, mass or bulky lymphadenopathy. No suspicious bony findings. IMPRESSION: Mildly prominent acute sigmoid diverticulitis with 2 punctate air densities in the extraluminal fat between the involved colon and the left ovary. No abscess or drainable fluid collections seen. No distant free air or other surgically emergent finding. There is significant stranding in the surrounding fatty tissues with the inf lammatory stranding abutting the anterior margin of the left ovary. KUB: COMPARISON: No comparisons FINDINGS: The bowel gas pattern is non-obstructive. No evidence of free air or pneumatosis. No suspicious calcifications. No significant bony findings. IMPRESSION: Negative examination. Medical Problem List: Acute recurrent sigmoid diverticulitis with perforation in the extraluminal fat between the colon and left ovary Brief History of Present Illness: 31-year-old female with history of diverticulitis in the past. Patient had diverticulitis flareup about a month ago at [facility]. She was sent home with antibiotics and told to follow-up with GI. She is not been able to follow-up with GI. Patient presented to the emergency room with increased abdominal pain. Patient admitted for recurrent diverticulitis. Hospital Course: Patient presented with acute recurrent sigmoid diverticulitis with perforation in the extraluminal fat between the colon and ovary. Patient was admitted for treatment. Patient received IV antibiotic therapy. Surgery was consulted for further evaluation. Surgery recommended no intervention at this time. Her diet was slowly advanced. Patient improved. No surgical intervention was required. At discharge patient tolerating soft diet. Patient without significant abdominal pain, nausea and vomiting. At discharge patient will continue with Cipro 500 mg 1 pill twice daily and Flagyl 500 mg 3 times a day for 7 days. Recommend follow-up with surgery in 1 week to follow-up his hospitalization. Patient will need to establish care with GI in 4 to 6 weeks for colonoscopy to further address her condition. Surgery plans to send patient up to [place] with surgery specialty careDr. Vazquez to further evaluate her condition in the future as the patient may require laparoscopic colon resection due to recurrent diverticulitis. At discharge patient will continue with a low residue soft diet. Vital Signs/Physical Exam: Temp Pulse Resp BP Pulse Ox 98.2 F 92 H 16 130/68 99 04/06/21 08:45 04/06/21 08:45 04/06/21 08:45 04/06/21 08:45 04/06/21 08:45 General: Alert, In no apparent distress, Oriented x3, Cooperative HEENT: Atraumatic Neck: Supple Respiratory: Clear to auscultation bilaterally, Normal air movement Cardiovascular: Normal pulses, Regular rate/rhythm Gastrointestinal: Normal bowel sounds, No tenderness, No masses, No rebound, No guarding Musculoskeletal: No erythema, No tenderness, No warmth Neurological: Normal speech, Normal strength at 5/5 x4 extr, Normal tone, Normal affect Laboratory Data at Discharge: WBC 9.30 K/uL (4.3-10.9) 04/06/21 04:08 Hgb 10.2 g/dL (12.0-15.0) L 04/06/21 04:08 Hct 30.7 % (36.0-45.0) L 04/06/21 04:08 Plt Count 337 K/uL (152-406) 04/06/21 04:08 Sodium 140 mmol/L (136-145) 04/06/21 04:08 Potassium Cancelled 04/06/21 Unknown BUN 4 mg/dL (7-18) L 04/06/21 04:08 Creatinine 0.51 mg/dL (0.55-1.3) L 04/06/21 04:08 Glucose 118 mg/dL (74-106) H 04/06/21 04:08 Phosphorus 2.3 mg/dL (2.5-4.9) L 04/04/21 05:27 Magnesium 2.3 mg/dL (1.8-2.4) 04/06/21 04:08 Total Bilirubin 0.8 mg/dL (0.2-1.0) 04/04/21 05:27 AST 10 U/L (15-37) L 04/04/21 05:27 ALT 18 U/L (12-78) 04/04/21 05:27 Alkaline Phosphatase 70 U/L (45-117) 04/04/21 05:27 Lipase 101 U/L (73-393) 04/03/21 11:56 Home Medications: Ciprofloxacin HCl [Cipro 500 MG Tablet] 500 mg PO BID #14 tab 04/06/21 metroNIDAZOLE [Flagyl] 500 mg PO Q8H #21 tablet 04/06/21 New Medications: Ciprofloxacin HCl [Cipro 500 MG Tablet] 500 mg PO BID #14 tab metroNIDAZOLE [Flagyl] 500 mg PO Q8H #21 tablet Physician Discharge Instructions: Patient presented with acute recurrent sigmoid diverticulitis with perforation in the extraluminal fat between the colon and ovary. Patient was admitted for treatment. Patient received IV antibiotic therapy. Surgery was consulted for further evaluation. Surgery recommended no intervention at this time. Her diet was slowly advanced. Patient improved. No surgical intervention was required. At discharge patient tolerating soft diet. Patient without significant abdominal pain, nausea and vomiting. At discharge patient will continue with Cipro 500 mg 1 pill twice daily and Flagyl 500 mg 3 times a day for 7 days. Recommend follow-up with surgery in 1 week to follow-up his hospitalization. Patient will need to establish care with GI in 4 to 6 weeks for colonoscopy to further address her condition. Surgery plans to send patient up to [place] with surgery specialty careDr. Vazquez to further evaluate her condition in the future as the patient may require laparoscopic colon resection due to recurrent diverticulitis. At discharge patient will continue with a low residue soft diet. Diet: Low residu Activity: Ad teresita Followup: NONE,NONE [Primary Care Provider] - Time spent managing pt's care (in minutes): 55
[2021-04-06] MEDS ORDERED: POTASSIUM 25 MEQ EFFERV TAB PO ONE (09:00)
== END 2021-04-06 10:57 | disposition home or self-care (01) | DRG 392 ==
LOC: ER 11:07 → ERHOLD 14:44 → 2ND 19:48
PROVIDERS: ADMIT Hospitalist; ATTEND Hospitalist
DX: K57.20 Diverticulitis of large intestine with perforation and abscess without bleeding (principal); Z20.822 Contact with and (suspected) exposure to COVID-19
CPT/HCPCS: 36415; 74018; 74177; 80048; 80053; 80076; 81003; 81015; 81025; 83605; 83690; 83735; 83880; 84100; 84132; 85025; 94010; 99284; J1650; J2175; J2405; J2543; J7030; J7799; Q9967; U0003

== ENCOUNTER 2021-10-25 21:32 | Emergency (ER) | payer OTHER, SELFPAY ==
[2021-10-25] MEDS ORDERED: ACETAMINOPHEN 500 MG TAB ONE (22:06)
[2021-10-25] MEDS ORDERED: NA CHLORIDE 0.9% 2,000 ML ONE (23:12)
[2021-10-25 23:16] LABS: Urine Blood Negative (Negative); Urine Glucose Negative (Negative); Urine Protein 1+ (Negative); Urine Specific Gravity 1.025 (1.005-1.030); Urine pH 6.5 (5.0-7.0)
[2021-10-25 23:37] LABS: Urine Specific Gravity/Preg 1.025 (1.005-1.030)
[2021-10-25 23:43] LABS: Absolute Lymphocytes (CBC) 1.1 K/uL (0.7-4.9); Hematocrit 35.4 % (36.0-45.0); MPV 7.9 fL (7.6-11.3)
[2021-10-25] MEDS ORDERED: METOCLOPRAMIDE 10 MG/2mL INJ ONE (23:45)
[2021-10-25] MEDS ORDERED: DIPHENHYDRAMINE 50 MG/ML VIAL ONE (23:45)
[2021-10-25] MEDS ORDERED: ONDANSETRON 4 MG/2 ML VIAL ONE (23:46)
[2021-10-25 23:47] LABS: Protime INR 1.29
[2021-10-25 23:52] LABS: Albumin 3.4 g/dL (3.4-5.0); Bilirubin Total 0.9 mg/dL (0.2-1.0); Potassium 3.3 mmol/L (3.5-5.1); Protein, Total 8.3 g/dL (6.4-8.2)
[2021-10-26 00:46] LABS: Urine Bacteria <20 /HPF (<20); Urine RBC <5 /HPF (NONE SEEN)
[2021-10-26 01:16] LABS: Blood Morphology Comment NOT SEEN (NOT SEEN); Platelet Estimate ADEQ
--- NOTE | 2021-10-26 02:47 | EDPHYS ---
Physician Documentation [facility] Name: Shamika Sam Age: 31 yrs Sex: Female : 1990 Arrival Date: 10/25/2021 Time: 21:36 Bed 15 Private MD: ED Physician Francis Valdez HPI: 10/25 21:59 This 31 yrs old Female presents to ER via Ambulatory with complaints of cp Headache, Fever, Pain All Over. 21:59 The patient complains of pain to the left side of head. The patient describes the cp headache as aching. Onset: The symptoms/episode began/occurred this morning. Associated signs and symptoms: Pertinent positives: fever, body aches. 21:59 Severity of symptoms: in the emergency department the pain is unchanged, despite home cp interventions. 21:59 Headache History: The patient has had previous headaches and this one is different than cp previous episodes, and this one is more severe than previous episodes. 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 - Social history:: Smoking status: Patient denies any tobacco usage or history of. Patient/guardian denies using alcohol. ROS: 22:05 Constitutional: Positive for body aches, fever, Negative for poor PO intake. cp 22:05 Eyes: Negative for injury, pain, redness, and discharge. cp 22:05 ENT: Negative for drainage from ear(s), ear pain, sore throat, difficulty swallowing, difficulty handling secretions. 22:05 Neck: Negative for pain with movement, pain at rest, stiffness. 22:05 Cardiovascular: Negative for chest pain. 22:05 Respiratory: Negative for cough, shortness of breath, wheezing. 22:05 Abdomen/GI: Negative for vomiting, diarrhea, constipation. 22:05 Skin: Negative for cellulitis, rash. 22:05 Neuro: Positive for headache, Negative for altered mental status, weakness. 22:05 Neck: Negative for rash, swelling. cp 22:05 All other systems are negative. cp Exam: 22:10 Constitutional: The patient appears in no acute distress, alert, awake, non-toxic, well cp developed, well nourished, obese. 22:10 Head/Face: Normocephalic, atraumatic. cp 22:10 Eyes: Periorbital structures: appear normal, Pupils: equal, round, and reactive to light and accomodation, Extraocular movements: intact throughout, Conjunctiva: normal, no exudate, no injection, Sclera: no appreciated abnormality, Lids and lashes: appear normal, bilaterally. 22:10 ENT: External ear(s): are unremarkable, Ear canal(s): are normal, clear, TM's: dullness, bilaterally, Nose: is normal, Mouth: Lips: moist, Oral mucosa: moist, Posterior pharynx: Airway: no evidence of obstruction, patent, erythema, that is mild, exudate, is not appreciated. 22:10 Neck: ROM/movement: is normal, is supple, without pain, no range of motions limitations, no meningismus, no nuchal rigidity. 22:10 Chest/axilla: Inspection: normal. 22:10 Cardiovascular: Rate: tachycardic, Rhythm: regular. 22:10 Respiratory: the patient does not display signs of respiratory distress, Respirations: normal, no use of accessory muscles, no retractions, labored breathing, is not present, Breath sounds: are clear throughout, no decreased breath sounds, no stridor, no wheezing. 22:10 Abdomen/GI: Inspection: abdomen appears normal, Bowel sounds: active, all quadrants, Palpation: soft, in all quadrants, mild abdominal tenderness, in the left flank, rebound tenderness, is not appreciated, voluntary guarding, is not appreciated, involuntary guarding, is not appreciated. 22:10 Back: CVA tenderness, is absent. 22:10 Neuro: Orientation: to person, place \\T\\ time. Mentation: is normal, Motor: moves all fours, strength is normal, Sensation: is normal. 22:10 Neck: ROM/movement: Meningeal signs: are not present, Kernig's sign is negative, cp Brudzinski's sign is negative, nuchal rigidity, is not appreciated. 23:31 ECG was reviewed by the Attending Physician. cp Vital Signs: 21:53 BP 159 / 93; Pulse 136; Resp 22; Temp 101.3(TE); Pulse Ox 99% on R/A; Weight 113.4 kg; ld1 Height 5 ft. 2 in. (157.48 cm); Pain 6/10; 23:54 BP 127 / 64; Pulse 109; Resp 20; Pulse Ox 98% on R/A; lg3 10/26 01:04 BP 132 / 70; Pulse 106; Resp 16; Temp 99.3(O); Pulse Ox 99% on R/A; lg3 02:21 Temp 99.3(O); lg3 03:12 Temp 102.1(O); oe 04:51 BP 130 / 74; Pulse 105; Resp 17; Pulse Ox 99% on R/A; lg3 05:39 Temp 98.3(O); lg3 05:40 Temp 98.3(O); lg3 10/25 21:53 Body Mass Index 45.73 (113.40 kg, 157.48 cm) ld1 Rito Coma Score: 01:44 Eye Response: spontaneous(4). Verbal Response: oriented(5). Motor Response: obeys faisal commands(6). Total: 15. MDM: 10/25 22:16 Patient medically screened. cp 10/26 01:44 Differential diagnosis: epidural hematoma, neoplasm, temporal arteritis, trigeminal faisal neuralgia, vasomotor headache. Data reviewed: vital signs, nurses notes, radiologic studies, CT scan, plain films, ultrasound. Data interpreted: desk monitor: rate is 106 beats/min, Pulse oximetry: on room air is 99 %. Test interpretation: by ED physician or midlevel provider: plain radiologic studies. Counseling: I had a detailed discussion with the patient and/or guardian regarding: the historical points, exam findings, and any diagnostic results supporting the discharge/admit diagnosis, lab results, radiology results. 10/25 21:56 Order name: COVID-19 SARS RT PCR (Document "Date of Onset" if Symptomatic); Complete ld1 Time: 23:36 10/25 21:56 Order name: Flu; Complete Time: 02:21 ld1 10/25 21:56 Order name: Strep; Complete Time: 22:54 ld1 10/25 21:57 Order name: Blood Culture Adult (2) ld1 10/25 21:57 Order name: CBC with Diff; Complete Time: 01:41 ld1 10/26 00:18 Interpretation: Normal except: WBC 12.1; HGB 11.9; HCT 35.4; MOISÉS% 80.3; LYM% 9.0; NEUT cp A 9.7. 10/25 21:57 Order name: CMP; Complete Time: 00:17 ld1 10/26 00:18 Interpretation: Normal except: NA 135; K 3.3; GLUC 119; AST 55; ALK 130; TP 8.3; GLOB cp 4.9; A/G 0.7. 10/25 21:57 Order name: Lactate; Complete Time: 00:17 ld1 10/25 21:57 Order name: Protime (+inr); Complete Time: 00:17 [facility] 10/26 00:18 Interpretation: PT 14.3; Reviewed. 10/25 21:57 Order name: Ptt, Activated; Complete Time: 00:17 [facility] 10/25 21:58 Order name: Procalcitonin; Complete Time: 00:42 10/26 00:42 Interpretation: Abnormal: Procalcitonin 0.25. 10/25 21:58 Order name: Orange Screen Profile; Complete Time: 00:52 10/25 22:04 Order name: Urine Microscopic Only; Complete Time: 00:52 [facility] 10/25 22:42 Order name: Throat Culture [facility] 10/25 23:13 Order name: Urine --Ancillary (enter results); Complete Time: 00:17 10/25 23:17 Order name: Urine Dipstick-Ancillary; Complete Time: 23:36 [facility] 10/25 23:36 Interpretation: Normal except: UKET Trace; UPROT 1+. 10/25 23:25 Order name: Glucose, Ancillary Testing; Complete Time: 23:36 [facility] 10/25 23:45 Order name: CT Head Brain wo Cont 10/25 23:45 Order name: CT Abd/Pelvis - IV Contrast Only 10/26 00:08 Order name: Manual Differential; Complete Time: 01:41 [facility] 10/26 01:43 Order name: US Transvaginal Study (Probe) [facility] 10/26 02:15 Order name: Chest Pa And Lat (2 Views) XRAY [facility] 10/25 21:57 Order name: Accucheck; Complete Time: 23:53 [facility] 10/25 21:57 Order name: Cardiac monitoring; Complete Time: 23:53 10/25 21:57 Order name: EKG - Nurse/Tech; Complete Time: 23:53 10/25 21:57 Order name: IV Saline Lock - Large Bore; Complete Time: 23:02 10/25 21:57 Order name: Labs collected and sent; Complete Time: 23:01 10/25 21:57 Order name: O2 Per Protocol; Complete Time: 23:01 10/25 21:57 Order name: O2 Sat Monitoring; Complete Time: 23:01 10/25 22:04 Order name: Urine Dipstick-Ancillary (obtain specimen); Complete Time: 23:02 10/25 22:04 Order name: Urine Test (obtain specimen); Complete Time: 23:02 EC/14 23:31 Rate is 111 beats/min. Rhythm is regular. IA interval is normal. QRS interval is cp normal. QT interval is normal. T waves are Inverted in lead aVR. Interpreted by me. Reviewed by me. Administered Medications: 22:03 Drug: Tylenol 1000 mg Route: PO; 10/26 02:21 Follow up: Temp 99.3 Oral; Response: No adverse reaction; Temperature is decreased 10/25 23:52 Drug: Reglan (metoCLOPramide) 10 mg Route: IVP; Site: left forearm; lg3 23:53 Follow up: Response: No adverse reaction lg3 23:52 Drug: Benadryl (diphenhydrAMINE) 25 mg Route: IVP; Site: left forearm; lg3 23:52 Follow up: Response: No adverse reaction lg3 23:52 Drug: Zofran (Ondansetron) 4 mg Route: IVP; Site: left forearm; lg3 23:52 Follow up: Response: No adverse reaction lg3 23:53 Drug: NS 0.9% 1000 ml Route: IV; Rate: 1 bolus; Site: left forearm; 10/26 02:20 Follow up: IV Status: Completed infusion; IV Intake: 1000ml 10/25 23:53 Drug: NS 0.9% 1000 ml Route: IV; Rate: 1 bolus; Site: left forearm; 3 10/26 02:20 Follow up: IV Status: Completed infusion; IV Intake: 1000ml lg3 03:03 Drug: Rocephin (cefTRIAXone) 1 grams Route: IV; Rate: per protocol; Site: left forearm; lg3 03:03 Follow up: Response: No adverse reaction; IV Status: Completed infusion; IV Intake: [id number] 03:03 Drug: Motrin (ibuprofen) 800 mg Route: PO; lg3 05:40 Follow up: Temp 98.3 Oral; Response: No adverse reaction; Temperature is decreased lg3 03:25 Drug: Phenergan (promethazine) 12.5 mg Route: IVP; Site: left forearm; lg3 04:15 Follow up: Response: No adverse reaction lg3 03:48 Drug: Cipro (ciprofloxacin) 400 mg Volume: 200 ml; Route: IVPB; Infused Over: 60 mins; lg3 Site: left forearm; 04:14 Follow up: Response: No adverse reaction; IV Status: Completed infusion; IV Intake: lg3 200ml 03:48 Drug: Flagyl (metroNIDAZOLE) 500 mg Volume: 100 ml; Route: IVPB; Rate: 200 ml/hr; lg3 Infused Over: 30 mins; Site: left forearm; 04:14 Follow up: Response: No adverse reaction; IV Status: Completed infusion; IV Intake: lg3 100ml Disposition: 01:43 Co-signature as Attending Physician, Francis Valdez MD I agree with the assessment and faisal plan of care. Disposition Summary: 10/26/21 03:23 Transfer Ordered Transfer Location: [facility] faisal Reason: Higher level of care faisal Condition: Fair(10/26/21 03:23) faisal Problem: new(10/26/21 03:23) faisal Symptoms: have improved(10/26/21 03:23) faisal Accepting Physician: to [facility](10/26/21 05:46) lg3 Diagnosis - Fever, unspecified(10/26/21 03:23) faisal - Other and unspecified ovarian cysts - left [id number](10/26/21 03:23) faisal - Acute salpingitis - tuboovarian abscess faisal - Other malaise and fatigue(10/26/21 03:23) faisal - Obesity, unspecified(10/26/21 03:23) faisal Forms: - Medication Reconciliation Form faisal - SBAR form faisal Signatures: Dispatcher [employer] Francis Mcgrath MD MD cha Page, Corey, PA PA cp Cherelle Goldstein, RN RN lg3 Delai Gallagher, RN RN ld1 Corrections: (The following items were deleted from the chart) 03:00 02:47 Home faisal faisal 03:00 02:47 new faisal faisal 03:00 02:47 have improved faisal faisal 03:00 02:47 Stable faisal faisal 03:00 02:47 Headache faisal faisal 03:00 02:47 Other malaise and fatigue faisal faisal 03:00 02:47 Fever, unspecified faisal faisal 03:00 02:47 Other and unspecified ovarian cysts - left 6x6x6 cm faisal faisal 03:21 03:02 Observation faisal faisal 03:21 03:02 Felipa Hubbard faisal faisal 03:21 03:02 Telemetry/MedSurg (observation) faisal faisal 03:21 03:02 Stable faisal faisal 03:21 03:02 new faisal faisal 03:21 03:02 have improved faisal faisal 03:21 03:02 Standard faisal faisal 03:21 03:02 faisal faisal 03:21 03:02 Fever, unspecified faisal faisal 03:21 03:02 Other malaise and fatigue faisal faisal 03:21 03:02 Headache faisal faisal 03:21 03:02 Other and unspecified ovarian cysts - 6x6x6 cm faisal faisal 03:21 03:02 Obesity, unspecified faisal faisal 05:22 03:21 WESTERGREN SEDRATE+H.LAB.BRZ ordered. EDMS EDMS 05:46 03:23 to [facility] faisal lg3 16 01: 06 02:33 Neck: ROM/movement: Meningeal signs: are not present, Kernig's sign is cp negative, Brudzinski's sign is negative, nuchal rigidity, is not appreciated, faisal 10/27 00: 06 22:05 All other systems are negative, cp cp 10/27 00:10/26 02:33 Neck: Negative for rash, swelling, faisal cp
--- NOTE | 2021-10-26 02:47 | ER ---
Nurse's Notes [facility] – [place], [place] Name: Shamika Sam Age: 31 yrs Sex: Female : 1990 Arrival Date: 10/25/2021 Time: 21:36 Bed 15 Private MD: Diagnosis: Fever, unspecified;Other and unspecified ovarian cysts-left [id number];Acute salpingitis-tuboovarian abscess;Other malaise and fatigue;Obesity, unspecified Presentation: 10/25 21:53 Chief complaint: Patient states: Left sided headache, nausea, ear ache, body aches X 1 ld1 day. Coronavirus screen: Client presents with at least one sign or symptom that may indicate coronavirus-19. Standard/surgical mask placed on the client. Ebola Screen: No symptoms or risks identified at this time. Initial Sepsis Screen: Does the patient meet any 2 criteria? No. Patient's initial sepsis screen is negative. Does the patient have a suspected source of infection? No. Patient's initial sepsis screen is negative. Risk Assessment: Do you want to hurt yourself or someone else? Patient reports no desire to harm self or others. Onset of symptoms was October 25, 2021. 21:53 Method Of Arrival: Ambulatory ld1 21:53 Acuity: JEANNETTE 3 ld1 Triage Assessment: 21:55 Headache History: Denies prior headaches. General: Appears in no apparent distress. ld1 comfortable, Behavior is calm, cooperative, appropriate for age. Pain: Complains of pain in forehead Pain does not radiate. Pain currently is 8 out of 10 on a pain scale. Quality of pain is described as throbbing, Pain began suddenly, Also complains of nausea. EENT: No signs and/or symptoms were reported regarding the EENT system. Neuro: Level of Consciousness is awake, alert, obeys commands, Oriented to person, place, time, situation. Cardiovascular: Capillary refill < 3 seconds Patient's skin is warm and dry. Respiratory: Airway is patent Respiratory effort is even, unlabored. GI: Abdomen is round non-distended. : No signs and/or symptoms were reported regarding the genitourinary system. Derm: No signs and/or symptoms reported regarding the dermatologic system. Musculoskeletal: No signs and/or symptoms reported regarding the musculoskeletal system. 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 - Social history:: Smoking status: Patient denies any tobacco usage or history of. Patient/guardian denies using alcohol. Screenin:54 Abuse screen: Denies threats or abuse. Denies injuries from another. Nutritional lg3 screening: No deficits noted. Tuberculosis screening: No symptoms or risk factors identified. Fall Risk None identified. Assessment: 23:54 General: Appears in no apparent distress. uncomfortable, Behavior is calm, cooperative. lg3 Pain: Complains of pain in left femoral area and face and forehead. Neuro: No deficits noted. Damon Agitation-Sedation Scale (RASS): 0 - Alert and Calm Level of Consciousness is awake, alert, obeys commands, Oriented to person, place, time, situation. Cardiovascular: No deficits noted. Denies chest pain, shortness of breath, Capillary refill < 3 seconds Clubbing of nail beds is absent JVD is absent Patient's skin is warm and dry. Respiratory: No deficits noted. Airway is patent Trachea midline Respiratory effort is even, unlabored, Respiratory pattern is regular, symmetrical. GI: No deficits noted. Abdomen is round non-distended, obese, Reports nausea. : No deficits noted. No signs and/or symptoms were reported regarding the genitourinary system. EENT: No deficits noted. No signs and/or symptoms were reported regarding the EENT system. Derm: No deficits noted. No signs and/or symptoms reported regarding the dermatologic system. Skin is intact, is healthy with good turgor, Skin is dry, Skin is pink, warm \\T\\ dry. Musculoskeletal: No deficits noted. No signs and/or symptoms reported regarding the musculoskeletal system. Circulation, motion, and sensation intact. Range of motion: intact in all extremities. 10/26 01:05 Reassessment: Patient appears in no apparent distress at this time. No changes from lg3 previously documented assessment. Patient and/or family updated on plan of care and expected duration. Pain level reassessed. Patient is alert, oriented x 3, equal unlabored respirations, skin warm/dry/pink. 04:52 Reassessment: Patient appears in no apparent distress at this time. No changes from lg3 previously documented assessment. Patient and/or family updated on plan of care and expected duration. Pain level reassessed. Patient is alert, oriented x 3, equal unlabored respirations, skin warm/dry/pink. Vital Signs: 10/25 21:53 BP 159 / 93; Pulse 136; Resp 22; Temp 101.3(TE); Pulse Ox 99% on R/A; Weight 113.4 kg; ld1 Height 5 ft. 2 in. (157.48 cm); Pain 6/10; 23:54 BP 127 / 64; Pulse 109; Resp 20; Pulse Ox 98% on R/A; lg3 10/26 01:04 BP 132 / 70; Pulse 106; Resp 16; Temp 99.3(O); Pulse Ox 99% on R/A; lg3 02:21 Temp 99.3(O); lg3 03:12 Temp 102.1(O); oe 04:51 BP 130 / 74; Pulse 105; Resp 17; Pulse Ox 99% on R/A; lg3 05:39 Temp 98.3(O); lg3 05:40 Temp 98.3(O); lg3 10/25 21:53 Body Mass Index 45.73 (113.40 kg, 157.48 cm) ld1 Rito Coma Score: 01:44 Eye Response: spontaneous(4). Verbal Response: oriented(5). Motor Response: obeys faisal commands(6). Total: 15. ED Course: 10/25 21:36 Patient arrived in ED. ja2 21:52 Francis Ramirez PA is PHCP. cp 21:52 Francis Valdez MD is Attending Physician. cp 21:55 Triage completed. ld1 21:55 Arm band placed on right wrist. ld1 22:03 Strep Sent. ld1 22:03 Flu Sent. ld1 22:03 COVID-19 SARS RT PCR (Document "Date of Onset" if Symptomatic) Sent. ld1 22:17 Cherelle Goldstein, RN is Primary Nurse. lg3 23:00 Throat Culture Sent. lg3 23:00 [place] Screen Profile Sent. lg3 23:00 Procalcitonin Sent. lg3 23:00 Blood Culture Adult (2) Sent. lg3 23:00 CBC with Diff Sent. lg3 23:00 CMP Sent. lg3 23:00 Lactate Sent. lg3 23:01 Protime (+inr) Sent. lg3 23:01 Ptt, Activated Sent. lg3 23:01 Flu Sent. lg3 23:01 COVID-19 SARS RT PCR (Document "Date of Onset" if Symptomatic) Sent. lg3 23:02 Urine Microscopic Only Sent. lg3 23:03 Inserted saline lock: 20 gauge in left forearm, using aseptic technique. Blood lg3 collected. 23:53 Urine Microscopic Only Sent. lg3 23:54 Patient has correct armband on for positive identification. Bed in low position. Call lg3 light in reach. Side rails up X 1. Client placed on continuous cardiac and pulse oximetry monitoring. NIBP monitoring applied. Door closed. Noise minimized. Family accompanied patient. 10/26 00:12 Manual Differential Sent. lg3 00:22 CT Head Brain wo Cont In Process Unspecified. EDMS 00:23 CT Abd/Pelvis - IV Contrast Only In Process Unspecified. EDMS 02:33 US Transvaginal Study (Probe) In Process Unspecified. EDMS 02:36 Lesly Gerber MD is Referral Physician. faisal 02:48 Chest Pa And Lat (2 Views) XRAY In Process Unspecified. EDMS 03:01 Felipa Hubbard MD is Hospitalizing Provider. faisal 03:50 Dr. Valdez initiated call for transfer to [facility]. wm 03:[address] Valdez, Pt is accepted for transfer by [facility]. wm 05:46 No provider procedures requiring assistance completed. Patient transferred, IV remains lg3 in place. intact, No redness/swelling at site. Administered Medications: 10/25 22:03 Drug: Tylenol 1000 mg Route: PO; ld1 10/26 02:21 Follow up: Temp 99.3 Oral; Response: No adverse reaction; Temperature is decreased 3 10/25 23:52 Drug: Reglan (metoCLOPramide) 10 mg Route: IVP; Site: left forearm; lg3 23:53 Follow up: Response: No adverse reaction lg3 23:52 Drug: Benadryl (diphenhydrAMINE) 25 mg Route: IVP; Site: left forearm; lg3 23:52 Follow up: Response: No adverse reaction lg3 23:52 Drug: Zofran (Ondansetron) 4 mg Route: IVP; Site: left forearm; lg3 23:52 Follow up: Response: No adverse reaction lg3 23:53 Drug: NS 0.9% 1000 ml Route: IV; Rate: 1 bolus; Site: left forearm; lg3 10/26 02:20 Follow up: IV Status: Completed infusion; IV Intake: 1000ml lg3 10/25 23:53 Drug: NS 0.9% 1000 ml Route: IV; Rate: 1 bolus; Site: left forearm; lg3 10/26 02:20 Follow up: IV Status: Completed infusion; IV Intake: 1000ml lg3 03:03 Drug: Rocephin (cefTRIAXone) 1 grams Route: IV; Rate: per protocol; Site: left forearm; lg3 03:03 Follow up: Response: No adverse reaction; IV Status: Completed infusion; IV Intake: [id number] 03:03 Drug: Motrin (ibuprofen) 800 mg Route: PO; lg3 05:40 Follow up: Temp 98.3 Oral; Response: No adverse reaction; Temperature is decreased lg3 03:25 Drug: Phenergan (promethazine) 12.5 mg Route: IVP; Site: left forearm; lg3 04:15 Follow up: Response: No adverse reaction lg3 03:48 Drug: Cipro (ciprofloxacin) 400 mg Volume: 200 ml; Route: IVPB; Infused Over: 60 mins; lg3 Site: left forearm; 04:14 Follow up: Response: No adverse reaction; IV Status: Completed infusion; IV Intake: lg3 200ml 03:48 Drug: Flagyl (metroNIDAZOLE) 500 mg Volume: 100 ml; Route: IVPB; Rate: 200 ml/hr; lg3 Infused Over: 30 mins; Site: left forearm; 04:14 Follow up: Response: No adverse reaction; IV Status: Completed infusion; IV Intake: lg3 100ml Medication: 10/25 23:58 VIS not applicable for this client. lg3 Intake: 10/26 02:20 IV: 1000ml; Total: 1000ml. lg3 02:20 IV: 1000ml; Total: 2000ml. lg3 03:03 IV: 10ml; Total: 2010ml. lg3 04:14 IV: 200ml; Total: 2210ml. lg3 04:14 IV: 100ml; Total: 2310ml. lg3 Outcome: 02:47 Discharge ordered by . faisal 03:02 Decision to Hospitalize by Provider. faisal 03:23 ER care complete, transfer ordered by . faisal 05:46 Transferred by ground EMS to [facility], Transfer form lg3 completed. 05:46 Condition: stable 05:46 Discharge instructions given to patient, Instructed on the need for transfer, Demonstrated understanding of instructions. 05:46 Patient left the ED. lg3 Signatures: Dispatcher [employer] EDMS Francis Valdez MD MD cha Page, Corey, PA Philipp Phelan cp, Lacie, RN RN lg3 Delia Gallagher RN RN ld1 Dianne Adam Jessica ja2
[2021-10-26] MEDS ORDERED: CEFTRIAXONE 1000 MG/VIAL ONE (02:52)
[2021-10-26] MEDS ORDERED: IBUPROFEN 400 MG TAB ONE (03:08)
[2021-10-26] MEDS ORDERED: PROMETHAZINE INJ 25 MG/ML AMP ONE (03:24)
[2021-10-26] MEDS ORDERED: METRONIDAZOLE 500mg IVPB 500 MG/100 ML BAG IV ONE (03:47)
[2021-10-26] MEDS ORDERED: CIPROFLOXACIN 400mg IV 400 MG/200 ML BAG IV ONE (03:47)
[2021-10-26 05:57] VITALS: O2SAT 99
[2021-10-26 06:01] VITALS: BP 130/74
[2021-10-26 06:02] VITALS: TEMP 98.3
--- NOTE | 2021-10-26 08:05 | EKG ---
Test Date: 2021-10-25 Test Time: 23:25:58 Local Flatbed Driver: MEASUREMENT RESULTS: Intervals: Rate: 111 ME: 130 QRSD: 78 QT: 352 QTc: 478 [place]: P: 60 ME: 130 QRS: 33 T: 26 INTERPRETIVE STATEMENTS: Sinus tachycardia Otherwise normal ECG No previous ECG available for comparison Electronically Signed On 10-26-21 08:05:22 CDT by Doroteo Schwab
--- NOTE | 2021-10-26 11:45 | RAD REPORT ---
EXAM DESCRIPTION: CT - Head Brain Wo Cont - 10/26/2021 6:34 am CLINICAL HISTORY: Headache, sudden, severe TECHNIQUE: Axial computed tomography images of the head/brain without intravenous contrast. Sagitt al and coronal reformatted images were created and reviewed. This CT exam was performed using one o r more of the following dose reduction techniques: automated exposure control, adjustment of the mA and/or kV according to patient size, and/or use of iterative reconstruction technique. COMPARISON: No relevant prior studies available. FINDINGS: Brain: Unremarkable. No hemorrhage. No significant white matter disease. No edema. Ventricles: Unremarkable. No ventriculomegaly. Bones/joints: Unremarkable. No acute fracture. Soft tissues: Unremarkable. Sinuses: Left maxillary sinus mucous retention cyst/polyp. Mastoid air cells: Unremarkable as visualized. No mastoid effusion. IMPRESSION: No acute intracranial or extra-axial abnormality. Electronically signed by: Jefferson Dominguez MD 10/26/2021 12:49 AM CDT Due to temporary technical issues with the PACS/Fluency reporting system, reports are being signed by the in house radiologist without review as a courtesy to ensure prompt reporting. The interpreting r adiologist is fully responsible for the content of the report.
--- NOTE | 2021-10-26 11:51 | RAD REPORT ---
EXAM DESCRIPTION: CT - Abdomen Pelvis W Contrast - 10/26/2021 6:33 am CLINICAL HISTORY: The patient is 31 years old and is Female; LLQ abdominal pain TECHNIQUE: Axial computed tomography images of the abdomen and pelvis with intravenous contrast. S agittal and coronal reformatted images were created and reviewed. This CT exam was performed using one or more of the following dose reduction techniques: automated exposure control, adjustment of t he mA and/or kV according to patient size, and/or use of iterative reconstruction technique. COMPARISON: April 03, 2021. FINDINGS: Lung bases: Unremarkable. No mass. No consolidation. ABDOMEN: Liver: Unremarkable. No mass. Gallbladder and bile ducts: Unremarkable. No calcified stones. No ductal dilation. Pancreas: Unremarkable. No mass. No ductal dilation. Spleen: Unremarkable. No splenomegaly. Adrenals: Unremarkable. No mass. Kidneys and ureters: Unremarkable. No solid mass. No hydronephrosis. Stomach and bowel: Scattered colonic diverticula. No obstruction. No mucosal thickening. PELVIS: Appendix: No findings to suggest acute appendicitis. Bladder: Unremarkable. No mass. Reproductive: There is a 5.6 x 5.7 x 6.4 cm heterogeneous and multiloculated/septated lesion in the left adnexal region with some adjacent fluid/stranding concerning for infection or neoplasm. ABDOMEN and PELVIS: Intraperitoneal space: Unremarkable. No free air. No significant fluid collection. Bones/joints: No acute fracture. No dislocation. Soft tissues: Unremarkable. Vasculature: Unremarkable. No abdominal aortic aneurysm. Lymph nodes: Enlarged 1.1 cm left periaortic lymph node at the level of L2. IMPRESSION: There is a 5.6 x 5.7 x 6.4 cm heterogeneous and multiloculated/septated lesion in the le ft adnexal region with some adjacent fluid/stranding concerning for infection or neoplasm. Consider pelvic ultrasound for further evaluation if clinically indicated. Electronically signed by: Son Smith MD 10/26/2021 12:49 AM CDT Due to temporary technical issues with the PACS/Fluency reporting system, reports are being signed by the in house radiologist without review as a courtesy to ensure prompt reporting. The interpreting r adiologist is fully responsible for the content of the report.
--- NOTE | 2021-10-26 12:07 | RAD REPORT ---
EXAM DESCRIPTION: US - Transvaginal Study Probe - 10/26/2021 3:59 am CLINICAL HISTORY: ABD PAIN TECHNIQUE: Real-time transvaginal pelvic ultrasound with image documentation. Transvaginal imaging was used for better evaluation of the endometrium and adnexa. COMPARISON: Abdomen pelvis CT dated 10/26/2021 FINDINGS: Uterus/cervix: The uterus is anteverted and measures 8.1 x 3.9 x 3.8 cm. The endometri al stripe measures 5 mm in thickness. No myometrial mass. Right ovary: The right ovary measures 4 x 2.9 x 2.9 cm. Normal blood flow. Left ovary: The left ovary measures 7.6 x 6.3 x 4.3 cm. There are a few cystic components. An index lesion measures 2.1 x 1.6 x 1.8 cm. Normal blood flow. Free fluid: No free fluid. Bladder: Empty bladder which cannot be evaluated with this probe. IMPRESSION: Left ovarian enlargement with underlying small cystic components. Given the infiltrative changes and gas foci on the recent CT, the possibility of a tubo-ovarian abscess should be considere d. Suspect a fistula extending from the sigmoid colon on the CT (series 502 images 47 through 51 and series 501 images 67 through 69). THIS REPORT CONTAINS FINDINGS THAT MAY BE CRITICAL TO PATIENT CARE: The findings were verbally discu ssed via telephone conference with Dr. Francis Valdez on 10/26/2021 3:16 AM CDT. The results were ackn owledged and understood. Electronically signed by: Jefferson Dominguez MD 10/26/2021 3:19 AM CDT Due to temporary technical issues with the PACS/Fluency reporting system, reports are being signed by the in house radiologist without review as a courtesy to ensure prompt reporting. The interpreting r adiologist is fully responsible for the content of the report.
--- NOTE | 2021-10-26 12:13 | RAD REPORT ---
EXAM DESCRIPTION: RAD - Chest Pa And Lat (2 Views) - 10/26/2021 2:46 am CLINICAL HISTORY: The patient is 31 years old and is Female; COUGH TECHNIQUE: Frontal and lateral views of the chest. COMPARISON: No relevant prior studies available. FINDINGS: Lungs: Unremarkable. No consolidation. Pleural space: Unremarkable. No pneumothorax. Heart: Unremarkable. Mediastinum: Unremarkable. Bones/joints: Unremarkable. IMPRESSION: No acute findings in the chest. Electronically signed by: Son Smith MD 10/26/2021 2:55 AM CDT Due to temporary technical issues with the PACS/Fluency reporting system, reports are being signed by the in house radiologist without review as a courtesy to ensure prompt reporting. The interpreting r adiologist is fully responsible for the content of the report.
== END 2021-10-26 05:46 | disposition short-term general hospital (02) ==
LOC: ER 21:32
DX: N70.01 Acute salpingitis (principal); N70.93 Salpingitis and oophoritis, unspecified; N83.292 Other ovarian cyst, left side; R53.81 Other malaise; R53.83 Other fatigue; E66.9 Obesity, unspecified; Z68.42 Body mass index [BMI] 45.0-49.9, adult; Z88.5 Allergy status to narcotic agent; Z20.822 Contact with and (suspected) exposure to COVID-19
CPT/HCPCS: 93005; 87040 ×2; 87070; 85025; 36415; 86308; 81025; 85610; 82947; 87081; 83605; 85730; 80053; 84145; 87804 ×2; 70450; 74177; 71046; 76830; U0003; Q9967; J2765; J2550; J1200; J7030; J3490; J2405; J0744; 81003; 81015

== ENCOUNTER 2022-06-16 04:16 | Emergency (ER) | payer OTHER, SELFPAY ==
--- OUTSIDE RECORDS SUMMARY | 2022-06-16 04:21 | XMS REPORT | Continuity of Care Document ---
:1990 Author Organization [facility] t Address [address] [place] [address] Care Team Providers Name Role Phone ABDIEL BARRAZA Primary Care Physician Unavailable SYSTEM, PROVIDER NOT IN Attending Clinician Unavailable LIDYA CURRIE Attending Clinician Unavailable ALONZO SELBY Attending Clinician Unavailable [place] Attending Clinician UNKNOWN, ATTENDING Attending Clinician Unavailable Pgy3 Attending Clinician Unavailable Lidya Currie MD Attending Clinician Doctor Unassigned, [place] Attending Clinician Unavailable Lopez Villatoro MD Attending Clinician LOPEZ VILLATORO Attending Clinician Unavailable Mona Holly LVN Attending Clinician Only, Lcc Test Attending Clinician Unavailable c-Lab Attending Clinician Unavailable RADIOLOGY Attending Clinician Unavailable Yaa Morton RN Attending Clinician Alejandro Camarena MD Attending Clinician Eulogio Alva MD Attending Clinician Georgette Paulson MD Attending Clinician Fuad Love MD Attending Clinician Miguel Mckeon DO Attending Clinician LIDYA CURRIE Admitting Clinician Unavailable Lidya Currie MD Admitting Clinician GEORGETTE PAULSON Admitting Clinician Unavailable Miguel Mckeon DO Admitting Clinician Payers Payer Name Policy Type Policy Number Effective Date Expiration Date Jak [place] [id number] 2021 HEALTHCARE 00:00:00 [place] [id number] 2021 WOMEN 00:00:00 [facility] CASEBOOK [id number] 2021 2022 00:00:00 00:00:00 Problems Condition Condition Condition Status Onset Resolution Last Treating Co mments Source Name Details Category Date Date Treatment Clinician Date Nausea Nausea Disease Active 2021-05 Univers 0-14 ity of 00:00: [address] Pelvic Pelvic Disease Active Univers abscess in abscess in 6-15 it y of female female 00:00: [address] Perforated 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 0-15 it y of um of um of 00:00: [place] large large 00 [facility] intestine intestine Bran ch BV BV Disease Active Univers (bacterial (bacterial 6-10 it y of vaginosis) [place]inosis[place] [facility] Branch Yeast Yeast Disease Active Univers infection infection 6-10 ity of of the of the 00:00: [place] vagina vagina 00 [facility] Morbid Morbid Disease Active Univers obesity obesity 6-10 ity of 00:00: [address] Branch Absence of Absence of Disease Active U nivers menstruati menstruati 6-10 it y of on on 00:00: [address] Branch Dyspareuni Dyspareuni Disease Active U nivers a a 6-10 ity of 00:00: [address] Branch Allergies, Adverse Reactions, Alerts Allergy Allergy Status Severity Reaction(s) Onset Inactive Treating Comm ents Source Name Type Date Date Clinician NO KNOWN Drug Active Univers ALLERGIE Class ity of S [facility] Social History Social Habit Start Date Stop Date Quantity Comments Source Exposure to 2022-03-12 2022-03-22 Not sure [facility]-CoV-2 00:00:00 16:33:00 [facility] (event) Branch Alcohol intake 2022-03-22 2022-03-22 Current University of 00:00:00 00:00:00 non-drinker of [facility] alcohol (finding) [place] Tobacco use and 2021-11-25 2021-11-25 Smokeless tobacco Un iversity of exposure 00:00:00 00:00:00 non-user [facility] Sex Assigned At [birth year] Universit y of 00:00:00 00:00:[address] [facility] Smoking Status Start Date Stop Date Source Never smoked tobacco [facility] Medications Ordered Filled Start Stop Current Ordering Indication Dosage Frequency Signature Comments Components Source Medication Medication Date Date Medication? Clinician (SIG) Name Name acetaminoph 2021-05 No 1000mg 1,000 mg, Univers en 05-22 Oral, ity of (TYLENOL) 23:45: 23:18 [place]CE[place] tablet [place] :00 dose, On Medical 1,000 mg [facility] 03/22/22 at 1745, CARROL ketorolac 2021-05- No 30mg 30 mg, Unive rs (TORADOL) 05-22 Intramuscu ity of injection 23:45: 23:17 [place], [place]CE[place] 30 mg 00 :00 1 dose, On Medical [facility] 03/22/22 at 1745, Routine metoclopram 2021-05 No 10mg 10 mg, Uni vers jennie HCl 05-22 Intramuscu ity o f (REGLAN) 23:00: 23:17 [place] 00 :00 1 dose, On Medi keith 10 mg [facility] 03/22/22 at 1700, CARROL Butalbital- 2021-05 Yes [id number] 1{capsu Take 1 Univers Acetaminoph 05-22 le} capsule by it y of en-Caff 00:00: mouth [place] (FIORICET) 00 every 6 Medica l 50-300-40 (six) Branch mg per hours as capsule needed for Pain (scale 4-6). BIOTIN ORAL 2021-0 Yes Take by Uni vers 9-19 mouth. ity of 10:18: [address] BIOTIN ORAL 2021-0 Yes Take by Uni vers 9-19 mouth. ity of 10:18: [address] Branch BIOTIN ORAL 202-0 Yes Take by Uni vers 9-19 mouth. ity of 10:18: [address] BIOTIN ORAL 2021-0 Yes Take by Uni vers 9-19 mouth. ity of 10:18: [address] BIOTIN ORAL 2021-0 Yes Take by Uni vers 9-19 mouth. ity of 10:18: [address] BIOTIN ORAL 2021-0 Yes Take by Uni vers 9-19 mouth. ity of 10:18: [address] BIOTIN ORAL 2021-0 Yes Take by Uni vers 9-19 mouth. ity of 10:18: [address] Branch levothyroxi 2021-0 Yes [id number] 175ug Take 1 Univers ne 8-27 tablet by ity of (UNITHROID) 00:00: mouth [place] 175 mcg 00 every Medical tablet morning. Branch levothyroxi 2021-0 Yes [id number] 175ug Take 1 Univers ne 8-27 tablet by ity of (UNITHROID) 00:00: mouth [place] 175 mcg 00 every Medical tablet morning. Branch levothyroxi 2-0 Yes [id number] 175ug Take 1 Univers ne 8-27 tablet by ity of (UNITHROID) 00:00: mouth [place] 175 mcg 00 every Medical tablet morning. Branch levothyroxi 2-0 Yes [id number] 175ug Take 1 Univers ne 8-27 tablet by ity of (UNITHROID) 00:00: mouth [place] 175 mcg 00 every Medical tablet morning. Branch levothyroxi 2021-0 Yes [id number] 175ug Take 1 Univers ne 8-27 tablet by ity of (UNITHROID) 00:00: mouth [place] 175 mcg 00 every Medical tablet morning. Branch levothyroxi 2022-0 Yes [id number] 175ug Take 1 Univers ne 8-27 tablet by ity of (UNITHROID) 00:00: mouth [place] 175 mcg 00 every Medical tablet morning. Branch levothyroxi 2022-0 Yes [id number] 175ug Take 1 Univers ne 8-27 tablet by ity of (UNITHROID) 00:00: mouth [place] 175 mcg 00 every Medical tablet morning. Branch levothyroxi 2021-0 Yes [id number] 175ug Take 1 Univers ne 8-27 tablet by ity of (UNITHROID) 00:00: mouth [place] 175 mcg 00 every Medical tablet morning. Branch levothyroxi 2021-0 Yes [id number] 175ug Take 1 Univers ne 8-27 tablet by ity of (UNITHROID) 00:00: mouth [place] 175 mcg 00 every Medical tablet morning. Branch levothyroxi 2021-0 Yes [id number] 175ug Take 1 Univers ne 8-27 tablet by ity of (UNITHROID) 00:00: mouth [place] 175 mcg 00 every Medical tablet morning. Branch levothyroxi 2021-0 Yes [id number] 175ug Take 1 Univers ne 8-27 tablet by ity of (UNITHROID) 00:00: mouth [place] 175 mcg 00 every Medical tablet morning. Branch ondansetron 2021-0 Yes [id number] 8mg Take 2 Univers 4 mg 8-26 tablets by ity of disintegrat 00:00: mouth [place] ing tablet 00 every 8 Medica l (eight) Branch hours as needed for Nausea and Vomiting (N/V) for up to 20 doses. oxyCODONE 5 2021-0 Yes [id number] 5mg Take 1 Univ ers mg 8-26 tablet by ity of immediate 00:00: mouth [place] release 00 every 4 Medical tablet (four) Branch hours as needed for Pain (scale 7-10) for up to 5 doses. Indication s: acute pain ondansetron 2021-0 Yes [id number] 8mg Take 2 Univers 4 mg 8-26 tablets by ity of disintegrat 00:00: mouth [place] ing tablet 00 every 8 Medica l (eight) Branch hours as needed for Nausea and Vomiting (N/V) for up to 20 doses. oxyCODONE 5 2021-0 Yes [id number] 5mg Take 1 Univ ers mg 8-26 tablet by ity of immediate 00:00: mouth [place] release 00 every 4 Medical tablet (four) Branch hours as needed for Pain (scale 7-10) for up to 5 doses. Indication s: acute pain ondansetron 2021-0 Yes [id number] 8mg Take 2 Univers 4 mg 8-26 tablets by ity of disintegrat 00:00: mouth [place] ing tablet 00 every 8 Medica l (eight) Branch hours as needed for Nausea and Vomiting (N/V) for up to 20 doses. oxyCODONE 5 2-0 Yes [id number] 5mg Take 1 Univ ers mg 8-26 tablet by ity of immediate 00:00: mouth [place] release 00 every 4 Medical tablet (four) Branch hours as needed for Pain (scale 7-10) for up to 5 doses. Indication s: acute pain ondansetron 2-0 Yes [id number] 8mg Take 2 Univers 4 mg 8-26 tablets by ity of disintegrat 00:00: mouth [place] ing tablet 00 every 8 Medica l (eight) Branch hours as needed for Nausea and Vomiting (N/V) for up to 20 doses. oxyCODONE 5 2021-0 Yes [id number] 5mg Take 1 Univ ers mg 8-26 tablet by ity of immediate 00:00: mouth [place] release 00 every 4 Medical tablet (four) Branch hours as needed for Pain (scale 7-10) for up to 5 doses. Indication s: acute pain ondansetron 2-0 Yes [id number] 8mg Take 2 Univers 4 mg 8-26 tablets by ity of disintegrat 00:00: mouth [place] ing tablet 00 every 8 Medica l (eight) Branch hours as needed for Nausea and Vomiting (N/V) for up to 20 doses. oxyCODONE 5 2021-0 Yes [id number] 5mg Take 1 Univ ers mg 8-26 tablet by ity of immediate 00:00: mouth [place] release 00 every 4 Medical tablet (four) Branch hours as needed for Pain (scale 7-10) for up to 5 doses. Indication s: acute pain ondansetron 2022-0 Yes [id number] 8mg Take 2 Univers 4 mg 8-26 tablets by ity of disintegrat 00:00: mouth [place] ing tablet 00 every 8 Medica l (eight) Branch hours as needed for Nausea and Vomiting (N/V) for up to 20 doses. oxyCODONE 5 2-0 Yes [id number] 5mg Take 1 Univ ers mg 8-26 tablet by ity of immediate 00:00: mouth [place] release 00 every 4 Medical tablet (four) Branch hours as needed for Pain (scale 7-10) for up to 5 doses. Indication s: acute pain ondansetron 2022-0 Yes [id number] 8mg Take 2 Univers 4 mg 8-26 tablets by ity of disintegrat 00:00: mouth [place] ing tablet 00 every 8 Medica l (eight) Branch hours as needed for Nausea and Vomiting (N/V) for up to 20 doses. oxyCODONE 5 2021-0 Yes [id number] 5mg Take 1 Univ ers mg 8-26 tablet by ity of immediate 00:00: mouth [place] release 00 every 4 Medical tablet (four) Branch hours as needed for Pain (scale 7-10) for up to 5 doses. Indication s: acute pain ondansetron 2-0 Yes [id number] 8mg Take 2 Univers 4 mg 8-26 tablets by ity of disintegrat 00:00: mouth [place] ing tablet 00 every 8 Medica l (eight) Branch hours as needed for Nausea and Vomiting (N/V) for up to 20 doses. oxyCODONE 5 2021-0 Yes [id number] 5mg Take 1 Univ ers mg 8-26 tablet by ity of immediate 00:00: mouth [place] release 00 every 4 Medical tablet (four) Branch hours as needed for Pain (scale 7-10) for up to 5 doses. Indication s: acute pain ondansetron 2021-0 Yes [id number] 8mg Take 2 Univers 4 mg 8-26 tablets by ity of disintegrat 00:00: mouth [place] ing tablet 00 every 8 Medica l (eight) Branch hours as needed for Nausea and Vomiting (N/V) for up to 20 doses. oxyCODONE 5 2021-0 Yes [id number] 5mg Take 1 Univ ers mg 8-26 tablet by ity of immediate 00:00: mouth [place] release 00 every 4 Medical tablet (four) Branch hours as needed for Pain (scale 7-10) for up to 5 doses. Indication s: acute pain ondansetron 2-0 Yes [id number] 8mg Take 2 Univers 4 mg 8-26 tablets by ity of disintegrat 00:00: mouth [place] ing tablet 00 every 8 Medica l (eight) Branch hours as needed for Nausea and Vomiting (N/V) for up to 20 doses. oxyCODONE 5 2021-0 Yes [id number] 5mg Take 1 Univ ers mg 8-26 tablet by ity of immediate 00:00: mouth [place] release 00 every 4 Medical tablet (four) Branch hours as needed for Pain (scale 7-10) for up to 5 doses. Indication s: acute pain ondansetron 2021-0 Yes [id number] 8mg Take 2 Univers 4 mg 8-26 tablets by ity of disintegrat 00:00: mouth [place] ing tablet 00 every 8 Medica l (eight) Branch hours as needed for Nausea and Vomiting (N/V) for up to 20 doses. oxyCODONE 5 2021-0 Yes [id number] 5mg Take 1 Univ ers mg 8-26 tablet by ity of immediate 00:00: mouth [place] release 00 every 4 Medical tablet (four) Branch hours as needed for Pain (scale 7-10) for up to 5 doses. Indication s: acute pain acetaminoph 2021- No [id number] 1000mg Take 2 Univers en 500 mg 8- 09-17 tablets by ity of tablet 00:00: 04:59 mouth [place] 00 :00 every 8 Medical (eight) Branch hours for 21 days. methocarbam 2- No [id number] 1000mg Take 2 Univers oL 500 mg 8- 09-17 tablets by ity of tablet 00:00: 04:59 mouth 4 [place] 00 :00 (four) Medical times Branch daily for 21 days. acetaminoph 2021-2021- No [id number] 1000mg Take 2 Univers en 500 mg 8- 09-17 tablets by ity of tablet 00:00: 04:59 mouth [place] 00 :00 every 8 Medical (eight) Branch hours for 21 days. methocarbam 2021-2- No [id number] 1000mg Take 2 Univers oL 500 mg 8-26 09-17 tablets by ity of tablet 00:00: 04:59 mouth 4 [place] 00 :00 (four) Medical times Branch daily for 21 days. acetaminoph 2021-0 2- No [id number] 1000mg Take 2 Univers en 500 mg 8-26 09-17 tablets by ity of tablet 00:00: 04:59 mouth [place] 00 :00 every 8 Medical (eight) Branch hours for 21 days. methocarbam 2021-0 2- No [id number] 1000mg Take 2 Univers oL 500 mg 8-26 09-17 tablets by ity of tablet 00:00: 04:59 mouth 4 [place] 00 :00 (four) Medical times Branch daily for 21 days. celecoxib 2021- No [id number] 200mg Take 1 Univers 200 mg 01-06-10 capsule by ity of capsule 00:00: 04:59 mouth in [place] 00 :00 the Medical morning Branch and 1 capsule in the evening. Take with meals. Do all this for 14 days. gabapentin 2021- No [id number] 300mg Take 1 Univers 300 mg 01-0610 capsule by ity of capsule 00:00: 04:59 mouth [place] 00 :00 every 8 Medical (eight) Branch hours for 14 days. celecoxib 2021- No [id number] 200mg Take 1 Univers 200 mg 01-06 capsule by ity of capsule 00:00: 04:59 mouth in [place] 00 :00 the Medical morning Branch and 1 capsule in the evening. Take with meals. Do all this for 14 days. gabapentin 2021- No [id number] 300mg Take 1 Univers 300 mg 01-06 capsule by ity of capsule 00:00: 04:59 mouth [place] 00 :00 every 8 Medical (eight) Branch hours for 14 days. celecoxib 2021- No [id number] 200mg Take 1 Univers 200 mg 01-06 capsule by ity of capsule 00:00: 04:59 mouth in [place] 00 :00 the Medical morning Branch and 1 capsule in the evening. Take with meals. Do all this for 14 days. gabapentin 2021- No [id number] 300mg Take 1 Univers 300 mg 01-06 capsule by ity of capsule 00:00: 04:59 mouth [place] 00 :00 every 8 Medical (eight) Branch hours for 14 days. amoxicillin 2021- No [id number] 1{tbl} Take 1 Univers -clavulanat 01-06 tablet by it y of e 00:00: 04:59 mouth in [place] (AUGMENTIN) 00 :00 the Medical 875-125 mg morning Branch per tablet and 1 tablet in the evening. Do all this for 6 days. UNITHROID 2021- No Univers 175 mcg 11-15 ity of tablet 00:00: 00:00 [place] 00 :00 Medical Branch UNITHROID 2021- No Univers 175 mcg 11-15 ity of tablet 00:00: 00:00 [place] 00 :00 Medical Branch metroNIDAZO 2021- No TAKE ONE U nivers LE 500 mg 11-08 (1) ity of tablet 00:00: 00:00 TABLET(S) [place] 00 :00 BY MOUTH Medical EVERY [place] EIGHT HOURS FOR 10 DAYS. metroNIDAZO 2021-0 2021- No TAKE ONE U nivers LE 500 mg 11-08 (1) ity of tablet 00:00: 00:00 TABLET(S) [place] 00 :[address] [facility] EVERY [place] EIGHT HOURS FOR 10 DAYS. naproxen 2021- No Univers 500 mg 10-25 ity of tablet 00:00: 00:00 [place] 00 :00 Medical Branch ondansetron 2021- No Unive rs 4 mg tablet 10-25 ity of 00:00: 00:00 [place] 00 :00 Medical Branch naproxen 2021-2021- No Univers 500 mg 10-25 ity of tablet 00:00: 00:00 [place] 00 :00 Medical Branch ondansetron 2021- No Unive rs 4 mg tablet 10-25 ity of 00:00: 00:00 [place] 00 :00 [facility] Immunizations Ordered Filled Immunization Date Status Comments [facility] e Immunization Name Name TDAP 2014-10-21 Completed University of 00:00:[address] [facility] TDAP 2014-10-21 Completed University of 00:00:[address] [facility] TDAP 2014-10-21 Completed University of 00:00:[address] [facility] TDAP 2014-10-21 Completed University of 00:00:[address] [facility] TDAP 2014-10-21 Completed University of 00:00:[address] [facility] TDAP 2014-10-21 Completed University of 00:00:[address] [facility] TDAP 2014-10-21 Completed University of 00:00:[address] [facility] TDAP 2014-10-21 Completed University of 00:00:[address] [facility] TDAP 2014-10-21 Completed University of 00:00:[address] [facility] TDAP 2014-10-21 Completed University of 00:00:[address] [facility] TDAP 2014-10-21 Completed University of 00:00:[address] [facility] TDAP 2014-10-21 Completed University 00:00:00 [place] [facility] TDAP 2014-10-21 Completed University 00:00:[address] [facility] Vital Signs Vital Name Observation Time Observation Value Comments Source Systolic blood 2022-03-22 22:35:00 172 mm[Hg] Univer sity of pressure [place] [facility] Diastolic blood 2022-03-22 22:35:00 110 mm[Hg] Unive rsity of pressure [place] [facility] Heart rate 2022-03-22 22:35:00 97 /min Universi ty of [place] [facility] Body temperature 2022-03-22 22:35:00 36.83 Nela Univ ersity of [place] [facility] Respiratory rate 2022-03-22 22:35:00 18 /min Univ ersity of [place] [facility] Body weight 2022-03-22 22:35:00 115.667 kg Universi ty of [place] [facility] BMI 2022-03-22 22:35:00 48.18 kg/m2 Universi ty of [place] [facility] Oxygen saturation in 2022-03-22 22:35:00 99 /min University of Arterial blood by [place] Vital Vio keith Pulse oximetry Branch Systolic blood 2022-02-15 20:12:00 129 mm[Hg] Univer sity of pressure [place] [facility] Diastolic blood 2022-02-15 20:12:00 86 mm[Hg] Unive rsity of pressure [place] [facility] Heart rate 2022-02-15 20:12:00 78 /min Universi ty of [place] [facility] Body temperature 2022-02-15 20:12:00 37.06 Nela Univ ersity of [place] [facility] Respiratory rate 2022-02-15 20:12:00 18 /min Univ ersity of [place] [facility] Body weight 2022-02-15 20:12:00 117.482 kg Universi ty of [place] [facility] BMI 2022-02-15 20:12:00 48.94 kg/m2 Universi ty of [place] [facility] Oxygen saturation in 2022-02-15 20:12:00 96 /min University of Arterial blood by [place] Vital Vio keith Pulse oximetry Branch Systolic blood 2022-01-13 15:19:00 128 mm[Hg] Univer sity of pressure [place] [facility] Diastolic blood 2022-01-13 15:19:00 86 mm[Hg] Unive rsity of pressure [place] [facility] Heart rate 2022-01-13 15:19:00 85 /min Universi ty of [place] [facility] Body temperature 2022-01-13 15:19:00 36 Nela Univ ersity of [place] [facility] Respiratory rate 2022-01-13 15:19:00 16 /min Univ ersity of [place] [facility] Body height 2022-01-13 15:19:00 154.9 cm Universi ty of [place] [facility] Body weight 2022-01-13 15:19:00 115.667 kg Universi ty of [place] [facility] BMI 2022-01-13 15:19:00 48.18 kg/m2 Universi ty of [place] [facility] Systolic blood 2021-12-23 16:33:00 167 mm[Hg] Univer sity of pressure [place] [facility] Diastolic blood 2021-12-23 16:33:00 108 mm[Hg] Unive rsity of pressure [place] [facility] Heart rate 2021-12-23 16:32:00 93 /min Universi ty of [place] [facility] Body temperature 2021-12-23 16:32:00 36.89 Nela [facility] ersity of [place] [facility] Body height 2021-12-23 16:32:00 154.9 cm Universi ty of [place] [facility] Body weight 2021-12-23 16:32:00 119.704 kg Universi ty of [place] [facility] BMI 2021-12-23 16:32:00 49.86 kg/m2 Universi ty of [place] [facility] Oxygen saturation in 2021-12-23 16:32:00 99 /min [facility] Arterial blood by [facility] Pulse oximetry Branch Procedures Procedure Date / Time Performing Clinician Source Performed CONSENT/REFUSAL FOR 2022-03-22 22:27:35 Doctor Unassigned, No [facility] DIAGNOSIS AND TREATMENT Name Medical Branch ASSIGNMENT OF BENEFITS 2022-02-15 20:02:20 Doctor Unassigned, No [facility] Name Medical Branch AUTHORIZATION FOR 2022-01-17 05:01:00 Doctor Unassigned, No [facility] RELEASE OF PHI Name Medical Branch Encounters Start End Encounter Admission Attending Care Care Encounter Source Date/Time Date/Time Type Type Clinicians Facility Department ID 2021-12-20 Outpatient SYSTEM, [facility] [id number] 10:51:52 PROVIDER Thomas o n 2021-12-19 Inpatient ROSEY [facility] DAHLIA [id number] Univers 15:29:09 LIDYA itcatrachita [facility] 2022-03-22 2022-03-22 Emergency X SOLA, [facility] ERT [id number] Univers 16:36:00 18:20:00 ALONZO it y [facility] 2022-03-22 2022-03-22 Emergency [place], [facility] [id number] Univers 16:36:00 18:20:00 Alonzo MANZANARES [id number] ity [facility] [id number] [place] [id number] [facility] 084 Branch 2022-03-22 2022-03-[address] [facility] [id number] Univers 17:00:00 17:00:00 ATTENDING [facility] 2022-02-20 2022-02-20 Outpatient R [facility] [id number] Univers 14:30:00 14:30:00 ity [facility] 2022-02-20 2022-02-20 Telephone Pgy3 UNIVERSIT [id number] Univers 00:00:00 00:00:00 Y HEALTH [id number] i ty of [facility]IN[facility]2.7.2.686 [facility] [id number] [facility] 113 Branch 2022-02-15 2022-02-15 [facility] [id number] Univers 15:15:00 15:30:00 Visit [facility] [id number] it y of CANC[place] 4.2.7.2.686 [place] [facility] [id number] Med ical [facility] 408 Branch 2022-02-15 2022-02-15 [facility] [id number] Univers 15:15:00 15:15:00 LIDYA [facility] 2022-02-15 2022-02-15 Orders Doctor MITCHELL [id number] Univers 00:00:00 00:00:00 Only Unassigned, ZAID [id number] ity of [place] [facility] 4.2.7.2.686 Feng as [id number] [facility] 009 [place] 2022-02-01 2022-02-01 Telephone RUDDY Villatoro [id number] Univers 00:00:00 00:00:00 Lopez Catrachita [facility] [id number] i ty of CLINICS 4.2.7.2.686 [place] [id number] [place] [id number] [place] 2022-01-30 2022-01-30 Telemedici Shauna [facility] [id number] Univers 11:45:00 12:00:00 [facility] [id number] [facility] of [place] [id number] [place] [id number] [address] 2022-01-30 2022-01-30 [facility]patient [facility] [id number] Univers 11:45:00 [facility]:45:[facility] 2022-01-17 2022-01-17 Orders Doctor PAULA [id number] Univers 00:00:00 00:00:00 Only Unassigned, ZAID [id number] ity of [place] [facility] 4.2.7.2.686 Feng as [id number] [address] 2022-01-13 2022-01-13 Office Rosey [facility] [id number] Univers 10:00:00 10:15:00 Visit [facility] [id number] i ty of CLINICS 4.2.7.2.686 [place] [id number] [facility] 408 [place] 2022-01-13 2022-01-13 [facility] [id number] Univers 10:00:00 10:00:00 [facility] 2022-01-09 2022-01-09 Transition AMMON [place] [id number] Univers 00:00:00 00:00:00 of Care [place]a [place] [id number] ity of [id number] [id number] [facility] 403 Branch 2022-01-02 2022-01-06 Inpatient R ROSEY [facility] DAHLIA [id number] Univers 11:05:00 16:30:00 LIDYA solis [facility] 2022-01-02 2022-01-06 [facility] RoseyAUDIE jadeE 1.2.840.114 [id number] Univers 11:05:00 16:30:00 Encounter Lidya MAR 350.1.13.10 ity [facility] 4.2.7.2.686 Feng as [phone] [facility] [address] 2022-01-02 2022-01-02 Surgery LUCILA Currie 1.2.840.114 [id number] Univers 12:17:00 21:46:00 Lidya MAR 350.1.13.10 it y [facility] 4.2.7.2.686 Feng as [phone] [facility] [address] 2021-12-30 2021-12-30 [facility] 1.2.840.114 [id number] Univers 13:00:00 23:59:00 Encounter Lopez M SPECIALTY 350.1.13.10 [place] [phone] Nh luis felipe JENNINGS [address] [facility] 2021-12-30 2021-12-30 Laboratory Only, Lcc Test [facility] 1.2.840. 114 [id number] Univers 14:15:00 14:30:00 Only Lidya Currie SPECIALTY 350.1.13.10 [place] [phone] Nh luis felipe JENNINGS [address] [facility] 2021-12-30 2021-12-30 Outpatient R ROSEY [facility] [id number] Univers 14:15:00 14:15:00 LIDYA solis [facility] 2021-12-30 2021-12-30 Telephone CORBIN Currie 1.2.840.114 [id number] Univers 00:00:00 00:00:00 Lidya Bradley HEALTH 350.1.13.10 i ty of [facility] [place] [phone] [address] 2021-12-27 2021-12-27 Outpatient R ROSEY [facility] [id number] Univers 11:30:00 11:30:00 LIDYA solis [facility] 2021-12-26 2021-12-26 Telephone CORBIN Currie 1.2.840.114 [id number] Univers 00:00:00 00:00:00 Lidya Bradley HEALTH 350.1.13.10 i [place] [phone] [address] 2021-12-23 2021-12-23 General Handling Supervisor [facility]ERSIT 1.2.840.114 [id number] Univers 13:00:00 13:15:00 Visit Lidya Currie HEALTH 350.1.13.10 [place] [phone] [address] 2021-12-23 2021-12-23 Outpatient R ROSEY [facility] [id number] Univers 13:00:00 13:00:00 LIDYA solis [facility] 2021-12-23 2021-12-23 Office CORBIN Currie 1.2.221.538 [id number] Univers 11:15:00 12:55:56 Visit Lidya Bradley HEALTH 350.1.13.10 i [place] [id number] [address] 2021-12-23 2021-12-23 Outpatient R ROSEY [facility] [id number] Univers 11:15:00 12:55:56 LIDYA solis [facility] 2021-12-23 2021-12-23 Outpatient R ROSEY [facility] [id number] Univers 11:15:00 11:15:00 LIDYA solis [facility] 2021-12-23 2021-12-23 Outpatient R ROSEY [facility] [id number] Univers 11:15:00 11:15:00 LIDYA catrachita [facility] 2021-12-23 2021-12-23 Pablito MITCHELL 1.2.840.114 [id number] Univers 00:00:00 00:00:00 Only Unassigned, ZAID 350.1.13.10 ity of [place] [facility] 4.2.7.2.686 Feng as [phone] [facility] [address] 2021-12-23 2021-12-23 Telephone CORBIN Villatoro 1.2.840.11 [id number] Univers 00:00:00 00:00:00 Lopezgarrett Bradley [facility] 350.1.13.10 i ty of CL[place] [phone] [facility] [address] 2021-12-19 2021-12-19 Office Shauna [facility] 1.2.840.114 [id number] Univers 10:00:00 11:00:00 Visit Lopezgarrett Bradley [facility] 350.1.13.10 i ty of CL[place] [phone] [facility] [address] [place] 2021-12-19 2021-12-19 Outpatient [facility] [id number] Univers 10:00:00 10:00:00 [facility] ity [facility] 2021-12-19 2021-12-19 Outpatient R [facility] [id number] Univers 10:00:00 10:00:00 [facility] ity [facility] 2021-12-19 2021-12-19 Outpatient R [facility] [id number] Univers 10:00:00 10:00:00 [facility] 2021-12-19 2021-12-19 Orders Doctor MITCHELL 1.2.840.114 [id number] Univers 00:00:00 00:00:00 Only Unassigned, ZAID 350.1.13.10 ity of [place] [facility] 4.2.7.2.686 Feng as [phone] [facility] [address] 2021-12-19 2021-12-19 Prep For [facility] 1.2.840.114 [id number] Univers 00:00:00 00:00:00 Surgery [facility] 350.1.13.10 it y of [place] - [phone] [facility] [address] 2021-12-08 2021-12-08 Outpatient R RADIOLOGY [facility] [id number] Univers 00:00:00 00:00:00 ity [facility] 2021-12-08 2021-12-08 Outpatient R RADIOLOGY [facility] [id number] Univers 00:00:00 00:00:00 ity [facility] 2021-12-06 2021-12-06 [facility] 1.2.840.114 [id number] Univers 00:00:00 00:00:00 Secure Msg Lidya HEALTH 350.1.13.10 ity of CANCER 4.2.7.2.686 [facility] [phone] [facility] [address] 2021-11-30 2021-11-30 Telephone RUDDY Currie 1.2.840.114 [id number] Univers 00:00:00 00:00:00 Lidya Y HEALTH 350.1.13.10 i ty of CLINICS 4.2.7.2.686 [facility] [id number] [facility] [address] 2021-11-29 2021-11-29 [facility] [id number] Univers 16:16:26 23:59:00 [facility] 2021-11-29 2021-11-29 [facility] 1.2.840.114 [id number] Univers 16:16:26 23:59:00 Encounter Lidya HEALTH 350.1.13.10 ity of CLEAR 4.2.7.2.686 [facility] [phone] [facility] [address] (CLC) 2021-11-29 2021-11-29 [facility] [id number] Univers 16:16:26 23:59:00 LIDYA irma [facility] 2021-11-29 2021-11-29 [facility] [id number] Univers 16:16:26 23:59:00 LIDYA solis [facility] 2021-11-25 2021-11-25 Office Rosey [facility] 1.2.285.519 [id number] Univers 11:45:00 13:08:54 Visit [facility] 350.1.13.10 i ty of [place] [phone] [address] 2021-11-25 2021-11-25 Outpatient R ROSEY, [facility] [id number] Univers 11:45:00 13:08:54 LIDYA solis [facility] 2021-11-25 2021-11-25 Outpatient R ROSEY [facility] [id number] Univers 11:45:00 13:08:54 LIDYA solis [facility] 2021-11-25 2021-11-25 Outpatient R ROSEY [facility] [id number] Univers 11:45:00 13:08:54 LIDYA solis [facility] 2021-11-25 2021-11-25 Outpatient R ROSEY [facility] [id number] Univers 11:45:00 11:45:00 LIDYA solis [facility] 2021-11-25 2021-11-25 Outpatient R ROSEY [facility] [id number] Univers 11:45:00 11:45:00 LIDYA solis [facility] 2021-11-21 2021-11-21 Outpatient R ROSEY [facility] [id number] Univers 12:55:00 23:59:00 LIDYA breanacatrachtia [facility] 2021-11-21 2021-11-21 [facility] 1.2.840.114 [id number] Univers 12:55:00 23:59:00 Encounter Lidya SPECIALTY 350.1.13.10 [place] [id number] Nh adarshignacio [address] 2021-11-21 2021-11-21 Outpatient R ROSEY [facility] [id number] Univers 12:55:00 23:59:00 LIDYAISAIAS solis [facility] 2021-11-21 2021-11-21 Outpatient R ROSEY [facility] [id number] Univers 12:55:00 23:59:00 LIDYA solis [facility] 2021-11-21 2021-11-21 Outpatient R ROSEY, [facility] [id number] Univers 00:00:00 00:00:00 LIDYA ity of [facility] 2021-11-09 2021-11-09 Transition Praveen, 1.2.840.8 [id number] Univers 00:00:00 00:00:00 of Care Yaa M 70921.1.1 ity of 3.104.2.7 [place] .3.073559 Medica l .[address] [place] 2021-10-26 2021-11-08 Inpatient X ROSEY, [facility] DAHLIA [id number] Univers 07:03:00 12:45:00 LIDYA ity [facility] 2021-10-26 2021-11-08 [facility] Alejandro Camarena 1.2.840.1 10 [id number] Univers 07:03:00 12:45:00 Encounter Eulogio Alva 56199.1.1 ity of [place] Georgette G 3.104.2.7 [place] Lidya Currie .3.779246 Medical .[address] [place] 2021-10-26 2021-11-08 Inpatient X ROSEY, [facility] DAHLIA [id number] Univers 07:03:00 12:45:00 LIDYA ity [facility] 2021-10-26 2021-10-26 Travel 1.2.840.1 [id number] [id number] Univers 00:00:00 00:00:00 09571.1.1 350.1.13.10 ity of 3.104.2.7 [place].3.698 [place] .3.28[place]26 084.8 Medica l .[address] [place] 2021-03-01 2021-03-01 Transition Ammon Holly 1.2.840.114 [id number] Univers 00:00:00 00:00:00 of Care Monatj [place] 350.1.13.10 ity of [place] [id number] [facility] [address] [place] 2021-02-25 2021-02-28 [facility] Fuad Love [facility] 1.2.840.1 14 [id number] Univers 09:14:00 15:00:00 Encounter Miguel Mckeon 350.1.13.10 ity [place] 4.2.7.2.686 [facility] [phone] [place] [id number] 2021-02-25 2021-02-25 Emergency X [facility] ERT [id number] Univers 08:56:00 08:56:00 ity [facility] Results Test Description Test Time Test Comments Results Result Comments Source TSH, THIRD GENERATION 2021-11-12 09:20:05 Test Item Value Reference Range Interpretation Comme nts TSH, THIRD GENERATION (test 9.750 UIU/ML 0.400-4.100 H UNLESS OTHERWISE INDICATED, code = 2821) ALL TESTING PER FORMED ATCLINICAL PATH [facility], [place] [id number] DIETITIAN CHIEF: Ron ADAMS [id number] [facility] [place]. [id number] HEMOGLOBIN [id number] 05:36:03 Test Item Value Reference Range Interpretation Comments HEMOGLOBIN A1c (test code = 67351) 6.1 % 4.2-5.6 H LIPID [id number] 04:47:01 Test Item Value Reference Range Interpretation Comments CHOLESTEROL (test 137 MG/DL <200 code = 2210) TRIGLYCERIDES (test 101 MG/DL <150 code = 2232) HDL CHOLESTEROL (test 35 MG/DL >39 L code = 2220) CALC LDL CHOL (test 83 MG/DL <100 NOTE: C ALCULATED LDL code = 2237) IS BASED ON KATHE-MCGRATH METHOD WHICHINCLUDES ADJUSTABLE TRIGLYCERIDE:VL DL CHOLESTEROL RAT IO.THIS FACTOR VARIES B Y MEASURED TRIGLY CERIDE AND NON-HDLCHOL ESTEROL CONCENTRATIONS WITH INCREASED CALCU LATED LDL SEENIN HIGH ER TRIGLYCERIDE OR LOWER NON-HDL SPECIME NS. FOR MOREINFORMATION , SEE CLIENT ANNOUNCE MENT AT [email or web address] RISK RATIO LDL/HDL 2.37 RATIO <3.22 (test code = 2238) COMPREHENSIVE METABOLIC [id number] 04:47:01 Test Item Value Reference Range Interpretation Comments GLUCOSE (test code = 113 MG/DL 70-99 H 2216) BUN (test code = 12 MG/DL 6-20 2207) CREATININE (test 0.68 MG/DL 0.60-1.30 code = 2213) eGFR (2020 CKD-EPI) 119 >60 (test code = 66480) ML/MIN/1.73 CALC BUN/CREAT (test 18 RATIO 6-28 code = 2235) SODIUM (test code = 144 MEQ/L 438-107 7182) POTASSIUM (test code 4.7 MEQ/L 3.5-5.4 = 2227) CHLORIDE (test code 104 MEQ/L 95-107 = 2214) CARBON DIOXIDE (test 25 MEQ/L 19-31 code = 2205) CALCIUM (test code = 9.8 MG/DL 8.5-10.5 2208) PROTEIN, TOTAL (test 8.4 G/DL 6.1-8.3 H code = 2228) ALBUMIN (test code = 4.5 G/DL 3.5-5.2 2200) CALC GLOBULIN (test 3.9 G/DL 1.9-3.7 H code = 2239) CALC A/G RATIO (test 1.2 RATIO 1.0-2.6 code = 2233) BILIRUBIN, TOTAL 0.3 MG/DL See_Comment [Automated message] (test code = 2206) The syste m which generated this result transmit cholo reference range : <=1.2. The refe rence range was not u sed to interpret th is result as normal/abnormal . ALKALINE PHOSPHATASE 121 U/L 40-114 H (test code = 2203) AST (test code = 15 U/L 9-40 2217) ALT (test code = 15 U/L 5-40 2218) CBC W/AUTO DIFF WITH [id number] 04:27:47 Test Item Value Reference Range Interpretation Comments WBC (test code = 7.2 K/UL 3.5-11.0 1001) RBC (test code = 4.34 M/UL 3.80-5.40 1002) HEMOGLOBIN (test code 12.2 G/DL 11.5-15.5 = 1003) HEMATOCRIT (test code 38.2 % 34.0-45.0 = 1004) MCV (test code = 88.0 fL 80.0-99.0 1005) MCH (test code = 28.1 PG 25.0-33.0 1006) MCHC (test code = 31.9 G/DL 31.0-36.0 1007) RDW (test code = 13.3 % 11.5-15.0 1038) NEUTROPHILS (test 66.0 % code = 1008) LYMPHOCYTES (test 24.7 % code = 1010) MONOCYTES (test code 6.5 % = 1011) EOSINOPHILS (test 1.9 % code = 1012) BASOPHILS (test code 0.8 % = 1013) IMMATURE GRANULOCYTES 0.1 % (test code = 1036) NUCLEATED RBCS (test 0.0 /100 WBC'S See_Comment [Aut omated code = 1065) message] The sy stem which generated this result transmitted reference range : 0.0. The refere nce range was not u sed to interpret th is result as normal/abnormal . PLATELET COUNT (test 637 K/UL 130-400 H code = 1015) ABSOLUTE NEUTROPHILS 4.76 K/UL 1.50-7.50 (test code = 1066) ABSOLUTE LYMPHOCYTES 1.78 K/UL 1.00-4.00 (test code = 1067) ABSOLUTE MONOCYTES 0.47 K/UL 0.20-1.00 (test code = 1068) ABSOLUTE EOSINOPHILS 0.14 K/UL 0.00-0.50 (test code = 1040) ABSOLUTE BASOPHILS 0.06 K/UL 0.00-0.20 (test code = 1069) ABS IMMATURE 0.01 K/UL 0.00-0.10 GRANULOCYTES (test code = 1020) ABS NUCLEATED RBCS 0.00 K/UL 0.00-0.11 (test code = 66423) TSH, THIRD [id number] 04:17:44 Test Item Value Reference Range Interpretation Comments TSH, THIRD GENERATION (test 29.000 UIU/ML 0.400-4.100 H code = 2821) FREE T4 (THYROXINE)2021-09-13 04:17:44 Test Item Value Reference Range Interpretation Comments FREE T4 (THYROXINE) (test code = 0.64 NG/DL 0.80-1.90 L 2823) FREE [id number] 04:17:44 Test Item Value Reference Range Interpretation Comments FREE T3 (test code 2.2 PG/ML 2.2-4.2 UNLESS O THERWISE = 4273) INDICATED, ALL TESTING PERFORMED ATCLI NICAL PATHOLOGY LABOR [facility] [address] [facility] [place] [address] CONY BUSTILLO DIRECTOR: POONAM ROSS M.D. CLIA NUMBER [id number] CAP ACCREDITATION N O. [id number] FSH + LH [id number] 05:55:55 Test Item Value Reference Range Interpretation Comments FOLLICLE STIM HORMONE 6.1 IU/L SEE BELOW EXPECTED VALUES (test code = 2700) FOR FSH F OR FEMALES >17 YEARS M ALES FEMALES >=18 YE ARS 1.5-12.4 IU/L F OLLICULAR 3.5-12.5 IU/L MID-CYCLE PEAK 4.7-21.5 I U/L LUTEAL PHASE 1. 7-7.7 IU/L POSTMENOPA USAL 25.8-134.8 IU/L LUTEINIZING HORMONE 6.8 IU/L SEE BELOW EXPECTED VALUES (test code = 2776) FOR LH FO R FEMALES >17 YEARS M ALES FEMALES >=18 YE ARS 1.8-8.6 IU/L FO LLICULAR 2.4-12.6 IU/L M ID-CYCLE PEAK 14.0-95.6 IU/L LUTEAL PHASE 1. 0-11.4 IU/L POSTMENOPA USAL 7.7-58.5 IU/L TSH, THIRD [id number] 05:55:55 Test Item Value Reference Range Interpretation Comments TSH, THIRD 23.400 UIU/ML 0.400-4.100 H UNLESS OTHERW ISE GENERATION (test INDICATED, ALL code = 2821) TESTING PERFORM ED ATCLINICAL PATH OLOGY LABORATORIES, [place]. [address] [place] [address] CONY BUSTILLO DIRECTOR: POONAM ROSS M.D. CLIA NUMBER [id number] CAP ACCREDITATION N O. [id number] COMPREHENSIVE METABOLIC [id number] 04:24:03 Test Item Value Reference Range Interpretation Comments GLUCOSE (test code = 125 MG/DL 70-99 H 2216) BUN (test code = 9 MG/DL -2207) CREATININE (test 0.63 MG/DL 0.60-1.30 code = 2214) eGFR (2020 CKD-EPI) 122 >60 (test code = 04348) ML/MIN/1.73 CALC BUN/CREAT (test 14 RATIO 6-28 code = 2235) SODIUM (test code = 139 MEQ/L 595-742 3095) POTASSIUM (test code 3.5 MEQ/L 3.5-5.4 = 2227) CHLORIDE (test code 101 MEQ/L 95-107 = 2214) CARBON DIOXIDE (test 21 MEQ/L 19-31 code = 220) CALCIUM (test code = 9.6 MG/DL 8.5-10.5 2208) PROTEIN, TOTAL (test 7.7 G/DL 6.1-8.3 code = 222) ALBUMIN (test code = 4.5 G/DL 3.5-5.2 2200) CALC GLOBULIN (test 3.2 G/DL 1.9-3.7 code = 224) CALC A/G RATIO (test 1.4 RATIO 1.0-2.6 code = 2233) BILIRUBIN, TOTAL 0.5 MG/DL See_Comment [Automated message] (test code = 220) The syste m which generated this result transmit cholo reference range : <=1.2. The refe rence range was not u sed to interpret th is result as normal/abnormal . ALKALINE PHOSPHATASE 84 U/L 40-114 (test code = 2204) AST (test code = 18 U/L 9-40 2217) ALT (test code = 17 U/L 5-40 2218) LIPID [id number] 04:24:03 Test Item Value Reference Range Interpretation Comments CHOLESTEROL (test 165 MG/DL <200 code = 2210) TRIGLYCERIDES (test 104 MG/DL <150 code = 2232) HDL CHOLESTEROL (test 47 MG/DL >39 code = 2220) CALC LDL CHOL (test 98 MG/DL <100 NOTE: C ALCULATED LDL code = 2237) IS BASED ON KATHE-MCGRATH METHOD WHICHINCLUDES ADJUSTABLE TRIGLYCERIDE:VL DL CHOLESTEROL RAT IO.THIS FACTOR VARIES B Y MEASURED TRIGLY CERIDE AND NON-HDLCHOL ESTEROL CONCENTRATIONS WITH INCREASED CALCU LATED LDL SEENIN HIGH ER TRIGLYCERIDE OR LOWER NON-HDL SPECIME NS. FOR MOREINFORMATION , SEE CLIENT ANNOUNCE MENT AT [email or web address] RISK RATIO LDL/HDL 2.09 RATIO <3.22 UNLESS O THERWISE (test code = 2238) INDICATED , ALL TESTING PERFORMED [facility] PATHOLOGY [facility]ATORIES, [facility]. [address] [facility] [place] [address] [facility] DIRECTOR: POONAM ROSS M.D. CLIA NUMBER [id number] CAP ACCREDITATION N O. [id number] CBC W/AUTO DIFF WITH [id number] 02:21:34 Test Item Value Reference Range Interpretation Comments WBC (test code = 9.1 K/UL 3.5-11.0 1001) RBC (test code = 4.99 M/UL 3.80-5.40 1002) HEMOGLOBIN (test code 13.8 G/DL 11.5-15.5 = 1003) HEMATOCRIT (test code 40.2 % 34.0-45.0 = 1004) MCV (test code = 80.6 fL 80.0-99.0 1005) MCH (test code = 27.7 PG 25.0-33.0 1006) MCHC (test code = 34.3 G/DL 31.0-36.0 1007) RDW (test code = 14.3 % 11.5-15.0 1038) NEUTROPHILS (test 79.5 % code = 1008) LYMPHOCYTES (test 9.8 % code = 1010) MONOCYTES (test code 9.8 % = 1011) EOSINOPHILS (test 0.1 % code = 1012) BASOPHILS (test code 0.6 % = 1013) IMMATURE GRANULOCYTES 0.2 % (test code = 1036) NUCLEATED RBCS (test 0.0 /100 WBC'S See_Comment [Aut omated code = 1065) message] The sy stem which generated this result transmitted reference range : 0.0. The refere nce range was not u sed to interpret th is result as normal/abnormal . PLATELET COUNT (test 334 K/UL 130-400 code = 1015) ABSOLUTE NEUTROPHILS 7.21 K/UL 1.50-7.50 (test code = 1066) ABSOLUTE LYMPHOCYTES 0.89 K/UL 1.00-4.00 L (test code = 1067) ABSOLUTE MONOCYTES 0.89 K/UL 0.20-1.00 (test code = 1068) ABSOLUTE EOSINOPHILS 0.01 K/UL 0.00-0.50 (test code = 1040) ABSOLUTE BASOPHILS 0.05 K/UL 0.00-0.20 (test code = 1069) ABS IMMATURE 0.02 K/UL 0.00-0.10 GRANULOCYTES (test code = 1020) ABS NUCLEATED RBCS 0.00 K/UL 0.00-0.11 (test code = 97688)
[2022-06-16 05:09] LABS: Urine Blood Negative (Negative); Urine Glucose Negative (Negative); Urine Protein Negative (Negative); Urine Specific Gravity 1.025 (1.005-1.030); Urine pH 5.5 (5.0-7.0)
[2022-06-16 05:14] LABS: Absolute Lymphocytes (CBC) 2.2 K/uL (0.7-4.9); Hematocrit 37.1 % (36.0-45.0); Lymphocytes % 15.9 % (15.3-44.8); MCV 87.6 fL (80-100); MPV 7.8 fL (7.6-11.3); RBC Red Blood Cell Count 4.24 M/uL (3.86-4.86)
[2022-06-16 05:24] LABS: Urine Bacteria <20 /HPF (<20); Urine Mucus Slight /HPF (None Seen); Urine RBC <5 /HPF (None Seen)
[2022-06-16 05:40] LABS: Potassium 3.3 mmol/L (3.5-5.1)
--- NOTE | 2022-06-16 07:10 | EDPHYS ---
Physician Documentation [facility] Name: Shamika Sam Age: 32 yrs Sex: Female : 1990 Arrival Date: 06/16/2022 Time: 04:21 Bed 6 Private MD: ED Physician Johnny Willis HPI: 06/16 04:51 This 32 yrs old Female presents to ER via Ambulatory with complaints of rt Vaginal Bleeding, + Preg <12wks. 04:51 The patient presents to the emergency department with vaginal bleeding, described as rt spotting. course: Ultrasound: the patient has not had an ultrasound. Previous pregnancies: the patient has never been . Associated signs and symptoms: The patient has no apparent associated signs or symptoms. LMP started on 05/04. Patient is a G1, P0 had a positive test yesterday. The patient noticed some spotting when she wiped after using the bathroom today. She denies any other symptoms at this time. Symptoms are mild in severity, no other aggravating or alleviating factors.. [employer]: 04:40 LMP 05/04/2022 tw5 Historical: - Allergies: 04:40 Morphine (headache); tw5 - PMHx: 04:40 Diverticulitis; tw5 - PSHx: 04:40 hernia repair; removal of left ovary; removal of part of large intestine; tw5 - Immunization history:: Flu vaccine is not up to date. - Social history:: Smoking status: Patient denies any tobacco usage or history of. - Family history:: not pertinent. ROS: 04:51 Constitutional: Negative for fever, chills, and weight loss, Eyes: Negative for injury, rt pain, redness, and discharge, Cardiovascular: Negative for chest pain, palpitations, and edema, Respiratory: Negative for shortness of breath, cough, wheezing, and pleuritic chest pain, Abdomen/GI: Negative for abdominal pain, nausea, vomiting, diarrhea, and constipation, Skin: Negative for injury, rash, and discoloration, Neuro: Negative for headache, weakness, numbness, tingling, and seizure, Psych: Negative for depression, anxiety, suicide ideation, homicidal ideation, and hallucinations. 04:51 : Positive for vaginal bleeding, Negative for difficulty urinating. Exam: 04:51 Constitutional: This is a well developed, well nourished patient who is awake, alert, rt and in no acute distress. Head/Face: Normocephalic, atraumatic. Chest/axilla: Normal chest wall appearance and motion. Nontender with no deformity. No lesions are appreciated. Cardiovascular: Regular rate and rhythm with a normal S1 and S2. No gallops, murmurs, or rubs. Normal PMI, no JVD. No pulse deficits. Respiratory: Lungs have equal breath sounds bilaterally, clear to auscultation and percussion. No rales, rhonchi or wheezes noted. No increased work of breathing, no retractions or nasal flaring. Abdomen/GI: Soft, non-tender, with normal bowel sounds. No distension or tympany. No guarding or rebound. No evidence of tenderness throughout. Skin: Warm, dry with normal turgor. Normal color with no rashes, no lesions, and no evidence of cellulitis. MS/ Extremity: Pulses equal, no cyanosis. Neurovascular intact. Full, normal range of motion. Neuro: Awake and alert, GCS 15, oriented to person, place, time, and situation. Cranial nerves II-XII grossly intact. Motor strength 5/5 in all extremities. Sensory grossly intact. Cerebellar exam normal. Normal gait. Psych: Awake, alert, with orientation to person, place and time. Behavior, mood, and affect are within normal limits. Vital Signs: 04:36 BP 168 / 105; Pulse 109; Resp 18; Temp 98.5; Pulse Ox 99% ; Weight 115.67 kg; Height 5 tw5 ft. 1 in. (154.94 cm); Pain 0/10; 05:17 BP 146 / 94; Pulse 95; Resp 18; Pulse Ox 100% ; Pain 0/10; pf1 06:15 BP 124 / 80; Pulse 87; Resp 18; Pulse Ox 97% on R/A; Pain 0/10; pf1 07:15 BP 127 / 79; Pulse 89; Resp 18; Temp 98; Pulse Ox 97% on R/A; Pain 0/10; pf1 04:36 Body Mass Index 48.18 (115.67 kg, 154.94 cm) tw5 MDM: 04:35 Patient medically screened. rt 07:09 Differential diagnosis: Ectopic , missed AB, threatened AB. Data reviewed: rt vital signs, nurses notes, lab test result(s), radiologic studies. Counseling: I had a detailed discussion with the patient and/or guardian regarding: the need for outpatient follow up, an OB/Gyne specialist. 06/16 04:43 Order name: Abo/rh Typing; Complete Time: 05:55 rt 06/16 04:43 Order name: Basic Metabolic Panel; Complete Time: 06:05 rt 06/16 04:43 Order name: CBC with Diff; Complete Time: 05:55 rt 06/16 04:43 Order name: Quantitative Hcg; Complete Time: 06:05 rt 06/16 04:43 Order name: UA MICROSCOPIC; Complete Time: 05:55 rt 06/16 05:09 Order name: Urine Dipstick-Ancillary; Complete Time: 05:55 EDMS 06/16 04:43 Order name: US Transvaginal Ob rt 06/16 04:43 Order name: IV Saline Lock; Complete Time: 04:55 rt 06/16 04:43 Order name: Labs collected and sent; Complete Time: 04:55 rt 06/16 04:43 Order name: NPO; Complete Time: 05:16 rt 06/16 04:43 Order name: Urine Dipstick-Ancillary (obtain specimen); Complete Time: 05:16 rt 06/16 06:12 Order name: ABO/RH no charge; Complete Time: 06:13 EDMS Administered Medications: No medications were administered Disposition Summary: 06/16/22 07:09 Discharge Ordered Location: Home rt Problem: new rt Symptoms: have improved rt Condition: Stable rt Diagnosis - Threatened rt Followup: rt - With: Private Physician - When: 5 - 6 days - Reason: Discharge Instructions: - Discharge Summary Sheet rt - Threatened Miscarriage rt Forms: - Medication Reconciliation Form rt - Thank You Letter rt - Antibiotic Education rt - Work release form hb - Prescription Opioid Use rt Signatures: Dispatcher [employer] EDMackenzie Cabrales tw5 Johnny Willis MD MD rt
--- NOTE | 2022-06-16 07:10 | ER ---
Nurse's Notes [facility] Name: Shamika Sam Age: 32 yrs Sex: Female : 1990 Arrival Date: 06/16/2022 Time: 04:21 Bed 6 Private MD: Diagnosis: Threatened Presentation: 06/16 04:36 Chief complaint: Patient states: "I had a home positive test last night, but tw5 then I started spotting. This has all came as a surprise to me because I had diverticulitis there perforated and caused infection. They had to take out my left ovary and part of my large intestine.". Coronavirus screen: Vaccine status: Patient reports being unvaccinated. Ebola Screen: Patient negative for fever greater than or equal to 101.5 degrees Fahrenheit, and additional compatible Ebola Virus Disease symptoms Patient denies exposure to infectious person. Patient denies travel to an Ebola-affected area in the 21 days before illness onset. Initial Sepsis Screen: Does the patient meet any 2 criteria? No. Patient's initial sepsis screen is negative. Does the patient have a suspected source of infection? No. Patient's initial sepsis screen is negative. Risk Assessment: Do you want to hurt yourself or someone else? Patient reports no desire to harm self or others. Onset of symptoms was June 16, 2022 at 04:00. 04:36 Method Of Arrival: Ambulatory tw5 04:36 Acuity: JEANNETTE 3 tw5 Triage Assessment: 04:40 General: Appears in no apparent distress. Behavior is calm, cooperative. Pain: Pain tw5 currently is 0 out of 10 on a pain scale. : RIVET TESTER: 04:40 LMP 05/04/2022 tw5 Historical: - Allergies: 04:40 Morphine (headache); tw5 - PMHx: 04:40 Diverticulitis; tw5 - PSHx: 04:40 hernia repair; removal of left ovary; removal of part of large intestine; tw5 - Immunization history:: Flu vaccine is not up to date. - Social history:: Smoking status: Patient denies any tobacco usage or history of. - Family history:: not pertinent. Screenin:00 [facility] ED Fall Risk Assessment (Adult) History of falling in the last 3 months, pf1 including since admission No falls in past 3 months (0 pts) Confusion or Disorientation No (0 pts) Intoxicated or Sedated No (0 pts) Impaired Gait No (0 pts) Mobility Assist Device Used No (0 pt) Altered Elimination No (0 pt) Score/Fall Risk Level 0 - 2 = Low Risk Oriented to surroundings, Maintained a safe environment, Educated pt \\T\\ family on fall prevention, incl call for assistance when getting out of bed, Assessed \\T\\ reinforced patient's understanding of fall precautions, Provided non-skid footwear, Hourly rounding (assess needs \\T\\ fall precautionary measures) done, Used ambulatory aids as needed (educated on \\T\\ assisted with), Used gait belt as appropriate. Abuse screen: Denies threats or abuse. Nutritional screening: No deficits noted. Tuberculosis screening: No symptoms or risk factors identified. Assessment: 04:40 Obstetrical Assessment: General assessment: awake and alert, skin warm and dry, pf1 respirations even and unlabored. 04:40 General: Appears in no apparent distress. comfortable, obese, well groomed, well pf1 developed, Behavior is calm, cooperative, appropriate for age, quiet. Pain: Denies pain. Neuro: Level of Consciousness is awake, alert, obeys commands, Oriented to person, place, time, situation. Cardiovascular: No deficits noted. Capillary refill < 3 seconds Patient's skin is warm and dry. Respiratory: No deficits noted. Airway is patent Trachea midline Respiratory effort is even, unlabored, Respiratory pattern is regular, symmetrical, Breath sounds are clear bilaterally. GI: No deficits noted. Abdomen is round non-distended, Bowel sounds present X 4 quads. : Reports vaginal bleeding that is spotty, patient stated vaginal pinkish spotting x 2 episodes,onset yesterday. EENT: No deficits noted. Derm: No deficits noted. Musculoskeletal: No deficits noted. 05:30 Reassessment: Patient appears in no apparent distress at this time. Patient and/or pf1 family updated on plan of care and expected duration. Pain level reassessed. Patient is alert, oriented x 3, equal unlabored respirations, skin warm/dry/pink. Patient states feeling better. 06:30 Reassessment: Patient appears in no apparent distress at this time. No changes from pf1 previously documented assessment. Patient and/or family updated on plan of care and expected duration. Pain level reassessed. Patient is alert, oriented x 3, equal unlabored respirations, skin warm/dry/pink. Patient states feeling better. Vital Signs: 04:36 BP 168 / 105; Pulse 109; Resp 18; Temp 98.5; Pulse Ox 99% ; Weight 115.67 kg; Height 5 tw5 ft. 1 in. (154.94 cm); Pain 0/10; 05:17 BP 146 / 94; Pulse 95; Resp 18; Pulse Ox 100% ; Pain 0/10; pf1 06:15 BP 124 / 80; Pulse 87; Resp 18; Pulse Ox 97% on R/A; Pain 0/10; pf1 07:15 BP 127 / 79; Pulse 89; Resp 18; Temp 98; Pulse Ox 97% on R/A; Pain 0/10; pf1 04:36 Body Mass Index 48.18 (115.67 kg, 154.94 cm) tw5 ED Course: 04:21 Patient arrived in ED. ja2 04:28 Johnny Willis MD is Attending Physician. rt 04:40 Triage completed. tw5 04:40 Arm band placed on. tw5 04:45 Patient has correct armband on for positive identification. Placed in gown. Bed in low pf1 position. Call light in reach. 04:45 Inserted saline lock: 20 gauge in right antecubital area, using aseptic technique. pf1 Blood collected. 04:56 Abo/rh Typing Sent. pf1 04:56 Basic Metabolic Panel Sent. pf1 04:56 CBC with Diff Sent. pf1 04:56 Quantitative Hcg Sent. pf1 05:16 UA MICROSCOPIC Sent. pf1 05:19 Teena sood, CAT is Primary Nurse. pf1 05:35 Transvaginal Ob In Process Unspecified. EDMS 07:01 Attending Physician role handed off by Johnny Willis MD rn 07:01 Juve Raymundo MD is Attending Physician. rn 07:07 Johnny Willis MD is Attending Physician. rn 07:15 IV discontinued, intact, bleeding controlled, No redness/swelling at site. Pressure pf1 dressing applied. 07:18 No provider procedures requiring assistance completed. pf1 Administered Medications: No medications were administered Medication: 07:18 VIS not applicable for this client. pf1 Outcome: 07:09 Discharge ordered by . rt 07:17 Discharged to home ambulatory. pf1 07:17 Condition: improved 07:17 Discharge instructions given to patient, Instructed on discharge instructions, Demonstrated understanding of instructions, follow-up care. 07:18 Patient left the ED. pf1 Signatures: Dispatcher [employer] Juve Stiles MD MD rn Alexander, Jessica ja2 Wood, Tiffany tw5 Johnny Willis MD MD rt finley, Pamala RN RN pf1
[2022-06-16 07:44] VITALS: O2SAT 97
[2022-06-16 07:45] VITALS: BP 127/79; TEMP 98
--- NOTE | 2022-06-16 08:29 | RAD REPORT ---
EXAM DESCRIPTION: US - Transvaginal OB - 06/16/2022 5:33 am CLINICAL HISTORY: VAGINAL BLEEDING Pelvic pain COMPARISON: No comparisons FINDINGS: A single gestational sac is seen within the uterus. The shape of the sac is within normal limits for gestational age. Mean sac diameter 4 mm corresponding to 5 weeks 1 day gestational age. No yolk sac or embryo yet detected. The maternal adnexa and right ovary are within normal limits. Left ovary surgically absent. Normal blood flow to right ovary. IMPRESSION: Small rounded cystic structure in the fundal endometrium probably small gestational sac. No embryonic components yet seen. Recommend follow-up pelvic sonography in 10-12 days and serial HCG levels.
== END 2022-06-16 07:18 | disposition home or self-care (01) ==
LOC: ER 04:16
DX: O20.0 Threatened abortion (principal); Z88.5 Allergy status to narcotic agent
CPT/HCPCS: 36415; 76817; 80048; 81003; 81015; 84702; 85025; 86900; 86901; 99284